=== PATIENT | male | born 1930 | race Caucasian/White ===

== ENCOUNTER 2016-03-30 10:37 | Outpatient (CLI) | payer MEDICARE, BC | END 2016-03-30 10:38 | disposition home or self-care (01) | DX: R30.0 Dysuria (principal) ==

== ENCOUNTER 2016-03-30 13:33 | Outpatient (CLI) | payer MEDICARE, BC | END 2016-03-30 13:34 | disposition home or self-care (01) | DX: R05 Cough (principal); M50.30 Other cervical disc degeneration, unspecified cervical region; M47.812 Spondylosis without myelopathy or radiculopathy, cervical region; R30.0 Dysuria ==

== ENCOUNTER 2016-04-03 | Outpatient (CLI) | payer MEDICARE, BC | END 2016-04-03 13:35 | disposition home or self-care (01) | DX: R07.9 Chest pain, unspecified (principal) ==

== ENCOUNTER 2016-04-07 09:08 | Outpatient (CLI) | payer MEDICARE, BC | END 2016-04-07 09:09 | disposition home or self-care (01) | DX: N39.0 Urinary tract infection, site not specified (principal) ==

== ENCOUNTER 2016-06-17 21:06 | Outpatient (CLI) | payer MEDICARE, BC | END 2016-06-17 21:07 | disposition short-term general hospital (02) | DX: R10.9 Unspecified abdominal pain (principal) | CPT/HCPCS: A0170; A0425; A0429 ==

== ENCOUNTER 2016-06-19 12:35 | Outpatient (CLI) | payer MEDICARE, BC | END 2016-06-19 12:36 | disposition home or self-care (01) | DX: N40.1 Benign prostatic hyperplasia with lower urinary tract symptoms (principal); I25.9 Chronic ischemic heart disease, unspecified; N18.3 Chronic kidney disease, stage 3 (moderate); R05 Cough; K21.9 Gastro-esophageal reflux disease without esophagitis; E78.5 Hyperlipidemia, unspecified; D61.818 Other pancytopenia; L29.9 Pruritus, unspecified; E03.9 Hypothyroidism, unspecified; N39.0 Urinary tract infection, site not specified ==

== ENCOUNTER 2016-06-21 11:31 | Outpatient (CLI) | payer MEDICARE, BC ==
--- NOTE | 2016-06-21 16:44 | XRAY Report ---
THREE VIEW LUMBAR SPINE: 06/21/2016 CLINICAL INDICATION: Lucency of spine on CT. FINDINGS: AP, lateral, and coned down views of the lumbar spine are compared to previous films of . No CT is available for comparison. There has been progression of degenerative disk and facet disease from 2012, with increasing disk spa ce narrowing and osteophyte formations. There is no evidence of compression fracture or subluxation. Vascular calcifications are present. IMPRESSION: PROGRESSION OF DEGENERATIVE CHANGES OF THE LUMBAR SPINE FROM 05/28/2012. JOB #: [id number] EXT JOB #:[id number]
== END 2016-06-21 11:32 | disposition home or self-care (01) ==
LOC: DI.S 11:31
PROVIDERS: ATTEND Internal Medicine
DX: M51.36 Other intervertebral disc degeneration, lumbar region (principal); M47.896 Other spondylosis, lumbar region
CPT/HCPCS: 72100

== ENCOUNTER 2016-06-23 10:24 | Outpatient (CLI) | payer MEDICARE, BC ==
[2016-06-27 23:33] LABS: ALPHA 1 GLOBULIN 0.3 g/dL (0.2-0.3); ALPHA 2 GLOBULIN 0.6 g/dL (0.5-0.9); BETA 1 GLOBULIN 0.4 g/dL (0.4-0.6); BETA 2 GLOBULIN 0.3 g/dL (0.2-0.5)
[2016-06-28 16:32] LABS: TEST RESULT REPORT (())
== END 2016-06-23 10:25 | disposition home or self-care (01) ==
LOC: LAB.F 10:24
PROVIDERS: ATTEND Internal Medicine
DX: D61.818 Other pancytopenia (principal)
CPT/HCPCS: 36415; 81599; 82570; 84155; 84156; 84165; 84166; 86335

== ENCOUNTER 2016-06-30 22:36 | Outpatient (CLI) | payer MEDICARE, BC | END 2016-06-30 22:37 | disposition critical access hospital (66) | DX: R00.2 Palpitations (principal) | CPT/HCPCS: A0425; A0427 ==

== ENCOUNTER 2016-06-30 23:11 | Emergency (ER) | payer MEDICARE, BC ==
--- NOTE | 2016-06-30 23:28 | ED Physician Documentation ---
PD HPI CHEST PAIN - Stated complaint Stated Complaint: HEART PALPITATIONS - Chief complaint Chief Complaint: Cardiac - History obtained from History obtained from: Patient - History of Present Illness Timing - onset: How many minutes ago, How many hours ago (1) Timing - onset during: Rest Timing - details: Abrupt onset, Now resolved Quality: Other (palpitations) Associated symptoms: Palpitations. No: Shortness of air, Diaphoresis, Nausea, Vomiting, Feeling faint / dizzy Similar symptoms before: Work up / diagnostics, Treatment Recently seen: Not recently seen - Additional information Additional information: Patient is a 86 year old male with a history of a fib and multiple stents who is presenting to the emergency department for palpitations. according to patient and ems patient was lying in bed when he felt his heart racing. Patient states that it felt fast a regular. patient lives alone and called ems. when ems arrived the symptoms had already stopped. Patient took his atenolol which he had skipped earlier. Patient denied any chest pain, or shortness of breath with the episode. Upon arrival to the emergency department patient denied any acute complaints. Review of Systems Constitutional: denies: Fever, Chills, Myalgias Eyes: denies: Photophobia, Discharge, Irritation Ears: denies: Ear pain Nose: denies: Rhinorrhea / runny nose, Congestion Throat: denies: Oral lesions / sores, Sore throat Respiratory: denies: Dyspnea, Cough, Wheezing GI: reports: Abdominal Pain, Constipation : denies: Dysuria, Frequency, Hesitancy Skin: denies: Rash, Lesions Musculoskeletal: denies: Neck pain, Back pain Neurologic: denies: Generalized weakness, Focal weakness, Numbness Immunocompromised: denies: Immunocompromised PD PAST MEDICAL HISTORY - Past Medical History Cardiovascular: Other Respiratory: Pneumonia Neuro: None Endocrine/Autoimmune: HyPOthyroidism GI: GERD, Hiatal hernia, Diverticulitis : Frequency HEENT: Glaucoma Psych: Depression Musculoskeletal: Osteoarthritis Derm: None - Past Surgical History Past Surgical History: Yes General: Cholecystectomy, Appendectomy, Colonoscopy Ortho: Arthroscopic surgery Cardiovascular: CABG, Coronary stent HEENT: Cataracts, Tonsil/Adenoidectomy - Present Medications Home Medications: Ambulatory Orders Medication Instructions Recorded Confirmed Aspirin 81 mg PO DAILY 02/07/13 06/30/16 Atenolol 12.5 mg PO BID 02/07/13 06/30/16 Clonazepam 0.5 mg PO DAILY PRN 02/07/13 06/30/16 Levothyroxine Sodium [Synthroid] 25 mcg PO DAILY 02/07/13 06/30/16 Brinzolamide 1% Ophth Drops [Azopt 1 drop RIGHTEYE DAILY 03/27/15 06/30/16 1% Ophth Drops] Rosuvastatin Calcium [Crestor] 5 mg PO DAILY 03/27/15 06/30/16 Omeprazole [PriLOSEC] 0 mg PO DAILY 06/30/16 06/30/16 - Allergies Allergies/Adverse Reactions: Allergies Allergy/AdvReac Type Severity Reaction Status Date / Time lorazepam [From Ativan] Allergy Intermediate Nausea Verified 06/30/16 23:18 ciprofloxacin HCl * AdvReac Intermediate confusion Verified 06/30/16 23:18 [From Cipro] codeine AdvReac Intermediate Cramps Verified 06/30/16 23:18 levofloxacin [From Levaquin] AdvReac Intermediate confusion Verified 06/30/16 23 :18 Sulfa (Sulfonamide AdvReac Intermediate Nausea Verified 06/30/16 23:18 Antibiotics) - Social History Does the pt smoke?: No Smoking Status: Former smoker Does the pt drink ETOH?: No Does the pt have substance abuse?: No - Immunizations Immunizations are current?: Yes - POLST Patient has POLST: Yes PD ED PE NORMAL - Vitals Vital signs reviewed: Yes - General General: Alert and oriented X 3, No acute distress, Well developed/nourished - HEENT HEENT: Atraumatic, PERRL - Neck Neck: Supple, no meningeal sign, No JVD - Cardiac Cardiac: RRR, No murmur, No rub - Respiratory Respiratory: No respiratory distress, Clear bilaterally - Abdomen Abdomen: Soft, Non distended - Derm Derm: Normal color, Warm and dry, No rash - Extremities Extremities: No deformity, No tenderness to palpate, No calf tenderness / cord - Neuro Neuro: Alert and oriented X 3, visual basic developer 2-12 intact, No motor deficit, No sensory deficit, Normal speech - Psych Psych: Normal mood, Normal affect Results - Vitals Vitals: Vital Signs - 24 hr 06/30/16 07/01/16 23:12 00:17 Temperature 36.3 C L Heart Rate 67 61 Respiratory 16 16 Rate Blood Pressure 163/77 H 142/71 H O2 Saturation 100 97 Oxygen O2 Source Room air - EKG (time done) 2313 Rate: Rate (enter#) (66) Rhythm: NSR [place]: Normal Intervals: Normal [place] QRS: Normal Ischemia: Normal ST segments Compare to prior EKG: Old EKG unavailable - Labs Labs: Laboratory Tests 06/30/16 06/30/16 06/30/16 23:27 23:27 23:27 WBC 2.6 L RBC 3.20 L Hgb 10.6 L Hct 30.5 L MCV 95.2 H MCH 33.1 H MCHC 34.7 RDW 14.3 Plt Count 103 L MPV 8.5 Neut # 1.4 L Lymph # 0.9 L [place] # 0.2 Eos # 0.1 Baso # 0.0 Absolute Nucleated RBC 0.00 Nucleated RBCs 0.0 Manual Slide Review Indicated Platelet Estimate DECREASED (<130,000) Platelet Morphology NORMAL APPEARANCE RBC Morph Micro Appear 2+ OVALOCYTES Sodium 137 Potassium 4.0 Chloride 109 Carbon Dioxide 21 Anion Gap 7.0 BUN 14 Creatinine 1.1 Estimated GFR (MDRD) 64 L Glucose 86 Calcium 8.6 Phosphorus 3.0 Magnesium 1.8 Total Bilirubin 0.5 AST 19 ALT 18 Alkaline Phosphatase 61 Troponin I < 0.04 B-Natriuretic Peptide Total Protein 6.5 L Albumin 3.9 Globulin 2.6 Albumin/Globulin Ratio 1.5 Lipase 28 TSH 06/30/16 06/30/16 23:27 23:27 WBC RBC Hgb Hct MCV MCH MCHC RDW Plt Count MPV Neut # Lymph # [place] # Eos # Baso # Absolute Nucleated RBC Nucleated RBCs Manual Slide Review Platelet Estimate Platelet Morphology RBC Morph Micro Appear Sodium Potassium Chloride Carbon Dioxide Anion Gap BUN Creatinine Estimated GFR (MDRD) Glucose Calcium Phosphorus Magnesium Total Bilirubin AST ALT Alkaline Phosphatase Troponin I B-Natriuretic Peptide 135 H Total Protein Albumin Globulin Albumin/Globulin Ratio Lipase TSH 3.98 - Rads (name of study) chest x-ray Radiology: Final report received (mild cardiomegaly) PD MEDICAL DECISION MAKING - ED course Complexity details: reviewed old records, reviewed results, re-evaluated patient , considered differential, d/w patient ED course: Patient was seen and examined at bedside. patient was in no acute distress. vital signs were within normal limits. ekg was performed and revealed nsr at 66. labs and x-ray were within normal limits aside from a leukopenia. Patient states that he has a follow up with a cork painter and grader in 10 days for that. Patient remained in the sinus rhythm, and continued to deny any chest pain or shortness of breath while in the emergency department. Patient required no further work up at this time and was stable for discharge with outpatient follow up. Departure - Departure Disposition: Home, Self Care Clinical Impression: Intermittent palpitations Condition: Good Instructions: ED Palpitations Follow-Up: primary,care provider [Other] - Within 3 Days Comments: Your diagnostics today were within normal limits. the ekg was normal sinus rhythm. Your wbc continues to remain low so you will need to follow up with your cork painter and grader for that. I would recommend following up with your pmd or heart doctor and do a trial of a holter monitor. For your bloating I would recommend metamucil daily as well by a probiotic. You can continue to follow up with your gi doctor and follow their recommendations. You may return to the emergency department at any time for new, worsening or uncontrollable symptoms.
[2016-06-30 23:36] LABS: BASOPHILS % (AUTO) 0.6 %; EOSINOPHILS # (AUTO) 0.1 10^3/uL (0.0-0.7); EOSINOPHILS % (AUTO) 2.2 %; HCT - HEMATOCRIT 30.5 % (42.0-52.0); HGB - HEMOGLOBIN 10.6 g/dL (14.0-18.0); LYMPHOCYTES # (AUTO) 0.9 10^3/uL (1.5-3.5); LYMPHOCYTES % (AUTO) 34.8 %; MEAN CORPUSCULAR HEMOGLOBIN 33.1 pg (27.0-31.0); MEAN CORPUSCULAR HGB CONC 34.7 g/dL (32.0-36.0); MEAN CORPUSCULAR VOLUME 95.2 fL (80.0-94.0); MEAN PLATELET VOLUME 8.5 fL (7.4-11.4); MONOCYTES # (AUTO) 0.2 10^3/uL (0.0-1.0); NEUTROPHILS # (AUTO) 1.4 10^3/uL (1.5-6.6); NEUTROPHILS % (AUTO) 53.4 %; RED CELL DISTRIBUTION WIDTH 14.3 % (12.0-15.0); UNCORRECTED WHITE BLOOD COUNT 2.6 x10^3/uL; WHITE BLOOD COUNT 2.6 x10^3/uL (4.8-10.8)
[2016-06-30 23:51] LABS: ALBUMIN/GLOBULIN RATIO 1.5 (1.0-2.2); BILIRUBIN,TOTAL 0.5 mg/dL (0.2-1.0); CALCIUM 8.6 mg/dL (8.5-10.3); CREATININE 1.1 mg/dL (0.6-1.2); MAGNESIUM 1.8 mg/dL (1.7-2.8); TOTAL PROTEIN 6.5 g/dL (6.7-8.2)
--- NOTE | 2016-07-01 00:14 | XRAY Preliminary Report ---
Exam: XR Chest 1 View IMPRESSION: 1. Mild cardiac enlargement. 2. Hypoventilatory changes. [facility] SITE ID: [id number]
--- NOTE | 2016-07-01 00:16 | XRAY Report ---
EXAM: CHEST RADIOGRAPHY EXAM DATE: 06/30/2016 11:59 PM. CLINICAL HISTORY: Palpitations. COMPARISON: None. TECHNIQUE: 1 view. FINDINGS: Lungs/Pleura: Patchy bilateral right greater than left lower lobe opacities. Decreased lung volumes. No pneumothorax or large effusions. Mediastinum: Sternotomy. Mild cardiac enlargement. Ectatic thoracic aorta. EKG leads overlie the ches t. Other: None. IMPRESSION: 1. Mild cardiac enlargement. 2. Hypoventilatory changes. [facility] Referring Provider Line: [phone] SITE ID: [id number]
[2016-07-01 00:18] VITALS: BP 142/71
[2016-07-01 00:29] LABS: PLATELET ESTIMATE, MANUAL DECREASED (<130,000) (NORMAL); PLATELET MORPHOLOGY NORMAL APPEARANCE (NORMAL)
== END 2016-07-01 00:51 | disposition home or self-care (01) ==
LOC: EDUNIT# → ED 23:11
DX: R00.2 Palpitations (principal); I48.91 Unspecified atrial fibrillation; E03.9 Hypothyroidism, unspecified; K21.9 Gastro-esophageal reflux disease without esophagitis; M19.90 Unspecified osteoarthritis, unspecified site; Z79.82 Long term (current) use of aspirin; Z87.891 Personal history of nicotine dependence
CPT/HCPCS: 36415; 71010; 80053; 83690; 83735; 83880; 84100; 84443; 84484; 85025; 93005; 93010; 99284; 99285

== ENCOUNTER 2016-07-06 10:10 | Outpatient (CLI) | payer MEDICARE, BC ==
[2016-07-06 18:26] LABS: BASOPHILS % (AUTO) 0.5 %; EOSINOPHILS % (AUTO) 1.5 %; HCT - HEMATOCRIT 35.5 % (42.0-52.0); HGB - HEMOGLOBIN 11.6 g/dL (14.0-18.0); LYMPHOCYTES % (AUTO) 25.3 %; MEAN CORPUSCULAR HEMOGLOBIN 32.1 pg (27.0-31.0); MEAN CORPUSCULAR HGB CONC 32.7 g/dL (32.0-36.0); MEAN CORPUSCULAR VOLUME 98.1 fL (80.0-94.0); MEAN PLATELET VOLUME 9.1 fL (7.4-11.4); MONOCYTES % (AUTO) 8.2 %; NEUTROPHILS % (AUTO) 64.5 %; RED BLOOD COUNT 3.62 10^6/uL (4.70-6.10); RED CELL DISTRIBUTION WIDTH 14.4 % (12.0-15.0); UNCORRECTED WHITE BLOOD COUNT 2.5 x10^3/uL; WHITE BLOOD COUNT 2.5 x10^3/uL (4.8-10.8)
[2016-07-06 18:29] LABS: BAND NEUTROPHILS % (MANUAL) 0 %
[2016-07-06 18:30] LABS: BUN - BLOOD UREA NITROGEN 14 mg/dL (6-20); CARBON DIOXIDE - CO2 24 mmol/L (21-32); CHLORIDE 107 mmol/L (101-111); CHOL/HDL RATIO 3.7 (<5.0); CHOLESTEROL 170 mg/dL; CREATININE 1.1 mg/dL (0.6-1.2); GFR - MDRD 64 (>89); GLUCOSE 90 mg/dL (70-100); HDL CHOLESTEROL 46 mg/dL; LDL/HDL RATIO 2.4 (<3.6); POTASSIUM 4.4 mmol/L (3.5-5.0); SODIUM 138 mmol/L (135-145); TRIGLYCERIDES 74 mg/dL; VLDL CHOLESTEROL 15 mg/dL
[2016-07-06 18:46] LABS: EOSINOPHILS % (MANUAL) 1 %; LYMPHOCYTES % (MANUAL) 23 %; NEUTROPHILS % (MANUAL) 74 %; NP AUTO DIFFERENTIAL? YES; NP MAN DIFFERENTIAL? NO; PLATELET ESTIMATE, MANUAL DECREASED (<130,000) (NORMAL); PLATELET MORPHOLOGY NORMAL APPEARANCE (NORMAL); TOTAL CELLS COUNTED 100
[2016-07-06 19:04] LABS: H. PYLORI IGG ANTIBODY POSITIVE (Negative); HPYLORI NEG QC Negative (Negative); HPYLORI POS QC POSITIVE (Positive)
== END 2016-07-06 10:11 | disposition home or self-care (01) ==
LOC: LAB.F 10:10
PROVIDERS: ATTEND Internal Medicine
DX: Z00.00 Encounter for general adult medical examination without abnormal findings (principal); R10.9 Unspecified abdominal pain; E03.9 Hypothyroidism, unspecified; N40.1 Benign prostatic hyperplasia with lower urinary tract symptoms; I25.9 Chronic ischemic heart disease, unspecified; N18.3 Chronic kidney disease, stage 3 (moderate); Z86.010 Personal history of colon polyps; E78.5 Hyperlipidemia, unspecified; N39.0 Urinary tract infection, site not specified; D61.818 Other pancytopenia; L29.9 Pruritus, unspecified; H91.90 Unspecified hearing loss, unspecified ear; K22.5 Diverticulum of esophagus, acquired
CPT/HCPCS: 36415; 80048; 80061; 84443; 85025; 87339

== ENCOUNTER 2016-07-15 10:01 | Outpatient (CLI) | payer MEDICARE, BC ==
--- NOTE | 2016-07-16 18:01 | Ultrasound Report ---
EXAM: MESENTERIC/CELIAC ARTERY DOPPLER ULTRASOUND EXAM DATE: 07/15/2016 11:28 AM. CLINICAL HISTORY: Abdominal pain. Unintentional weight loss. COMPARISON: CT abdomen/pelvis 03/27/2015. TECHNIQUE: Real-time sonographic vascular imaging was performed by the knurling machine tender through the [employer] arterial system with a linear transducer utilizing color-flow, Doppler flow and spectral analysi s. Multiple sales representative gas service static images were saved for review. FINDINGS: Aorta: 73cm/sec. Celiac Maybeury: Origin: 224 cm/sec. Proximal: 187 cm/sec. Mid: Unable to obtain. Distal: Unable to obtain. Hepatic Artery: 150 cm/sec. Splenic Artery: 138 cm/sec. Superior Mesenteric Artery: Unable to obtain. Inferior Mesenteric Artery: Origin: 85 cm/sec. Proximal: Unable to obtain. Mid: Unable to obtain. Distal: Unable to obtain. IMPRESSION: 1. Per knurling machine tender notes, extremely limited exam due to overlying bowel gas and patient discomfort wi th probe pressure. 2. The entire SMA, mid/distal celiac axis, and ROSAMARIA beyond the origin were not visualized. 3. 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 However, no significant stenosis is seen at this site on prior contrast-enhanced CT abdomen/pelvis. Consider further evaluation with CTA abdomen/pelvis. 3. Normal velocity at the ROSAMARIA origin. 4. 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 [facility] Referring Provider Line: [phone] SITE ID: [id number]
== END 2016-07-15 10:02 | disposition home or self-care (01) ==
LOC: DI 10:01
PROVIDERS: ATTEND Internal Medicine Gastroenterology
DX: R10.9 Unspecified abdominal pain (principal); I77.811 Abdominal aortic ectasia; R63.4 Abnormal weight loss
CPT/HCPCS: 93975

== ENCOUNTER 2016-07-19 12:03 | Day surgery (SDC) | payer MEDICARE, BC ==
[2016-07-19] MEDS ORDERED: LACTATED RINGERS 1,000 ML IV ONE (12:29)
[2016-07-19] MEDS ORDERED: MIDAZOLAM 2 MG/2 ML VIAL IVP ONE (13:35)
[2016-07-19] MEDS ORDERED: fentaNYL 100 MCG/2 ML VIAL IVP ONE (13:35)
[2016-07-19 14:47] VITALS: BP 135/61
== END 2016-07-19 12:04 | disposition home or self-care (01) ==
LOC: SDS 12:03
PROVIDERS: ATTEND Internal Medicine
PROC: 0DB78ZX Excision of Stomach, Pylorus, Via Natural or Artificial Opening Endoscopic, Diagnostic (ICD-10-PCS; 2016-07-19)
PROC: 0DB68ZX Excision of Stomach, Via Natural or Artificial Opening Endoscopic, Diagnostic (ICD-10-PCS; principal; 2016-07-19 13:30)
DX: R10.13 Epigastric pain (principal); R14.0 Abdominal distension (gaseous); K22.2 Esophageal obstruction; K44.9 Diaphragmatic hernia without obstruction or gangrene; E78.00 Pure hypercholesterolemia, unspecified; Z79.82 Long term (current) use of aspirin; E03.9 Hypothyroidism, unspecified
CPT/HCPCS: 43239; J7120; 88305

== ENCOUNTER 2016-07-28 07:00 | Outpatient (CLI) | payer MEDICARE, BC | END 2016-07-28 07:01 | disposition home or self-care (01) | LOC: LAB.R 07:00 | PROVIDERS: ATTEND Internal Medicine Gastroenterology | DX: R10.9 Unspecified abdominal pain (principal) | CPT/HCPCS: 87338 ==

== ENCOUNTER 2016-08-11 08:00 | Outpatient (CLI) | payer MEDICARE, BC | END 2016-08-11 08:01 | disposition home or self-care (01) | LOC: LAB.R 08:00 | PROVIDERS: ATTEND Internal Medicine Gastroenterology | DX: R10.9 Unspecified abdominal pain (principal); K57.92 Diverticulitis of intestine, part unspecified, without perforation or abscess without bleeding | CPT/HCPCS: 87338 ==

== ENCOUNTER 2016-08-27 19:08 | Outpatient (CLI) | payer MEDICARE, BC | END 2016-08-27 19:09 | disposition short-term general hospital (02) | LOC: EMS 19:08 | PROVIDERS: ATTEND Surgery | DX: R19.00 Intra-abdominal and pelvic swelling, mass and lump, unspecified site (principal); M79.89 Other specified soft tissue disorders; R53.1 Weakness | CPT/HCPCS: A0170; A0425; A0429 ==

== ENCOUNTER 2016-09-06 08:00 | Outpatient (CLI) | payer MEDICARE, BC | END 2016-09-06 08:01 | disposition home or self-care (01) | LOC: LAB.R 08:00 | PROVIDERS: ATTEND Internal Medicine Gastroenterology | DX: R10.9 Unspecified abdominal pain (principal); K57.92 Diverticulitis of intestine, part unspecified, without perforation or abscess without bleeding | CPT/HCPCS: 87338 ==

== ENCOUNTER 2016-09-08 08:50 | Outpatient (CLI) | payer MEDICARE, BC ==
[2016-09-08 18:07] LABS: BASOPHILS % (AUTO) 0.3 %; EOSINOPHILS % (AUTO) 1.7 %; HCT - HEMATOCRIT 35.1 % (42.0-52.0); HGB - HEMOGLOBIN 11.5 g/dL (14.0-18.0); LYMPHOCYTES # (AUTO) 0.5 10^3/uL (1.5-3.5); LYMPHOCYTES % (AUTO) 21.3 %; MEAN CORPUSCULAR HEMOGLOBIN 32.6 pg (27.0-31.0); MEAN CORPUSCULAR HGB CONC 32.9 g/dL (32.0-36.0); MEAN CORPUSCULAR VOLUME 99.2 fL (80.0-94.0); MONOCYTES # (AUTO) 0.2 10^3/uL (0.0-1.0); MONOCYTES % (AUTO) 7.8 %; NEUTROPHILS # (AUTO) 1.7 10^3/uL (1.5-6.6); NEUTROPHILS % (AUTO) 68.9 %; NUCLEATED RED BLOOD CELLS AUTO 0.1 /100WBC; RED BLOOD COUNT 3.54 10^6/uL (4.70-6.10); RED CELL DISTRIBUTION WIDTH 14.5 % (12.0-15.0); UNCORRECTED WHITE BLOOD COUNT 2.4 x10^3/uL; WHITE BLOOD COUNT 2.4 x10^3/uL (4.8-10.8)
[2016-09-08 18:11] LABS: CALCIUM 8.6 mg/dL (8.5-10.3); CREATININE 1.2 mg/dL (0.6-1.2); POTASSIUM 4.2 mmol/L (3.5-5.0)
[2016-09-08 18:55] LABS: INR 1.1 (0.8-1.2)
[2016-09-08 19:02] LABS: PARTIAL THROMBOPLASTIN TIME 26.7 secs (24.9-33.3)
[2016-09-08 21:55] LABS: PLATELET ESTIMATE, MANUAL DECREASED (<130,000) (NORMAL); PLATELET MORPHOLOGY 1+ GIANT PLATELETS (NORMAL)
== END 2016-09-08 08:51 | disposition home or self-care (01) ==
LOC: LAB.F 08:50
PROVIDERS: ATTEND Internal Medicine Cardiovascular Disease
DX: Z01.812 Encounter for preprocedural laboratory examination (principal); I25.118 Atherosclerotic heart disease of native coronary artery with other forms of angina pectoris; R94.39 Abnormal result of other cardiovascular function study; Z79.899 Other long term (current) drug therapy
CPT/HCPCS: 36415; 80048; 85025; 85610; 85730

== ENCOUNTER 2016-11-09 10:35 | Outpatient (CLI) | payer MEDICARE, BC ==
[2016-11-09 17:56] LABS: BILIRUBIN,URINE NEGATIVE (NEGATIVE)
[2016-11-09 17:57] LABS: ALBUMIN/GLOBULIN RATIO 1.6 (1.0-2.2); BILIRUBIN,TOTAL 0.9 mg/dL (0.2-1.0); CALCIUM 8.5 mg/dL (8.5-10.3); CREATININE 1.3 mg/dL (0.6-1.2); POTASSIUM 4.4 mmol/L (3.5-5.0); TOTAL PROTEIN 6.7 g/dL (6.7-8.2)
[2016-11-09 18:07] LABS: BASOPHILS % (AUTO) 0.3 %; EOSINOPHILS % (AUTO) 1.2 %; HCT - HEMATOCRIT 32.6 % (42.0-52.0); LYMPHOCYTES # (AUTO) 0.7 10^3/uL (1.5-3.5); LYMPHOCYTES % (AUTO) 22.9 %; MEAN CORPUSCULAR HEMOGLOBIN 32.9 pg (27.0-31.0); MEAN CORPUSCULAR HGB CONC 33.7 g/dL (32.0-36.0); MEAN CORPUSCULAR VOLUME 97.4 fL (80.0-94.0); MEAN PLATELET VOLUME 8.8 fL (7.4-11.4); MONOCYTES # (AUTO) 0.2 10^3/uL (0.0-1.0); MONOCYTES % (AUTO) 7.6 %; NEUTROPHILS # (AUTO) 2.2 10^3/uL (1.5-6.6); NUCLEATED RED BLOOD CELLS AUTO 0.3 /100WBC; RED BLOOD COUNT 3.34 10^6/uL (4.70-6.10); RED CELL DISTRIBUTION WIDTH 14.1 % (12.0-15.0); UNCORRECTED WHITE BLOOD COUNT 3.2 x10^3/uL; WHITE BLOOD COUNT 3.2 x10^3/uL (4.8-10.8)
[2016-11-09 18:14] LABS: UA CHARGE (STRIP ONLY) YES; UR CULTURE IF IND NOT INDICATED
== END 2016-11-09 10:36 | disposition home or self-care (01) ==
LOC: LAB.F 10:35
PROVIDERS: ATTEND Internal Medicine
DX: I25.9 Chronic ischemic heart disease, unspecified (principal); R35.0 Frequency of micturition; N18.3 Chronic kidney disease, stage 3 (moderate); R05 Cough; K21.9 Gastro-esophageal reflux disease without esophagitis; E78.5 Hyperlipidemia, unspecified; F41.8 Other specified anxiety disorders; D61.818 Other pancytopenia; L29.9 Pruritus, unspecified; E03.9 Hypothyroidism, unspecified
CPT/HCPCS: 36415; 80053; 81001; 81003; 85025; 87086

== ENCOUNTER 2017-01-01 11:56 | Outpatient (CLI) | payer MEDICARE, BC | END 2017-01-01 11:57 | disposition home or self-care (01) | LOC: LAB.S 11:56 | PROVIDERS: ATTEND Internal Medicine | DX: E03.9 Hypothyroidism, unspecified (principal); I25.9 Chronic ischemic heart disease, unspecified; N18.3 Chronic kidney disease, stage 3 (moderate); K21.9 Gastro-esophageal reflux disease without esophagitis; E78.5 Hyperlipidemia, unspecified; D61.818 Other pancytopenia | CPT/HCPCS: 36415; 84443 ==

== ENCOUNTER 2017-02-26 15:20 | Emergency (ER) | payer MEDICARE, BC ==
[2017-02-26] MEDS ORDERED: METOPROLOL TARTRATE 50 MG TABLET PO STA (16:25)
--- NOTE | 2017-02-26 16:35 | ED Physician Documentation ---
PD HPI DYSPNEA - Stated complaint Stated Complaint: LIGHT HEADED/WEAKNESS - Chief complaint Chief Complaint: Cardiac - History obtained from History obtained from: Patient, Family (daughter) - History of Present Illness Timing - onset: Other (87-year-old gentleman with history of coronary disease status post remote bypass and stenting, also has myelodysplastic syndrome undergoing chemotherapy. He was switched from atenolol to metoprolol yesterday, going from 12.5 mill grams twice daily of atenolol to 25 mg twice daily of metoprolol. Last night he started to feel rapid heart rate and mild shortness of breath which occurred this morning, no ongoing chest pain or shortness of breath at this juncture.) Review of Systems Constitutional: denies: Fever, Chills Ears: denies: Loss of hearing, Ear pain Nose: denies: Rhinorrhea / runny nose, Congestion Throat: denies: Sore throat Cardiac: reports: Palpitations. denies: Chest pain / pressure Respiratory: reports: Dyspnea. denies: Cough GI: reports: Diarrhea (A few days ago, gone). denies: Abdominal Pain, Nausea, Vomiting PD PAST MEDICAL HISTORY - Past Medical History Cardiovascular: Angina, Atrial fibrillation, Arrhythmia Respiratory: Pneumonia Neuro: None Endocrine/Autoimmune: HyPOthyroidism GI: GERD, Ulcers, Hemorrhoids, Diverticulitis : Benign prostate hypertrophy, Frequency HEENT: Glaucoma, Chronic hearing loss Psych: Panic attacks Musculoskeletal: Osteoarthritis Derm: Rosacea Other Past Medical History: Myelodysplastic syndrome - Past Surgical History Past Surgical History: Yes General: Cholecystectomy, Appendectomy, Colonoscopy Ortho: Arthroscopic surgery Cardiovascular: CABG, Coronary stent HEENT: Cataracts, Tonsil/Adenoidectomy - Present Medications Home Medications: Ambulatory Orders Medication Instructions Recorded Confirmed Aspirin 81 mg PO DAILY 02/07/13 02/20/17 Atenolol 12.5 mg PO BID 02/07/13 02/20/17 Rosuvastatin Calcium [Crestor] 5 mg PO DAILY 03/27/15 02/20/17 Brinzolamide 1% Ophth Drops [Azopt 1 drops OPTH BID 07/25/16 02/20/17 1% Ophth Drops] Levothyroxine Sodium [Synthroid] 25 mcg PO DAILY 07/25/16 02/20/17 Nitroglycerin [Nitrostat] 0.3 mg SL ONCE PRN 07/25/16 02/20/17 clonazePAM [KlonoPIN] 0.5 mg PO DAILY 01/25/17 02/20/17 Ondansetron HCl [Zofran] 1 tab PO DAILY PRN #30 tablet 01/29/17 02/20/17 Omeprazole 1 cap PO DAILY 02/06/17 02/20/17 Metoprolol Succinate [Toprol Xl] 1.5 tab PO BID #45 tablet 02/26/17 - Allergies Allergies/Adverse Reactions: Allergies Allergy/AdvReac Type Severity Reaction Status Date / Time lorazepam [From Ativan] Allergy Intermediate Nausea Verified 07/14/16 14:01 amylase [From Creon] Allergy Edema Verified 07/14/16 14:00 lipase [From Creon] Allergy Edema Verified 07/14/16 14:00 protease [From Creon] Allergy Edema Verified 07/14/16 14:00 ciprofloxacin HCl * AdvReac Intermediate confusion Verified 07/14/16 14:01 [From Cipro] codeine AdvReac Intermediate Cramps Verified 07/14/16 14:01 levofloxacin [From Levaquin] AdvReac Intermediate confusion Verified 07/14/16 14 :01 Sulfa (Sulfonamide AdvReac Intermediate Nausea Verified 07/14/16 14:01 Antibiotics) - Social History Does the pt smoke?: No Smoking Status: Never smoker Does the pt drink ETOH?: No Does the pt have substance abuse?: No - Immunizations Immunizations are current?: Yes - POLST Patient has POLST: Yes PD ED PE NORMAL - Vitals Vital signs reviewed: Yes - General General: Alert and oriented X 3, No acute distress - HEENT HEENT: PERRL, EOMI - Neck Neck: Supple, no meningeal sign, No bony TTP - Cardiac Cardiac: RRR, Other (He is a 3 out of 6 decrescendo systolic murmur heard best at the right upper sternal border) - Respiratory Respiratory: No respiratory distress, Clear bilaterally - Abdomen Abdomen: Normal bowel sounds, Soft, Non tender - Extremities Extremities: No edema, No calf tenderness / cord - Neuro Neuro: Alert and oriented X 3, Normal speech - Psych Psych: Normal mood, Normal affect Results - Vitals Vitals: Vital Signs - 24 hr 02/26/17 02/26/17 02/26/17 15:38 17:00 19:11 Temperature 36.5 C 37.3 C Heart Rate 78 80 81 Respiratory 12 16 20 Rate Blood Pressure 127/76 131/75 H 154/64 H O2 Saturation 99 99 100 Oxygen O2 Source Room air - EKG (time done) 1532 Rate: Rate (enter#) (79) Rhythm: NSR [place]: Normal Intervals: Normal [place] QRS: Normal Ischemia: Non specific changes Computer interpretation: Agree with computer, Disagree with computer - Labs Labs: Laboratory Tests 02/26/17 02/26/17 02/26/17 16:47 16:47 16:47 WBC 1.1 L* RBC 2.82 L Hgb 8.7 L Hct 25.0 L MCV 88.7 MCH 30.7 MCHC 34.6 RDW 15.1 H Plt Count 94 L MPV 7.2 L Neut # Not Reportable Lymph # Not Reportable [place] # Not Reportable Eos # Not Reportable Baso # Not Reportable Absolute Nucleated RBC Not Reportable Total Counted 100 Band Neuts % (Manual) 0 Abnorm Lymph % (Manual) 0 Metamyelocytes % 1 H Nucleated RBC % Not Reportable Neutrophils # (Manual) 0.2 L* Lymphocytes # (Manual) 0.8 L Monocytes # (Manual) 0.1 Eosinophils # (Manual) 0.0 Basophils # (Manual) 0.0 Manual Slide Review Indicated WBC Morphology 2+ REACTIVE LYMPHS Platelet Estimate DECREASED (<130,000) Platelet Morphology NORMAL APPEARANCE RBC Morph Micro Appear 2+ OVALOCYTES D-Dimer 630.5 H Sodium 133 L Potassium 3.9 Chloride 103 Carbon Dioxide 22 Anion Gap 8.0 BUN 17 Creatinine 1.3 H Estimated GFR (MDRD) 52 L Glucose 99 Calcium 8.4 L Total Bilirubin 1.0 AST 16 ALT 20 Alkaline Phosphatase 73 Troponin I B-Natriuretic Peptide Total Protein 6.9 Albumin 3.7 Globulin 3.2 Albumin/Globulin Ratio 1.2 Lipase 21 L 02/26/17 02/26/17 16:47 16:47 WBC RBC Hgb Hct MCV MCH MCHC RDW Plt Count MPV Neut # Lymph # [place] # Eos # Baso # Absolute Nucleated RBC Total Counted Band Neuts % (Manual) Abnorm Lymph % (Manual) Metamyelocytes % Nucleated RBC % Neutrophils # (Manual) Lymphocytes # (Manual) Monocytes # (Manual) Eosinophils # (Manual) Basophils # (Manual) Manual Slide Review WBC Morphology Platelet Estimate Platelet Morphology RBC Morph Micro Appear D-Dimer Sodium Potassium Chloride Carbon Dioxide Anion Gap BUN Creatinine Estimated GFR (MDRD) Glucose Calcium Total Bilirubin AST ALT Alkaline Phosphatase Troponin I < 0.04 B-Natriuretic Peptide 112 H Total Protein Albumin Globulin Albumin/Globulin Ratio Lipase - Rads (name of study) CTA chest Radiology: EMP read contemporaneously (no PE) PD MEDICAL DECISION MAKING - ED course ED course: 87-year-old gentleman with history of coronary disease and myelodysplastic syndrome presents with fast heart rates overnight with a little bit of dyspnea in the setting of having changed his beta-janina yesterday from atenolol to metoprolol. I suspect this is most likely due to a change in the potency of the beta-janina and he is having mild beta-janina withdrawal, however given his comorbidities differential diagnosis would also include pulmonary embolism and anemia. His blood counts are too bad. He is neutropenic though, but there is no evidence of infection or fever. D-dimer was used to risk stratify him for PE and it was positive, this was followed by CT angiogram of the chest which was negative. We will increase his beta-jnaina from 25 mg twice daily to 37.5 mg twice daily and he is to see his oncologist tomorrow. Departure - Departure Disposition: 01 Home, Self Care Clinical Impression: Pancytopenia, Myelodysplastic syndrome, Palpitations Chest pain Qualifiers: Chest pain type: unspecified Qualified Code(s): R07.9 - Chest pain, unspecified Condition: Good Record reviewed to determine appropriate education?: Yes Instructions: ED Chest Pain Atypical Unkn Cause Prescriptions: Metoprolol Succinate [Toprol Xl] 1.5 tab PO BID #45 tablet Comments: As discussed, you have a heart murmur that was not previously documented, discuss this with your interactive media marketing director. Also as discussed we are increasing your beta-janina, metoprolol, from 25 mg twice a day to 37.5 mg (1-1/2 tablets) twice a day. Follow-up with your oncologist tomorrow as scheduled. She may want to delay your chemotherapy based on your neutropenia and may want to repeat blood work sooner than is planned otherwise.
[2017-02-26 16:55] LABS: BASOPHILS % (AUTO) 0.8 %; EOSINOPHILS % (AUTO) 0.3 %; HGB - HEMOGLOBIN 8.7 g/dL (14.0-18.0); LYMPHOCYTES % (AUTO) 64.7 %; MEAN CORPUSCULAR HEMOGLOBIN 30.7 pg (27.0-31.0); MEAN CORPUSCULAR HGB CONC 34.6 g/dL (32.0-36.0); MEAN CORPUSCULAR VOLUME 88.7 fL (80.0-94.0); MEAN PLATELET VOLUME 7.2 fL (7.4-11.4); NEUTROPHILS % (AUTO) 16.2 %; PLT - PLATELET COUNT 94 10^3/uL (130-450); RED BLOOD COUNT 2.82 10^6/uL (4.70-6.10); RED CELL DISTRIBUTION WIDTH 15.1 % (12.0-15.0)
[2017-02-26 17:06] LABS: ALBUMIN 3.7 g/dL (3.2-5.5); ALBUMIN/GLOBULIN RATIO 1.2 (1.0-2.2); CALCIUM 8.4 mg/dL (8.5-10.3); CREATININE 1.3 mg/dL (0.6-1.2); TOTAL PROTEIN 6.9 g/dL (6.7-8.2)
[2017-02-26 17:07] LABS: WHITE BLOOD COUNT 1.1 x10^3/uL (4.8-10.8)
[2017-02-26 17:09] LABS: ABNORMAL LYMPHS % (MANUAL) 0 %; BAND NEUTROPHILS % (MANUAL) 0 %
--- NOTE | 2017-02-26 17:29 | XRAY Preliminary Report ---
Exam: XR CHEST 2 VIEW X-RAY IMPRESSION: No acute cardiopulmonary abnormality. [facility] SITE ID: [id number]
--- NOTE | 2017-02-26 17:29 | XRAY Report ---
EXAM: CHEST RADIOGRAPHY EXAM DATE: 02/26/2017 05:05 PM. CLINICAL HISTORY: Dyspnea. COMPARISON: 06/30/2016. TECHNIQUE: 2 views. FINDINGS: Lungs/Pleura: No focal opacities evident. No pleural effusion. No pneumothorax. Normal volumes. Mediastinum: Previous median sternotomy noted. There is mild aortic tortuosity. Heart size is normal. Other: There are surgical clips in the right upper quadrant of the abdomen. IMPRESSION: No acute cardiopulmonary abnormality. [facility] Referring Provider Line: [phone] SITE ID: [id number]
[2017-02-26] MEDS ORDERED: IOPAMIDOL-300 100 ML VIAL ONE (17:43)
[2017-02-26 18:05] LABS: NEUTROPHILS % (MANUAL) 20 %
[2017-02-26 18:06] LABS: LYMPHOCYTES # (MANUAL) 0.8 10^3/uL (1.5-3.5); LYMPHOCYTES % (MANUAL) 70 %; METAMYELOCYTES % (MANUAL) 1 %; MONOCYTES # (MANUAL) 0.1 10^3/uL (0.0-1.0); NEUTROPHILS # (MANUAL) 0.2 10^3/uL (1.5-6.6)
[2017-02-26 18:08] LABS: PLATELET ESTIMATE, MANUAL DECREASED (<130,000) (NORMAL); PLATELET MORPHOLOGY NORMAL APPEARANCE (NORMAL)
[2017-02-26] MEDS ORDERED: IOPAMIDOL-300 100 ML VIAL IVP ONE (18:59)
--- NOTE | 2017-02-26 19:41 | CT Preliminary Report ---
Exam: CT CHEST ANGIO (PE) IMPRESSION: 1. No pulmonary emboli. 2. Pacer. [facility] SITE ID: [id number]
--- NOTE | 2017-02-26 19:55 | CT Report ---
EXAM: CT ANGIOGRAM CHEST EXAM DATE: 02/26/2017 07:03 PM. CLINICAL HISTORY: Dyspnea. COMPARISON: 07/14/2013. TECHNIQUE: Routine helical imaging was performed through the chest in the pulmonary arterial phase. I V Contrast: 80 mL Isovue 300. Reconstructions: Coronal 3-D MIP reconstructions.Sagittal and coronal. In accordance with CT protocol optimization, one or more of the following dose reduction techniques w ere utilized for this exam: automated exposure control, adjustment of mA and/or KV based on patient s ize, or use of iterative reconstructive technique. FINDINGS: Pulmonary Arteries: Diagnostic quality: Adequate through the segmental arteries. No evidence for acute or chronic pulmona ry emboli. RV/LV is within normal limits. There is no interventricular septal bowing. There is no reflux of cont rast material in the IVC. Lungs/Pleura: No consolidation, nodules, or edema. No effusions or pneumothorax. Mediastinum: Remote sternotomy. Pacer. No cardiac enlargement or adenopathy. Thoracic Aorta: Unremarkable. Upper Abdomen: Cholecystectomy. Other: None. IMPRESSION: 1. No pulmonary emboli. 2. Pacer. [facility] Referring Provider Line: [phone] SITE ID: [id number]
[2017-02-26 20:15] VITALS: BP 132/74
== END 2017-02-26 20:20 | disposition home or self-care (01) ==
LOC: ED 15:20
DX: D61.818 Other pancytopenia (principal); D46.9 Myelodysplastic syndrome, unspecified; R00.2 Palpitations; R07.9 Chest pain, unspecified; E03.9 Hypothyroidism, unspecified; I25.10 Atherosclerotic heart disease of native coronary artery without angina pectoris; Z95.1 Presence of aortocoronary bypass graft; Z95.5 Presence of coronary angioplasty implant and graft; Z92.21 Personal history of antineoplastic chemotherapy; Z79.82 Long term (current) use of aspirin
CPT/HCPCS: 36415; 71046; 71275; 80053; 83690; 83880; 84484; 85025; 85379; 93005; 99283; 99284; A9270; Q9967

== ENCOUNTER 2017-03-04 20:38 | Outpatient (CLI) | payer MEDICARE, BC | END 2017-03-04 20:39 | disposition short-term general hospital (02) | LOC: EMS 20:38 | PROVIDERS: ATTEND Surgery | DX: R10.32 Left lower quadrant pain (principal) | CPT/HCPCS: A0170; A0425; A0429 ==

== ENCOUNTER 2017-03-22 13:36 | Outpatient (CLI) | payer MEDICARE, BC ==
--- NOTE | 2017-03-22 17:46 | CONSULTATION NOTE ---
Palliative Care Consultation - Referral Referring Provider: Dr. 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 Unfortunately he was hospitalized 03/04-03/08 with diverticuli. He has recovered though he continues, To experience severe fatigue , symptoms of increasing depression, decreased activity tolerance. He does not present with any signs or symptoms of infection, he does have a chronic intermittent cough which he attributes to his GERD. He also has a history of CABG 4 in 2009, with stent implants in 2010. He has recently had his medications changed and increased regarding arrhythmias to metoprolol 50 mg twice daily. Patient presents to palliative care today, requesting a goals of care conversation and information on advanced care planning. His son Daniel is present as well, we also discussed the role of palliative care for symptom management and psychosocial support as well. Medical/Surgical History - Past Medical History Cardiovascular: reports: Coronary artery disease, Angina, Atrial fibrillation, Arrhythmia Respiratory: reports: Pneumonia Neuro: reports: None Endocrine/Autoimmune: reports: HyPOthyroidism GI: reports: GERD, Ulcers, Hemorrhoids, Diverticulitis : reports: Benign prostate hypertrophy, Frequency HEENT: reports: Glaucoma, Chronic hearing loss Psych: reports: Depression Derm: reports: Rosacea MRSA Hx?: No - Past Surgical History General: reports: Cholecystectomy, Appendectomy, Colonoscopy Ortho: reports: Arthroscopic surgery Cardiovascular: reports: CABG, Coronary stent HEENT: reports: Cataracts, Tonsil/Adenoidectomy - Substance History Use: Uses substance without health or social issues: Tobacco (8 pack history; nonsmoder now) Social History - Living Situation Living arrangement: At home Living Situation: Alone (Patient has lived in [facility] for about 20 years , he is a director and play right. He lost his about 3 years ago to a massive stroke. He has a son Daniel, who is presently with this, he has much admiration for him as he has had paraplegia since he has been in his 20s. He also has a daughter in [place] who is coming to stay with him until "the duration". He has many friends and identifies support in the community.) Family History - Family History Family History: Mother: (father at 45), CVA/TIA, Father: , [place], Sister: , CVA/TIA, Other family: Alive and Well (duaghter with breast cancer) Medications/Allergies - Medications Home Medications: Ambulatory Orders Medication Instructions Recorded Confirmed Aspirin 81 mg PO DAILY 02/07/13 03/13/17 Rosuvastatin Calcium [Crestor] 5 mg PO ACHS 03/27/15 03/23/17 Brinzolamide 1% Ophth Drops [Azopt 1 drops OPTH BID 07/25/16 03/23/17 1% Ophth Drops] Levothyroxine Sodium [Synthroid] 25 mcg PO DAILY 07/25/16 03/23/17 Nitroglycerin [Nitrostat] 0.3 mg SL ONCE PRN 07/25/16 03/23/17 clonazePAM [KlonoPIN] 0.5 mg PO DAILY PRN 01/25/17 03/23/17 Metoprolol Succinate [Toprol Xl] 50 tab PO BID 02/27/17 03/23/17 Prochlorperazine Maleate 10 mg PO Q4HR PRN 03/01/17 03/23/17 [Compazine] Ondansetron HCl [Zofran] 4 mg PO Q6HR PRN 03/23/17 03/23/17 Polyethylene Glycol 3350 [Miralax] 17 mg PO DAILY PRN 03/23/17 03/23/17 Senna [Senokot] 8.6 mg PO DAILY PRN 03/23/17 03/23/17 raNITIdine [Zantac] 75 mg PO BID PRN 03/23/17 03/23/17 traZODone [Desyrel] 25 mg PO DAILY 03/23/17 03/23/17 - Allergies Allergies/Adverse Reactions: Allergies Allergy/AdvReac Type Severity Reaction Status Date / Time lorazepam [From Ativan] Allergy Intermediate Nausea Verified 07/14/16 14:01 amylase [From Creon] Allergy Edema Verified 07/14/16 14:00 lipase [From Creon] Allergy Edema Verified 07/14/16 14:00 protease [From Creon] Allergy Edema Verified 07/14/16 14:00 ciprofloxacin HCl * AdvReac Intermediate confusion Verified 07/14/16 14:01 [From Cipro] codeine AdvReac Intermediate Cramps Verified 07/14/16 14:01 levofloxacin [From Levaquin] AdvReac Intermediate confusion Verified 07/14/16 14 :01 Sulfa (Sulfonamide AdvReac Intermediate Nausea Verified 07/14/16 14:01 Antibiotics) Review of Systems - Constitutional Constitutional: reports: Fatigue, Poor appetite, Weight loss. denies: Fever, Chills - Eyes Eyes: reports: Vision loss, Corrective lenses - Ears, Nose & Throat Ears, Nose & Throat: reports: Hearing loss, Dry mouth - Cardiovascular Cardiovascular: reports: Palpitations, Edema (resolved), Exertional dyspnea, Decr. exercise tolerance - Respiratory Respiratory: reports: Cough (Intermittent does respond to ranitidine to his GERD ), SOB with exertion. denies: SOB at rest - Gastrointestinal Gastrointestinal: reports: Nausea (mild with chemotherapy), Reflux/heartburn, Poor appetite, Early satiety - Genitourinary Genitourinary: reports: Frequency - Musculoskeletal Musculoskeletal: reports: Muscle weakness, Assistive devices (uses cane for balance) - Integumentary Integumentary: reports: Dryness - Neurological Neurological: reports: General weakness - Psychiatric Psychiatric: reports: Depression (Reports has never had depression before, attributes it to recent hospitalization, and feeling poorly overall as well as poor sleep) - Endocrine Endocrine: reports: Hypothyroidism - Hematologic/Lymphatic Hematologic/Lymphatic: reports: Anemia, Bruising, Petechiae (history), Recurrent infections (hospitalized for diverticulis 03/04-03/08 interupting chemotherapy) - All Other Systems All Other Systems: reports: Reviewed and negative Physical Exam - Vital Signs Temperature: 37.1 C Pulse Rate: 82 Respiratory Rate: 18 Blood Pressure: 124/72 - Physical Exam General Appearance: positive: No acute distress, Alert Eyes Bilateral: positive: Normal inspection ENT: positive: No signs of dehydration Neck: positive: No JVD, Trachea midline Cardiovascular: positive: Regular rate & rhythm Respiratory: positive: Diminished in bases. negative: Wheezes, Rales, Rhonchi Abdomen: positive: Soft, Nml bowel sounds Skin: positive: Pallor Extremities: positive: No pedal edema Neurologic/Psychiatric: positive: Oriented x3, Weakness, Depressed mood/affect. negative: Flat affect Palliative Care - POLST Patient has POLST: Yes POLST Status: DNR (completed at visit), Selective Treatment Pain: No pain Tiredness/Fatigue: Severe (7-10) Drowsiness/Sedation: Mild (1-3) Nausea: Mild (1-3) Depression: Moderate (4-6) Anxiety: Mild (1-3) Dyspnea: Moderate (4-6) Anorexia: Moderate (4-6), Weight loss Sleep: Sleeps poorly (Reports up frequently to void, as well as some anxiety, also in interrupted with intermittent palpitations at times.) Constipation: Yes, Managed Feelings of wellbeing/Perceived Quality of Life: Fair, Worsening (Patient concerned regarding quality of life, has had recent hospitalization, as well as counts are quite low. Worried about if going to improve, as well as future prognosis.) Performance Status: Patient easily fatigues, has decreased activity tolerance, he is able to attend his own ADLs, but remains mostly homebound at this time - Palliative Care Discussion: Patient's identified DPOA is Dr. Silverio Jiménez [phone]; his son Daniel Palomo Jr. [phone] is visiting currently from [place]; his daughter Pearl Palomo [phone] is coming to be a support/caregiver in next couple of weeks. Patient wanted to talk about end-of-life goals and support. Has End-of- life Hawkins packet, has multiple questions regarding how this works, and process. He is interested in having this as a option, and would like to start the process. Was counseled the patient does need to have a defined 6 month or less prognosis, to be able to start the process. In the context of his interest in wanting to pursue this, I will follow-up with Dr. Garcia regarding this her preceptions base on current status. We also walked through the process , as well as identifying a provider is willing to write the prescriptions. Counseling provided though across the continuum of care, including the difficulties sometimes with MDS regarding the sequela of high risk for infection , multiple hospitalizations, as well as the issue of transfusions. Goals of care conversation also focused on patient's perceptions regarding his definition of quality of life, and threshold for what is acceptable. Currently is just initiating therapy, unclear known response at this point in time but has already been hospitalized several times this last few months. Counseling also provided regarding end-of-life care including hospice whether he pursues DWD are not, and the goal for hospice as far as focusing on relief of suffering and providing comfort. He does wish to have a at home at end of life. Counseling and completion of the MANOJ ST form, with do not attempt resuscitation and selected treatments, antibiotics to prolong life at this point in time, as well as no medical assisted nutrition. This was completed and signed and will provide copy to his PCP and to the medical record. Results - Lab Results Lab results reviewed: Yes Lab and Imaging Results: 2 5 labs include WBC of 0.8, RBC 2.6, hemoglobin 7.7, hematocrit 23.1, and neutrophil count of 0.1. Impression and Recommendations - Palliative Care Impression: This is an 87-year-old gentleman with MDS and severe pancytopenia, he is currently pursuing treatment, his second cycle of Vidaza did get interrupted, he is to resume this if his counts recover next week. He does present with fairly high symptom burden, including fatigue, anorexia, weight loss, depression and mild functional decline. Palliative care to provide support regarding goals of care, visit today also focus on establishing rapport, and instruction on symptom management. Recommendations/Counseling Done: 1. Constipation, intermittent in nature. Given patient's recent hospitalization for diverticular to colitis, with the thought to have been exacerbated by constipation, reviewed simplified bowel program. Instructed if needs to soften stool or increased frequency to initiate MiraLAX 17 g 1 capful daily, this is the mush, if patient has not gone for 24 hours to implement the senna 8.6 mg as the "push". Instructed to continue with adequate fluids. 2. Insomnia. Patient has been on clonazepam for long-term sleep. He is finding frequent awakenings, some of this with anxiety, some with physical symptoms, as well as symptoms of BPH. Had been prescribed trazodone recently by Dr. Aguilar, patient is hesitant to initiate new medications. Discussed using even a half of a half, to evaluate response, did discuss the benefits of trazodone including can escalate up to treat for his symptoms of depression as well. Will we evaluate, secondary patient's anorexia may actually also benefit from mirtazapine. 3. Fatigue, this is multifactorial in origin. Did discuss and counseled regarding energy conservation and pacing. Also instructed if increased symptoms of dizziness, shortness of breath, R alterations in consciousness to report to the ED as he does have a very low crit currently. 4. Pancytopenia. Patient is aware of neutropenic precautions, does wear a mask at all time, as well as falls infection prevention. He has had no fever chills, his cough is attributed to his GERD, he is aware to access urgent care if needed. 5. Advanced care planning. Patient does have a DPO a established, we did complete a MANOJ ST today, has well as counseling provided per his request around with dignity medications. Counseled also on the continuum of care particularly towards end of life the role of hospice support. Would like some assistance in pursuing DWD, message left for Dr. Garcia regarding gathering further information on prognostic variables. Time Spent: 75 minutes with greater than 50% of this done in counseling and coordination of care regarding advanced care planning, completing the MANOJ ST, establishing rapport for palliative care and providing anticipatory guidance
== END 2017-03-22 13:37 | disposition home or self-care (01) ==
LOC: PC 13:36
PROVIDERS: ATTEND Nurse Practitioner Adult Health
DX: Z51.5 Encounter for palliative care (principal); K59.00 Constipation, unspecified; G47.00 Insomnia, unspecified; R53.83 Other fatigue; D61.818 Other pancytopenia; D46.9 Myelodysplastic syndrome, unspecified; Z79.82 Long term (current) use of aspirin; K21.9 Gastro-esophageal reflux disease without esophagitis; M62.81 Muscle weakness (generalized); F32.9 Major depressive disorder, single episode, unspecified; Z66 Do not resuscitate; R11.0 Nausea; Z79.899 Other long term (current) drug therapy
CPT/HCPCS: 99205

== ENCOUNTER 2017-04-02 12:06 | Outpatient (CLI) | payer MEDICARE, BC ==
--- NOTE | 2017-04-02 18:22 | CONSULTATION NOTE ---
Palliative Care Follow Up - Referral Referring Provider: Dr. Doreen Garcia Time of Visit: 3607-2472 Referral setting: [facility] – [place] Referral Reason: MDS with Pancytopenia - Information Sources Records reviewed: Previous records reviewed History/Review of Systems obtained from: Patient Exam limitations: No limitations - History of Present Illness Update Brief HPI Update: This is a patrica 87-year-old gentleman who has lived many years with pancytopenia, most recently was found on bone marrow examination in December secondary to low her counts, to have MDS. 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 This was extended because of the of his son, he is here to restart today. His hemoglobin on 02 05 was 7.7, 03/26 7.5, patient though by the end of the week was quite symptomatic and had a redraw on Sunday with the lowest that had been at 6.7. He did receive a transfusion on Sunday on the floor, after the first transfusion he started to feel poorly with increased shortness of breath, nausea, and dizziness. He did complete both units, did not have fever chills, but continued to fill breathless, nausea, and this overwhelming feeling of exhaustion. He had called oncologist on-call, who told him if it did not improve in 2-3 hours to return to the emergency room, but had attributed this to a transfusion reaction. The nausea has slowly subsided, is no longer shortness of breath, but still has a feeling of overwhelming exhaustion. This has improved though today, but when I spoke to him earlier he was concerned. Patient does have a cardiac history with CABG 4 and stent implants. Recently also had an increase in his metoprolol secondary to arrhythmias, I suspect the side effects may have been cardiac in nature. Today he presents with his vital signs stable, his lungs are clear, and no other sequela. His symptom management continues to be fairly moderate. With fatigue, anorexia , depression and anxiety. Patient acknowledges it is difficult to separate his current symptoms between that of a grief reaction. His son is to be cremated today, they are planning for the , he is hoping he will be able to attend as they would return back to his home community in [place]. His daughter is here, she will be staying with him indefinitely at this point. He also does continue to struggle with insomnia. Social History - Living Situation Living arrangement: At home Living Situation: Alone, With family (Daughter has recently joined him, will be living with him long-term he has many friends in the community that are available for support) Medications/Allergies - Medications Home Medications: Ambulatory Orders Medication Instructions Recorded Confirmed Aspirin 81 mg PO DAILY 02/07/13 04/02/17 Rosuvastatin Calcium [Crestor] 5 mg PO ACHS 03/27/15 04/02/17 Brinzolamide 1% Ophth Drops [Azopt 1 drops OPTH BID 07/25/16 04/02/17 1% Ophth Drops] Levothyroxine Sodium [Synthroid] 25 mcg PO DAILY 07/25/16 04/02/17 Nitroglycerin [Nitrostat] 0.3 mg SL ONCE PRN 07/25/16 04/02/17 clonazePAM [KlonoPIN] 0.5 mg PO ACHS PRN 01/25/17 04/02/17 Metoprolol Succinate [Toprol Xl] 50 tab PO BID 02/27/17 04/02/17 Prochlorperazine Maleate 10 mg PO Q4HR PRN 03/01/17 04/02/17 [Compazine] Ondansetron HCl [Zofran] 4 mg PO Q6HR PRN 03/23/17 04/02/17 Polyethylene Glycol 3350 [Miralax] 17 mg PO DAILY PRN 03/23/17 04/02/17 Senna [Senokot] 8.6 mg PO DAILY PRN 03/23/17 04/02/17 raNITIdine [Zantac] 75 mg PO BID PRN 03/23/17 04/02/17 - Allergies Allergies/Adverse Reactions: Allergies Allergy/AdvReac Type Severity Reaction Status Date / Time lorazepam [From Ativan] Allergy Intermediate Nausea Verified 07/14/16 14:01 amylase [From Creon] Allergy Edema Verified 07/14/16 14:00 lipase [From Creon] Allergy Edema Verified 07/14/16 14:00 protease [From Creon] Allergy Edema Verified 07/14/16 14:00 ciprofloxacin HCl * AdvReac Intermediate confusion Verified 07/14/16 14:01 [From Cipro] codeine AdvReac Intermediate Cramps Verified 07/14/16 14:01 levofloxacin [From Levaquin] AdvReac Intermediate confusion Verified 07/14/16 14 :01 Sulfa (Sulfonamide AdvReac Intermediate Nausea Verified 07/14/16 14:01 Antibiotics) Review of Systems - Constitutional Constitutional: reports: Fatigue, Weakness, Poor appetite, Weight loss - Eyes Eyes: reports: Vision loss - Ears, Nose & Throat Ears, Nose & Throat: reports: Hearing loss, Hearing aids, Mouth lesions - Cardiovascular Cardiovascular: reports: Irregular heart rate, Other (SOB with transfusion and afterwards) - Respiratory Respiratory: reports: SOB with exertion - Gastrointestinal Gastrointestinal: reports: Nausea (with transfusion and afterwards; none now), Reflux/heartburn (controlled with ranitidine), Early satiety. denies: Constipation - Genitourinary Genitourinary: denies: Incontinence - Musculoskeletal Musculoskeletal: reports: Muscle weakness, Assistive devices (cane) - Integumentary Integumentary: reports: Dryness - Neurological Neurological: reports: General weakness, Headache, Dizziness - Psychiatric Psychiatric: reports: Depression, Anxiety - Endocrine Endocrine: reports: Hypothyroidism - Hematologic/Lymphatic Hematologic/Lymphatic: reports: Anemia (had increased symptoms; f/u labs and transfusion of 2 units;), Recurrent infections (diverticulitis with recent hospitalization) - All Other Systems All Other Systems: reports: Reviewed and negative Physical Exam - Vital Signs Temperature: 36.6 C Pulse Rate: 64 Respiratory Rate: 18 Blood Pressure: 141/81 - Physical Exam General Appearance: positive: No acute distress, Anxious Eyes Bilateral: positive: Normal inspection, Conjunctivae nml, No scleral icterus ENT: positive: No signs of dehydration, Other (posterior last back molar distal to it has in gumline exposed "tooth"; rubbing on tongue; thought was a lesion; about 0.25 cm) Neck: positive: No JVD, Trachea midline. negative: Lymphadenopathy (R), Lymphadenopathy (L) Cardiovascular: positive: Irregular, Systolic murmur Respiratory: positive: Diminished in bases. negative: Wheezes, Rales, Rhonchi Abdomen: positive: Non-tender, Soft, Nml bowel sounds. negative: Distended Skin: positive: Pallor, Dryness Extremities: positive: No pedal edema Neurologic/Psychiatric: positive: Oriented x3, Weakness, Depressed mood/affect Palliative Care - POLST Patient has POLST: Yes POLST Status: DNR, Selective Treatment Pain: No pain Tiredness/Fatigue: Moderate (4-6) Drowsiness/Sedation: Moderate (4-6) Nausea: Moderate (4-6) Depression: Moderate (4-6) Anxiety: Moderate (4-6) Dyspnea: None Anorexia: Moderate (4-6) Sleep: Variable sleep pattern Constipation: No, Comment (patient "prepared" for constipation related to treatment) Feelings of wellbeing/Perceived Quality of Life: Comment (patient perceives current wellbeing 8/10 with 1 being best well being and 10 worst wellbeing) Performance Status: Patient does report significant fatigue, is able to ambulate short distances with cane, is able to attend her own ADLs but needs to pace self. - Palliative Care Discussion: Discussion included follow-up on her previous conversation, Dr. Garcia Did share with him she thought it was a little early to be speaking about a prognosis of 6 months or less, but was willing to support him with a letter as needed. Did discuss with need to establish our speak with a provider who is willing to write prescriptions, at this point in time he is satisfied with where he is at with this. He has completed his MANOJ ST, does have a DPO a, and is willing to wait as the journey unfolds. We did spend time discussing his grief and loss, in the context of his current journey. He is concerned about his daughter, as he lost his other daughter to cancer at age 26, now his son, his , and she is spacing his pending loss. Results - Lab Results Lab results reviewed: Yes Lab and Imaging Results: HGB up to 9.8; no concerns with CMP Impression and Recommendations - Palliative Care Impression: This is an 87-year-old gentleman with MDS and severe pancytopenia, his journey is currently complicated by recent infection with interruption of his second cycle of Vidaza, as well as the loss of his son. He did receive a transfusion over the weekend, with a reaction, also concerned may have been cardiac in nature. He does present with moderate to high symptom burden, including fatigue , anorexia, depression, and some functional decline. Palliative care to continue to provide support both for symptom management and goals of care. Recommendations/Counseling Done: 1.MDS with pancytopenia. Patient at this point in time is continuing with Vidaza, remains concerned about tolerating the side effects, does have his daughter now with him to provide ongoing support. He has had some improvement with his fatigue with recent transfusion, secondary to his extensive cardiac history, may want to weigh benefits and burdens of transfusing earlier. 2. Insomnia. Patient did not tolerate trazodone, side effects included even add a small dose of hangover, patient has had good results with clonidine in the past. Feels he gets more restful sleep with this, counseling regarding other options, patient will continue on his clonidine prescription provided. 3. Depression, this is multifactorial in origin. Including grief and recent loss of his son as well as addressing his own health issues. Counseling related to normalizing current feelings, accessing his current support system, discussed resources but feels has adequate support. 4. Anorexia.Discussed with patient less than ideal interventions for pharmacologic treatment of anorexia. Counseling regarding strategies, does feel like he is doing fairly well given his current circumstances. He also discussed with his transfer hyponatremia, to focus on fluids with calories, versus just water. 5. Mouth lesion. Actually on exam mouth lesion is appears to be bone or tooth eroding through the gumline. It is not red or irritated in nature, the discomfort comes from the tongue rubbing on the hard surface. Patient will continue with normal saline/baking soda rinses and will continue to monitor. 6. Fatigue, this is multifactorial in origin. Patient aware to pace self, with energy conservation, instructed to notify us if worsening of symptoms. 7. Advanced care planning. Continue discussion of goals of care, MANOJ ST and DPO a and place. Will continue to follow patient for support. Time Spent: 60 minutes with greater than 50% of this done in counseling regarding depression , insomnia, follow-up on incident with transfusion reaction, and anticipatory guidance.
== END 2017-04-02 12:07 | disposition home or self-care (01) ==
LOC: PC 12:06
PROVIDERS: ATTEND Nurse Practitioner Adult Health
DX: Z51.5 Encounter for palliative care (principal); D46.9 Myelodysplastic syndrome, unspecified; D61.818 Other pancytopenia; G47.00 Insomnia, unspecified; F32.9 Major depressive disorder, single episode, unspecified; R63.0 Anorexia; R53.83 Other fatigue; Z95.5 Presence of coronary angioplasty implant and graft; F41.9 Anxiety disorder, unspecified; Z79.82 Long term (current) use of aspirin; R06.09 Other forms of dyspnea; M62.81 Muscle weakness (generalized); D64.9 Anemia, unspecified; Z66 Do not resuscitate
CPT/HCPCS: 99215

== ENCOUNTER 2017-04-10 12:25 | Outpatient (CLI) | payer MEDICARE, BC ==
--- NOTE | 2017-04-10 14:43 | CONSULTATION NOTE ---
Palliative Care Follow Up - Referral Referring Provider: Dr. 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 He is currently on his second course of by days, he is tolerating this much better. He has been able to manage the nausea with small frequent meals and use of ondansetron previous to injections. He continues to struggle with fatigue related with grief at the loss of his recent of his son. His daughter is with him presently today, he is having some GERD symptoms, mild constipation, anorexia, and fatigue. He does feel his current quality of life continues to be impacted by both his recent loss and his treatment of his MDS Social History - Living Situation Living arrangement: At home Living Situation: Alone (His daughter Lexi is up staying with him, this is a plan for long-termHe does have many friends who are also quite supportive) Medications/Allergies - Medications Home Medications: Ambulatory Orders Medication Instructions Recorded Confirmed Aspirin 81 mg PO DAILY 02/07/13 04/10/17 Rosuvastatin Calcium [Crestor] 5 mg PO ACHS 03/27/15 04/10/17 Brinzolamide 1% Ophth Drops [Azopt 1 drops OPTH BID 07/25/16 04/10/17 1% Ophth Drops] Levothyroxine Sodium [Synthroid] 25 mcg PO DAILY 07/25/16 04/10/17 Nitroglycerin [Nitrostat] 0.3 mg SL ONCE PRN 07/25/16 04/10/17 clonazePAM [KlonoPIN] 0.5 mg PO ACHS PRN 01/25/17 04/10/17 Metoprolol Succinate [Toprol Xl] 50 tab PO BID 02/27/17 04/10/17 Prochlorperazine Maleate 10 mg PO Q4HR PRN 03/01/17 04/10/17 [Compazine] Ondansetron HCl [Zofran] 4 mg PO Q6HR PRN 03/23/17 04/10/17 Polyethylene Glycol 3350 [Miralax] 17 mg PO DAILY PRN 03/23/17 04/10/17 Senna [Senokot] 17.2 mg PO DAILY PRN 03/23/17 04/10/17 raNITIdine [Zantac] 75 mg PO BID PRN 03/23/17 04/10/17 Cholecalciferol (Vitamin D3) 1,200 units PO DAILY 04/10/17 04/10/17 [Vitamin D3] - Allergies Allergies/Adverse Reactions: Allergies Allergy/AdvReac Type Severity Reaction Status Date / Time lorazepam [From Ativan] Allergy Intermediate Nausea Verified 07/14/16 14:01 amylase [From Creon] Allergy Edema Verified 07/14/16 14:00 lipase [From Creon] Allergy Edema Verified 07/14/16 14:00 protease [From Creon] Allergy Edema Verified 07/14/16 14:00 ciprofloxacin HCl * AdvReac Intermediate confusion Verified 07/14/16 14:01 [From Cipro] codeine AdvReac Intermediate Cramps Verified 07/14/16 14:01 levofloxacin [From Levaquin] AdvReac Intermediate confusion Verified 07/14/16 14 :01 Sulfa (Sulfonamide AdvReac Intermediate Nausea Verified 07/14/16 14:01 Antibiotics) Review of Systems - Constitutional Constitutional: reports: Fatigue, Poor appetite, Weight loss (2 pounds over the week) - Ears, Nose & Throat Ears, Nose & Throat: reports: Hearing loss, Other (reports increase salivation) - Cardiovascular Cardiovascular: reports: Decr. exercise tolerance. denies: Chest pain - Respiratory Respiratory: reports: SOB with exertion. denies: Cough, SOB at rest - Gastrointestinal Gastrointestinal: reports: Constipation (reports difficulty for several days), Nausea (controlled with ondansetron), Reflux/heartburn (worsening), Early satiety - Genitourinary Genitourinary: denies: Incontinence - Musculoskeletal Musculoskeletal: reports: Muscle weakness, Assistive devices (uses cane) - Integumentary Integumentary: reports: Dryness - Neurological Neurological: denies: Dizziness - Psychiatric Psychiatric: reports: Depression, Anxiety - Endocrine Endocrine: reports: Hypothyroidism - Hematologic/Lymphatic Hematologic/Lymphatic: reports: Anemia - All Other Systems All Other Systems: reports: Reviewed and negative Physical Exam - Vital Signs Temperature: 36.5 C Pulse Rate: 64 Respiratory Rate: 18 Blood Pressure: 126/73 - Physical Exam General Appearance: positive: No acute distress Eyes Bilateral: positive: Normal inspection ENT: positive: No signs of dehydration, Oral lesions (right back of gum line small white bone/lesion less than 0.25 cm; gums with more swelling at gumline; no noted bleeding) Neck: positive: Trachea midline Cardiovascular: positive: Irregularly irregular, Systolic murmur Respiratory: positive: Breath sounds nml, Diminished in bases Abdomen: positive: Soft Skin: positive: Pallor, Dryness Extremities: positive: No pedal edema Neurologic/Psychiatric: positive: Oriented x3, Weakness, Depressed mood/affect Palliative Care - POLST Patient has POLST: Yes POLST Status: DNR, Selective Treatment Pain: No pain Tiredness/Fatigue: Moderate (4-6) Drowsiness/Sedation: Moderate (4-6) Nausea: Mild (1-3) Depression: Moderate (4-6) Anxiety: Mild (1-3) Dyspnea: None Anorexia: Moderate (4-6) Sleep: Variable sleep pattern Constipation: Yes, Intermittent constipation Feelings of wellbeing/Perceived Quality of Life: Fair Performance Status: Patient with fatigue and poor activity tolerance, is able to attend her own ADLs. His daughter is driving him to appointments though - Palliative Care Discussion: Patient continues to struggle with the grief and loss of his son, finding it overwhelming at times. He does have support of his daughter and friends and with ports he does reach out as needed. Discontinuing want to explore DWD, there is a prognostic scaling for MDS, will review with oncologist to assist patient in future planning. Continue to provide psychosocial support and available as needed Results - Lab Results Lab results reviewed: Yes Lab and Imaging Results: improved Impression and Recommendations - Palliative Care Impression: This is a patrica 87-year-old gentleman with MDS and severe pancytopenia, his counts have improved and he is at the end of his Vidaza cycle. He continues to present with moderate symptom burden, though the nausea is improved with planning around injections, he continues with fatigue, anorexia, depression, and some functional decline. Palliative care to continue to provide support both for symptom management and goals of care Recommendations/Counseling Done: 1. Constipation. Patient using MiraLAX and only 1 senna daily, did encourage to increase the senna concentrate to 2 tabs up to twice daily. Most likely induced by use of ondansetron. Counseling regarding "mush" of MiraLAX and "push " as use of senna. 2. Insomnia. Patient does have clonazepam using intermittently every 2-3 days. Discussed using 10,000 Lux light therapy, 30 minutes in a.m. counseling regarding proper use and impact for sleep, depression, and fatigue related to circadian rhythms. 3. Depression, this is multifactorial in origin. Including grief and recent loss of son as well as addressing his own health issues. Reviewed current resources. 4. Anorexia. Patient does present with some weight loss, is doing well with fluid intake, again encouraged to focus on high-calorie fluids. 5. Mouth lesion. Gumline does appear actually somewhat inflamed, reviewed proper oral care and rinsing with saline/baking soda for prevention of infection. Lesion at left back gumline does not appear to have changed at this time, no improvement or worsening per patient's perception. 6. Advanced care planning. Will continue to help facilitate patient's desire to follow-up regarding with dignity, will plug into prognostic risk layers for MDS and follow-up with oncologist. Patient is anxious regarding timing of process. May go ahead and initiate contact to start process if appropriate Time Spent: 30 minutes with gated 50% of this done in counseling regarding symptom management and anticipatory guidance
== END 2017-04-10 12:26 | disposition home or self-care (01) ==
LOC: PC 12:25
PROVIDERS: ATTEND Nurse Practitioner Adult Health
DX: Z51.5 Encounter for palliative care (principal); K59.00 Constipation, unspecified; G47.00 Insomnia, unspecified; F32.9 Major depressive disorder, single episode, unspecified; R63.0 Anorexia; K13.70 Unspecified lesions of oral mucosa; D46.9 Myelodysplastic syndrome, unspecified; D61.818 Other pancytopenia; R11.0 Nausea; Z79.82 Long term (current) use of aspirin; R06.09 Other forms of dyspnea; F41.9 Anxiety disorder, unspecified; Z79.899 Other long term (current) drug therapy; Z66 Do not resuscitate
CPT/HCPCS: 99214

== ENCOUNTER 2017-05-25 08:00 | Outpatient (CLI) | payer MEDICARE, BC | END 2017-05-25 08:01 | disposition home or self-care (01) | LOC: LAB.R 08:00 | PROVIDERS: ATTEND Internal Medicine | DX: R19.7 Diarrhea, unspecified (principal) | CPT/HCPCS: 87493 ==

== ENCOUNTER 2017-06-16 20:09 | Outpatient (CLI) | payer MEDICARE, BC | END 2017-06-16 20:10 | disposition short-term general hospital (02) | LOC: EMS 20:09 | PROVIDERS: ATTEND Surgery | DX: R11.0 Nausea (principal); R14.0 Abdominal distension (gaseous); R19.7 Diarrhea, unspecified; R53.1 Weakness | CPT/HCPCS: A0425; A0429 ==

== ENCOUNTER 2017-06-19 08:00 | Outpatient (CLI) | payer MEDICARE, BC | END 2017-06-19 08:01 | disposition home or self-care (01) | LOC: LAB.R 08:00 | PROVIDERS: ATTEND Internal Medicine | DX: R19.7 Diarrhea, unspecified (principal) | CPT/HCPCS: 83630; 87045; 87046; 87177; 87209; 87493 ==

== ENCOUNTER 2017-06-21 16:10 | Outpatient (CLI) | payer MEDICARE, BC ==
[2017-06-21 18:19] LABS: BILIRUBIN,URINE NEGATIVE (NEGATIVE); GLUCOSE, URINE (UA) NEGATIVE (NEGATIVE); KETONES,URINE (UA) NEGATIVE (NEGATIVE); LEUKOCYTE ESTERASE, URINE NEGATIVE (NEGATIVE); NITRITE,URINE NEGATIVE (NEGATIVE); OCCULT BLOOD,URINE NEGATIVE (NEGATIVE); PH,URINE 6.5 PH (5.0-7.5); PROTEIN,URINE NEGATIVE (NEGATIVE); UROBILINOGEN,URINE 0.2 (NORMAL) E.U./dL (NORMAL)
[2017-06-21 18:20] LABS: CLARITY,URINE CLEAR (CLEAR)
== END 2017-06-21 16:11 | disposition home or self-care (01) ==
LOC: LAB.F 16:10
PROVIDERS: ATTEND Internal Medicine
DX: R35.0 Frequency of micturition (principal)
CPT/HCPCS: 81001; 81003; 87086

== ENCOUNTER 2017-07-16 09:29 | Outpatient (CLI) | payer MEDICARE, BC ==
[2017-07-16 18:51] LABS: BUN - BLOOD UREA NITROGEN 20 mg/dL (6-20); CALCIUM 8.6 mg/dL (8.5-10.3); CARBON DIOXIDE - CO2 25 mmol/L (21-32); CHLORIDE 105 mmol/L (101-111); CHOL/HDL RATIO 2.9 (<5.0); CHOLESTEROL 152 mg/dL; CREATININE 1.2 mg/dL (0.6-1.2); GFR - MDRD 57 (>89); GLUCOSE 91 mg/dL (70-100); HDL CHOLESTEROL 52 mg/dL; LDL CHOLESTEROL,CALCULATED 87 mg/dL; LDL/HDL RATIO 1.7 (<3.6); SODIUM 134 mmol/L (135-145); VLDL CHOLESTEROL 13 mg/dL
== END 2017-07-16 09:30 | disposition home or self-care (01) ==
LOC: LAB.F 09:29
PROVIDERS: ATTEND Internal Medicine
DX: I25.9 Chronic ischemic heart disease, unspecified (principal); K57.92 Diverticulitis of intestine, part unspecified, without perforation or abscess without bleeding; D46.9 Myelodysplastic syndrome, unspecified; D61.818 Other pancytopenia
CPT/HCPCS: 36415; 80048; 80061; 83721; 84443

== ENCOUNTER 2017-09-05 11:35 | Emergency (ER) | payer MEDICARE, BC ==
--- NOTE | 2017-09-05 12:07 | ED Physician Documentation ---
PD HPI ALTERED MENTAL STATUS - Stated complaint Stated Complaint: WEAKNESS/DIZZY - Chief complaint Chief Complaint: Cardiac - History obtained from History obtained from: Patient - History of Present Illness Timing - onset: How many days ago (3-4) Timing - duration: Days (3-4) Timing - details: Gradual onset, Still present Quality / character: Other (feeling of general weakness, somewhat more noted on left arm.) Associated symptoms: General weakness, Other (upper abd pain and some soft/ loose stools for 3 days.). No: Fever, Headache, Dyspnea, Cough, NVD, Focal weakness Contributing factors: No: New medication, Recent med change, Recent illness Basline status: Alert and oriented X 3, Ambulatory Treatment [employer]: Other ([place] [facility] [place] Similar symptoms before: Has not had sx before Recently seen: Clinic ([place] [facility] [place] Review of Systems Constitutional: denies: Fever, Chills Nose: denies: Rhinorrhea / runny nose, Congestion Throat: denies: Sore throat Cardiac: denies: Chest pain / pressure, Palpitations Respiratory: reports: Cough (mild chronic). denies: Dyspnea, Wheezing GI: reports: Abdominal Pain (for past 3-4 days). denies: Nausea, Vomiting, Diarrhea : denies: Dysuria Skin: denies: Rash, Lesions Neurologic: reports: Generalized weakness, Other (vertigo positional for several days). denies: Focal weakness, Numbness, Confused, Altered mental status, Headache Psychiatric: denies: Anxiety, Insomnia Immunocompromised: reports: Immunocompromised PD PAST MEDICAL HISTORY - Past Medical History Cardiovascular: Coronary artery disease, Angina, Atrial fibrillation, Arrhythmia Respiratory: Pneumonia Endocrine/Autoimmune: HyPOthyroidism GI: GERD, Ulcers, Hemorrhoids, Diverticulitis : Benign prostate hypertrophy, Frequency HEENT: Glaucoma, Chronic hearing loss Psych: Depression Musculoskeletal: Osteoarthritis Derm: Rosacea - Past Surgical History Past Surgical History: Yes General: Cholecystectomy, Appendectomy, Colonoscopy Ortho: Arthroscopic surgery Cardiovascular: CABG, Coronary stent HEENT: Cataracts, Tonsil/Adenoidectomy - Present Medications Home Medications: Ambulatory Orders Medication Instructions Recorded Confirmed Aspirin 81 mg PO DAILY 02/07/13 08/14/17 Brinzolamide 1% Ophth Drops [Azopt 1 drops OPTH BID 07/25/16 08/14/17 1% Ophth Drops] Levothyroxine Sodium [Synthroid] 25 mcg PO DAILY 07/25/16 08/14/17 Nitroglycerin [Nitrostat] 0.3 mg SL ONCE PRN 07/25/16 08/14/17 clonazePAM [KlonoPIN] 0.5 mg PO ACHS PRN 01/25/17 08/14/17 Metoprolol Succinate [Toprol Xl] 50 tab PO BID 02/27/17 08/14/17 Prochlorperazine Maleate 10 mg PO Q4HR PRN 03/01/17 08/14/17 [Compazine] Ondansetron HCl [Zofran] 4 mg PO Q4H PRN 03/23/17 08/14/17 Polyethylene Glycol 3350 [Miralax] 17 mg PO DAILY PRN 03/23/17 08/14/17 Senna [Senokot] 17.2 mg PO DAILY PRN 03/23/17 08/14/17 raNITIdine [Zantac] 75 mg PO BID PRN 03/23/17 08/14/17 Cholecalciferol (Vitamin D3) 1,200 units PO DAILY 04/10/17 08/14/17 [Vitamin D3] Lidocaine Viscous 2% [Xylocaine 5 ml PO Q4H PRN #1 bottle 09/05/17 Viscous 2%] Meclizine [Antivert] 25 mg PO Q6H PRN #30 tablet 09/05/17 Pantoprazole [Protonix] 40 mg PO DAILY #30 tablet 09/05/17 - Allergies Allergies/Adverse Reactions: Allergies Allergy/AdvReac Type Severity Reaction Status Date / Time lorazepam [From Ativan] Allergy Intermediate Nausea Verified 09/05/17 11:48 amylase [From Creon] Allergy Edema Verified 09/05/17 11:48 lipase [From Creon] Allergy Edema Verified 09/05/17 11:48 protease [From Creon] Allergy Edema Verified 09/05/17 11:48 ciprofloxacin HCl * AdvReac Intermediate confusion Verified 09/05/17 11:48 [From Cipro] codeine AdvReac Intermediate Cramps Verified 09/05/17 11:48 levofloxacin [From Levaquin] AdvReac Intermediate confusion Verified 09/05/17 11 :48 Sulfa (Sulfonamide AdvReac Intermediate Nausea Verified 09/05/17 11:48 Antibiotics) - Social History Does the pt smoke?: No Smoking Status: Never smoker Does the pt drink ETOH?: No Does the pt have substance abuse?: No - Family History Family history: reports: Non contributory - Immunizations Immunizations are current?: Yes - POLST Patient has POLST: Yes PD ED PE NORMAL - Vitals Vital signs reviewed: Yes - General General: Alert and oriented X 3, Well developed/nourished - HEENT HEENT: Moist mucous membranes, Pharynx benign - Neck Neck: Supple, no meningeal sign, No adenopathy - Cardiac Cardiac: RRR, No murmur - Respiratory Respiratory: Clear bilaterally - Abdomen Abdomen: Soft, Non distended, Other (tender upper mid to left abd. ) - Back Back: No CVA TTP - Derm Derm: Normal color, Warm and dry - Extremities Extremities: No deformity, No tenderness to palpate, Normal ROM s pain, No edema , No calf tenderness / cord - Neuro Neuro: Alert and oriented X 3, No motor deficit, Normal speech Eye Opening: Spontaneous Motor: Obeys Commands Verbal: Oriented GCS Score: 15 Results - Vitals Vitals: Vital Signs - 24 hr 09/05/17 09/05/17 14:33 15:25 Heart Rate 69 68 Respiratory 14 17 Rate Blood Pressure 117/74 119/74 O2 Saturation 98 97 Oxygen O2 Source Room air - Labs Labs: Laboratory Tests 09/05/17 09/05/17 09/05/17 10:55 10:55 10:55 Troponin I < 0.04 B-Natriuretic Peptide 176 H Lipase 30 - Rads (name of study) abd/pelvic CT Radiology: Prelim report reviewed (no acute process.) head CT Radiology: Prelim report reviewed (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 No acute findings.) PD MEDICAL DECISION MAKING - ED course Complexity details: considered differential (veertigo sounds peripheral and only old CVA seen on CT. Abd pain sounds gastric but with some loose stools. CT did not show diverticulitis (though diverticula). ), d/w patient - Sepsis Event Vital Signs: Vital Signs - 24 hr 09/05/17 09/05/17 14:33 15:25 Heart Rate 69 68 Respiratory 14 17 Rate Blood Pressure 117/74 119/74 O2 Saturation 98 97 Oxygen O2 Source Room air Departure - Departure Disposition: 01 Home, Self Care Clinical Impression: Vertigo, Upper abdominal pain, Generalized weakness Condition: Stable Record reviewed to determine appropriate education?: Yes Instructions: ED Gastritis, ED Vertigo Unspecified Follow-Up: Evens Aguilar MD [Primary Care Provider] - Prescriptions: Lidocaine Viscous 2% [Xylocaine Viscous 2%] 5 ml PO Q4H PRN #1 bottle PRN Reason: Pain Meclizine [Antivert] 25 mg PO Q6H PRN #30 tablet PRN Reason: Vertigo Pantoprazole [Protonix] 40 mg PO DAILY #30 tablet Comments: Use pantoprazole daily to reduce stomach acids. He can add antacid shows as Mylanta or Maalox to that if needed for discomfort and add lidocaine if needed for discomfort as well. That hopefully will help your upper stomach pain. Your other blood tests appear pretty normal without any signs of pancreas irritation and basic blood count was good as well. The dizziness would come from in her ear and can be treated with meclizine every 6 hours if needed for the symptoms. Follow-up with your primary care in the next few days, call for an appointment. Your CT scan of the head did not show any acute problem. There is evidence of an old small stroke. These can often go undetected clinically. No signs of new stroke, bleeding, swelling, tumors. Discharge Date/Time: 09/05/17 15:27
[2017-09-05] MEDS ORDERED: SODIUM CHLORIDE 0.9% 1,000 ML IV ONE (12:31)
[2017-09-05] MEDS ORDERED: MAG HYDROX/AL HYDROX/SIMETH 30 ML UDC PO STA (12:46)
[2017-09-05] MEDS ORDERED: IOPAMIDOL-300 100 ML VIAL ONE (13:10)
[2017-09-05] MEDS ORDERED: IOPAMIDOL-300 100 ML VIAL IVP ONE (13:42)
--- NOTE | 2017-09-05 13:57 | CT Report ---
Procedure Date: 09/05/2017 Accession Number: [id number] / [id number] Procedure: CT - Head W/O CPT Code: FULL RESULT: EXAM: CT HEAD WITHOUT IV CONTRAST EXAM DATE: 09/05/2017. CLINICAL HISTORY: Vertigo. Left arm weakness. COMPARISON: None. TECHNIQUE: Multiaxial CT images were obtained from the foramen magnum to the vertex. Reformats: Sagittal and coronal. IV contrast: None. In accordance with CT protocol optimization, one or more of the following dose reduction techniques were utilized for this exam: automated exposure control, adjustment of mA and/or KV based on patient size, or use of iterative reconstructive technique. FINDINGS: Parenchyma: The ventricles and sulci are enlarged, within the broad range of normal for the age group. Mild patchy decreased attenuation of cerebral white matter consistent with small vessel ischemic changes, common in the age group. 16 x 14 x 28 mm region of encephalomalacia in the anterior left centrum semiovale, extending into the superior anterior limb of the left internal capsule consistent with an old infarct. No intraparenchymal hemorrhage. No evidence of mass, midline shift, or CT findings of infarction. Sr-white differentiation is distinct. Extraaxial Spaces: No hemorrhage or mass demonstrated. Sinuses and Orbits: Included sinuses are clear. The mastoids are normally aerated. Bones: No evidence of fracture or calvarial defect. Soft tissues: Prior cataract surgery. IMPRESSION: No acute abnormality. 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 Cerebral atrophy and small vessel ischemic changes, within the broad range of normal for the age group. RADIA
--- NOTE | 2017-09-05 14:06 | CT Report ---
Procedure Date: 09/05/2017 Accession Number: [id number] / [id number] Procedure: CT - Abdomen/Pelvis W/ CPT Code: FULL RESULT: EXAM: CT ABDOMEN AND PELVIS WITH IV CONTRAST EXAM DATE: 09/05/2017. CLINICAL HISTORY: Upper abdominal pain and loose stools. COMPARISONS: 03/27/2015. TECHNIQUE: Routine helical CT imaging was performed through the abdomen and pelvis. IV contrast: 100 cc of Isovue-300. Enteric contrast: None. Reconstructions: Coronal and sagittal. In accordance with CT protocol optimization, one or more of the following dose reduction techniques were utilized for this exam: automated exposure control, adjustment of mA and/or KV based on patient size, or use of iterative reconstructive technique. FINDINGS: Lung Bases: The lungs are clear. No pleural or pericardial effusion. Prior sternotomy. Atherosclerosis of the aorta and coronary arteries. Liver: Normal. No masses. Gallbladder/Bile Ducts: Cholecystectomy. No bile duct dilatation. Spleen: Normal. Pancreas: Normal. Adrenal Glands: Normal. Kidneys: Normal. No masses or hydronephrosis. Peritoneal Cavity/Bowel: Mild distention of proximal jejunum with gas, no focal transition zone. Multiple diverticula of the descending and sigmoid colon. No diverticulitis or other acute inflammatory process. No adenopathy. No fluid collections or free air. Pelvic Organs: The urinary bladder appears normal. No adenopathy. No fluid collections. Vasculature: Extensive atherosclerosis. Ectasia of the distal abdominal aorta just above the bifurcation is unchanged. Bones: Mild degenerative changes of the spine. Multiple sternal wire sutures. IMPRESSION: Mild ileus of the proximal jejunum. Status post cholecystectomy. Diverticulosis of the descending and sigmoid colon, no sign of diverticulitis or other acute intra-abdominal inflammatory process. Extensive atherosclerosis, including coronary arteries. Postsurgical findings consistent with coronary artery bypass surgery. There appear to be several stents in coronary arteries. Distal abdominal aortic ectasia is unchanged. RADIA
[2017-09-05] MEDS ORDERED: PANTOPRAZOLE 40 MG TABLET PO STA (14:57)
[2017-09-05] MEDS ORDERED: MECLIZINE 12.5 MG TABLET PO STA (14:57)
[2017-09-05 15:27] VITALS: BP 119/74
--- NOTE | 2017-09-06 09:28 | ED Physician Documentation ---
ED Addendum - Addendum Addendum: 09/06/17 09:28 chart accessed to assist pharm question - pharm wants to know if lido is swish and spit or swallow PO - reviewed chart and seems lido was for upper abd pain in addition to PPI and antacid - so presume to be swallowed
== END 2017-09-05 15:27 | disposition home or self-care (01) ==
LOC: ED 11:35
DX: R42 Dizziness and giddiness (principal); R10.10 Upper abdominal pain, unspecified; R10.812 Left upper quadrant abdominal tenderness; R53.1 Weakness; R19.5 Other fecal abnormalities; K57.30 Diverticulosis of large intestine without perforation or abscess without bleeding; D46.9 Myelodysplastic syndrome, unspecified; I25.119 Atherosclerotic heart disease of native coronary artery with unspecified angina pectoris; I48.91 Unspecified atrial fibrillation; K21.9 Gastro-esophageal reflux disease without esophagitis; Z87.11 Personal history of peptic ulcer disease; Z95.1 Presence of aortocoronary bypass graft; Z95.5 Presence of coronary angioplasty implant and graft; Z90.49 Acquired absence of other specified parts of digestive tract; Z86.73 Personal history of transient ischemic attack (TIA), and cerebral infarction without residual deficits
CPT/HCPCS: 70450; 74177; 83690; 83880; 84484; 93005; 99284

== ENCOUNTER 2017-10-04 11:05 | Outpatient (CLI) | payer MEDICARE, BC ==
[2017-10-04 17:26] LABS: EOSINOPHILS # (AUTO) 0.1 10^3/uL (0.0-0.7); EOSINOPHILS % (AUTO) 2.2 %; HGB - HEMOGLOBIN 12.6 g/dL (14.0-18.0); LYMPHOCYTES # (AUTO) 0.7 10^3/uL (1.5-3.5); LYMPHOCYTES % (AUTO) 18.7 %; MEAN CORPUSCULAR HEMOGLOBIN 31.5 pg (27.0-31.0); MEAN CORPUSCULAR HGB CONC 33.9 g/dL (32.0-36.0); MEAN CORPUSCULAR VOLUME 92.9 fL (80.0-94.0); MEAN PLATELET VOLUME 8.1 fL (7.4-11.4); MONOCYTES # (AUTO) 0.2 10^3/uL (0.0-1.0); NEUTROPHILS # (AUTO) 2.8 10^3/uL (1.5-6.6); NEUTROPHILS % (AUTO) 72.1 %; PLT - PLATELET COUNT 142 10^3/uL (130-450); RED BLOOD COUNT 3.99 10^6/uL (4.70-6.10); RED CELL DISTRIBUTION WIDTH 15.9 % (12.0-15.0); WHITE BLOOD COUNT 3.8 x10^3/uL (4.8-10.8)
[2017-10-04 18:01] LABS: ALBUMIN 3.9 g/dL (3.2-5.5); ALBUMIN/GLOBULIN RATIO 1.4 (1.0-2.2); BILIRUBIN,TOTAL 0.9 mg/dL (0.2-1.0); CALCIUM 8.6 mg/dL (8.5-10.3); CREATININE 1.1 mg/dL (0.6-1.2); TOTAL PROTEIN 6.7 g/dL (6.7-8.2)
== END 2017-10-04 11:06 | disposition home or self-care (01) ==
LOC: LAB.F 11:05
PROVIDERS: ATTEND Internal Medicine
DX: R10.9 Unspecified abdominal pain (principal); R19.7 Diarrhea, unspecified
CPT/HCPCS: 36415; 80053; 85025

== ENCOUNTER 2017-10-05 08:00 | Outpatient (CLI) | payer MEDICARE, BC ==
[2017-10-05 10:34] LABS: H. PYLORIS ANTIGEN STL NEGATIVE (Negative)
== END 2017-10-05 08:01 | disposition home or self-care (01) ==
LOC: LAB.R 08:00
PROVIDERS: ATTEND Internal Medicine
DX: R10.9 Unspecified abdominal pain (principal); R19.7 Diarrhea, unspecified
CPT/HCPCS: 87045; 87046; 87338

== ENCOUNTER 2017-11-30 18:40 | Emergency (ER) | payer MEDICARE, BC ==
[2017-11-30 19:45] LABS: BASOPHILS % (AUTO) 0.9 %; EOSINOPHILS # (AUTO) 0.2 10^3/uL (0.0-0.7); EOSINOPHILS % (AUTO) 4.8 %; HGB - HEMOGLOBIN 12.5 g/dL (14.0-18.0); LYMPHOCYTES # (AUTO) 0.9 10^3/uL (1.5-3.5); LYMPHOCYTES % (AUTO) 21.8 %; MEAN CORPUSCULAR HGB CONC 33.6 g/dL (32.0-36.0); MEAN CORPUSCULAR VOLUME 92.3 fL (80.0-94.0); MEAN PLATELET VOLUME 7.8 fL (7.4-11.4); MONOCYTES # (AUTO) 0.2 10^3/uL (0.0-1.0); MONOCYTES % (AUTO) 4.5 %; NEUTROPHILS # (AUTO) 2.7 10^3/uL (1.5-6.6); PLT - PLATELET COUNT 125 10^3/uL (130-450); RED BLOOD COUNT 4.04 10^6/uL (4.70-6.10); RED CELL DISTRIBUTION WIDTH 15.6 % (12.0-15.0); WHITE BLOOD COUNT 3.9 x10^3/uL (4.8-10.8)
[2017-11-30] MEDS ORDERED: SODIUM CHLORIDE 0.9% 1,000 ML IV ONE (19:47)
[2017-11-30] MEDS ORDERED: HYDROmorphone 1 MG/ML CARPUJECT IVP STA (19:47)
[2017-11-30 19:58] LABS: ALBUMIN 3.8 g/dL (3.2-5.5); ALBUMIN/GLOBULIN RATIO 1.3 (1.0-2.2); BILIRUBIN,TOTAL 0.5 mg/dL (0.2-1.0); CALCIUM 8.6 mg/dL (8.5-10.3); CREATININE 1.1 mg/dL (0.6-1.2); TOTAL PROTEIN 6.7 g/dL (6.7-8.2)
[2017-11-30] MEDS ORDERED: ONDANSETRON 4 MG/2 ML VIAL IVP STA (20:00)
[2017-11-30] MEDS ORDERED: IOPAMIDOL-300 100 ML VIAL ONE (20:17)
[2017-11-30] MEDS ORDERED: IOPAMIDOL-300 100 ML VIAL IVP ONE (20:30)
[2017-11-30 21:06] LABS: BILIRUBIN,URINE NEGATIVE (NEGATIVE); GLUCOSE, URINE (UA) NEGATIVE (NEGATIVE); KETONES,URINE (UA) NEGATIVE (NEGATIVE); LEUKOCYTE ESTERASE, URINE NEGATIVE (NEGATIVE); NITRITE,URINE NEGATIVE (NEGATIVE); OCCULT BLOOD,URINE NEGATIVE (NEGATIVE); PH,URINE 5.5 PH (5.0-7.5); PROTEIN,URINE NEGATIVE (NEGATIVE); UROBILINOGEN,URINE 0.2 (NORMAL) E.U./dL (NORMAL)
--- NOTE | 2017-11-30 21:06 | CT Report ---
Reason: R abd pain Procedure Date: 11/30/2017 Accession Number: [id number] / [id number] Procedure: CT - Abdomen/Pelvis W/ CPT Code: FULL RESULT: EXAM: CT ABDOMEN AND PELVIS EXAM DATE: 11/30/2017 08:42 PM. CLINICAL HISTORY: R abd pain. COMPARISONS: 09/05/2017. TECHNIQUE: Routine helical CT imaging was performed through the abdomen and pelvis. IV contrast: ISOVUE 300 100mL. Enteric contrast: No. Reconstructions: Coronal and sagittal. In accordance with CT protocol optimization, one or more of the following dose reduction techniques were utilized for this exam: automated exposure control, adjustment of mA and/or KV based on patient size, or use of iterative reconstructive technique. FINDINGS: Lung Bases: Mild dependent reticulation in the lung bases. Liver: Surgical changes from left hepatectomy. No focal lesion. Gallbladder/Bile Ducts: Gallbladder is surgically absent. No bile duct dilation. Spleen: Normal. Pancreas: Normal. Adrenal Glands: Normal. Kidneys: No hydronephrosis. Peritoneal Cavity/Bowel: Mild distention of multiple small bowel loops without evidence of obstruction.. There is extensive colonic diverticulosis without acute inflammatory changes. The appendix is not identified, as before. No inflammation adjacent to the cecum. No free fluid, free air or adenopathy. Pelvic Organs: Mildly distended urinary bladder without wall thickening. Mildly enlarged prostate gland. Vasculature: Atherosclerosis. 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 Bones: No significant abnormality. Other: None. IMPRESSION: 1. No acute abnormality. 2. Extensive diverticulosis without evidence of acute diverticulitis. 3. Surgical changes from right hepatectomy. RADIA
--- NOTE | 2017-11-30 21:14 | ED Physician Documentation ---
PD HPI ABD PAIN - Stated complaint Stated Complaint: ABD PX - Chief complaint Chief Complaint: Abd Pain - History obtained from History obtained from: Patient, Family - History of Present Illness Timing - onset: How many days ago (10) Timing - duration: Days (10) Timing - details: Gradual onset Pain level max: 8 Pain level now: 8 Quality: Aching, Pain Location: RUQ Radiation: Other (non-radiating) Improved by: Other (nothing) Worsened by: Other (nothing) Associated symptoms: No: Fever, Nausea, Vomiting, Hematemesis, Diarrhea, Constipation, Melena, Hematochezia, Dysuria, Hematuria, Chest pain, Dizzy Similar symptoms before: Has not had sx before Recently seen: Not recently seen Review of Systems Ten Systems: 10 systems reviewed and negative Constitutional: denies: Fever, Chills Ears: denies: Ear pain Nose: denies: Rhinorrhea / runny nose, Congestion Throat: denies: Sore throat Cardiac: denies: Chest pain / pressure Respiratory: denies: Cough GI: denies: Nausea, Vomiting, Hematemesis, Bloody / black stool Skin: denies: Rash Musculoskeletal: denies: Neck pain, Back pain Neurologic: denies: Focal weakness, Numbness, Headache PD PAST MEDICAL HISTORY - Past Medical History Past Medical History: Yes Cardiovascular: Coronary artery disease, Angina, Atrial fibrillation, Arrhythmia Respiratory: Pneumonia Endocrine/Autoimmune: HyPOthyroidism GI: GERD, Ulcers, Hemorrhoids, Diverticulitis : Benign prostate hypertrophy, Frequency HEENT: Glaucoma, Chronic hearing loss Psych: Depression Musculoskeletal: Osteoarthritis Derm: Rosacea Other Past Medical History: MDS (blood cancer) - Past Surgical History Past Surgical History: Yes General: Cholecystectomy, Appendectomy, Colonoscopy Ortho: Arthroscopic surgery Cardiovascular: CABG, Coronary stent HEENT: Cataracts, Tonsil/Adenoidectomy - Present Medications Home Medications: Ambulatory Orders Medication Instructions Recorded Confirmed Aspirin 81 mg PO DAILY 02/07/13 11/13/17 Brinzolamide 1% Ophth Drops [Azopt 1 drops OPTH BID 07/25/16 11/13/17 1% Ophth Drops] Levothyroxine Sodium [Synthroid] 25 mcg PO DAILY 07/25/16 11/13/17 Nitroglycerin [Nitrostat] 0.3 mg SL ONCE PRN 07/25/16 11/13/17 clonazePAM [KlonoPIN] 0.5 mg PO ACHS PRN 01/25/17 11/13/17 Metoprolol Succinate [Toprol Xl] 50 tab PO BID 02/27/17 11/13/17 Ondansetron HCl [Zofran] 4 mg PO Q4H PRN 03/23/17 11/13/17 Hydrocodone/Acetaminophen 1 - 2 each PO Q6H PRN #14 tablet 11/30/17 [Hydrocodon-Acetaminophen 5-325] Multivitamin [Multiple Vitamins] 1 each PO 11/30/17 Rosuvastatin Calcium [Crestor] 5 mg PO 11/30/17 Sucralfate [Carafate] 1 gm PO ACHS #60 tablet 11/30/17 - Allergies Allergies/Adverse Reactions: Allergies Allergy/AdvReac Type Severity Reaction Status Date / Time lorazepam [From Ativan] Allergy Intermediate Nausea Verified 11/30/17 19:36 amylase [From Creon] Allergy Edema Verified 11/30/17 19:36 lipase [From Creon] Allergy Edema Verified 11/30/17 19:36 protease [From Creon] Allergy Edema Verified 11/30/17 19:36 ciprofloxacin HCl * AdvReac Intermediate confusion Verified 11/30/17 19:36 [From Cipro] codeine AdvReac Intermediate Cramps Verified 11/30/17 19:36 levofloxacin [From Levaquin] AdvReac Intermediate confusion Verified 11/30/17 19:36 Sulfa (Sulfonamide AdvReac Intermediate Nausea Verified 11/30/17 19:36 Antibiotics) - Social History Does the pt smoke?: No Smoking Status: Former smoker Does the pt drink ETOH?: No Does the pt have substance abuse?: No - Immunizations Immunizations are current?: Yes - POLST Patient has POLST: Yes PD ED PE NORMAL - Vitals Vital signs reviewed: Yes - General General: Alert and oriented X 3, No acute distress - HEENT HEENT: Moist mucous membranes - Neck Neck: Supple, no meningeal sign - Cardiac Cardiac: RRR - Respiratory Respiratory: No respiratory distress, Clear bilaterally - Abdomen Abdomen: Soft, Non distended, Other (Tender palpation right upper quadrant. No peritoneal signs) - Back Back: No spinal TTP - Derm Derm: Warm and dry - Extremities Extremities: No edema - Neuro Neuro: Alert and oriented X 3 Results - Vitals Vitals: Vital Signs - 24 hr 11/30/17 11/30/17 11/30/17 18:45 20:09 21:51 Temperature 36 C L Heart Rate 72 71 71 Respiratory 18 15 12 Rate Blood Pressure 168/84 H 160/79 H 137/70 H O2 Saturation 100 99 98 Oxygen O2 Source Room air - Labs Labs: Laboratory Tests 11/30/17 11/30/17 11/30/17 19:30 19:30 20:45 WBC 3.9 L RBC 4.04 L Hgb 12.5 L Hct 37.3 L MCV 92.3 MCH 31.0 MCHC 33.6 RDW 15.6 H Plt Count 125 L MPV 7.8 Neut # (Auto) 2.7 Lymph # (Auto) 0.9 L [place] # (Auto) 0.2 Eos # (Auto) 0.2 Baso # (Auto) 0.0 Absolute Nucleated RBC 0.01 Nucleated RBC % 0.2 Sodium 134 L Potassium 4.2 Chloride 104 Carbon Dioxide 23 Anion Gap 7.0 BUN 24 H Creatinine 1.1 Estimated GFR (MDRD) 63 L Glucose 97 Calcium 8.6 Total Bilirubin 0.5 AST 18 ALT 18 Alkaline Phosphatase 91 Total Protein 6.7 Albumin 3.8 Globulin 2.9 Albumin/Globulin Ratio 1.3 Lipase 35 Urine Color YELLOW Urine Clarity CLEAR Urine pH 5.5 Ur Specific [place] <=1.005 Urine Protein NEGATIVE Urine Glucose (UA) NEGATIVE Urine Ketones NEGATIVE Urine Occult Blood NEGATIVE Urine Nitrite NEGATIVE Urine Bilirubin NEGATIVE Urine Urobilinogen 0.2 (NORMAL) Ur Leukocyte Esterase NEGATIVE Ur Microscopic Review NOT INDICATED Urine Culture Comments NOT INDICATED - Rads (name of study) CT abdomen and pelvis Radiology: Prelim report reviewed, EMP read contemporaneously, See rad report (No acute abnormality. Extensive diverticulosis without acute diverticulitis. Surgical changes from right hepatectomy) PD MEDICAL DECISION MAKING - ED course Complexity details: reviewed results, re-evaluated patient, considered differential, d/w patient ED course: Patient is an 87-year-old male with right upper quadrant abdominal pain. Does have a history of ulcers and upon further history states that he saw his PCP 2 days ago and they were going to increase his omeprazole to twice a day as they were concerned he was developing another ulcer causing his abdominal pain. There are no acute laboratory abnormalities or findings on CT. He states he cannot tolerate a GI cocktail because it makes him gag. We will add Carafate and have him increase his omeprazole to twice a day and follow-up with his doctor. Abdomen is soft, nontender nondistended. No evidence of perforation. Patient counseled regarding signs and symptoms for which I believe and urgent re-evaluation would be necessary. Patient with good understanding of and agreement to plan and is comfortable going home at this time This document was made in part using voice recognition software. While efforts are made to proofread this document, sound alike and grammatical errors may occur. Departure - Departure Disposition: 01 Home, Self Care Clinical Impression: Abdominal pain Qualifiers: Abdominal location: right upper quadrant Qualified Code(s): R10.11 - Right upper quadrant pain Condition: Good Instructions: ED Abdominal Pain Unkn Cause, ED PUD Vs Gastritis Follow-Up: Evens Aguilar MD [Primary Care Provider] - Within 1 week Prescriptions: Hydrocodone/Acetaminophen [Hydrocodon-Acetaminophen 5-325] 1 - 2 each PO Q6H PRN #14 tablet PRN Reason: pain Sucralfate [Carafate] 1 gm PO ACHS #60 tablet Comments: Continue your increased dose of omeprazole at home. Add the Carafate. Return if you worsen. Do not drink alcohol or drive while on narcotic pain medicine. Note that many narcotic pain relievers also contain tylenol/acetaminophen. Please ensure that your total dose of acetaminophen from all sources does not exceed 3 grams (3000mg) per day. You may constipated on this medication, take a stool softener such as "Colace" twice a day while you are on it. Also recommend a [id number]-lyr-[id number] laxative such as senna or MiraLAX any day that you do not have a bowel movement. If you received narcotic pain medication in the emergency department, do not drive or operate machinery for the next 24 hours. Discharge Date/Time: 11/30/17 21:52
[2017-11-30 21:19] LABS: CLARITY,URINE CLEAR (CLEAR)
[2017-11-30] MEDS ORDERED: HYDROcod/ACETAM 5/325 MG TABLET PO STA (21:38)
[2017-11-30 21:52] VITALS: BP 137/70
== END 2017-11-30 21:52 | disposition home or self-care (01) ==
LOC: ED 18:40
DX: R10.11 Right upper quadrant pain (principal); K57.30 Diverticulosis of large intestine without perforation or abscess without bleeding; I48.91 Unspecified atrial fibrillation; Z79.82 Long term (current) use of aspirin; Z87.891 Personal history of nicotine dependence
CPT/HCPCS: 36415; 74177; 80053; 81003; 83690; 85025; 96361; 96374; 96375; 99283; 99284; A9270; J1170; Q9967; 81001; 87086

== ENCOUNTER 2017-12-01 14:29 | Outpatient (CLI) | payer MEDICARE, BC | END 2017-12-01 14:30 | disposition critical access hospital (66) | LOC: EMS 14:29 | PROVIDERS: ATTEND Surgery | DX: R09.89 Other specified symptoms and signs involving the circulatory and respiratory systems (principal); R42 Dizziness and giddiness; R11.0 Nausea | CPT/HCPCS: A0425; A0429 ==

== ENCOUNTER 2017-12-01 15:11 | Inpatient (IN) | payer MEDICARE, BC ==
[2017-12-01] MEDS ORDERED: ASPIRIN CHEW 81 MG TABLET PO STA (15:19)
--- NOTE | 2017-12-01 15:22 | ED Physician Documentation ---
PD HPI CHEST PAIN - Stated complaint Stated Complaint: CP - History obtained from History obtained from: Patient, EMS - History of Present Illness Timing - onset: Today (87-year-old gentleman with extensive history of coronary disease status post remote bypass and stenting. He was seen last night for right upper quadrant/right low chest pain. Workup was negative. This morning developed anterior chest pressure which briefly related to the back, the back part is now gone but still has very mild anterior chest pressure and feels anxious about it. Per paramedics he was having a lot of PVCs in route and he says he recently had a Holter monitor about 3 weeks ago which also showed a lot of PVCs, but he feels a much more frequently today than ever before.) Review of Systems Ten Systems: 10 systems reviewed and negative Constitutional: reports: Fatigue. denies: Fever, Chills Cardiac: reports: Chest pain / pressure. denies: Palpitations Respiratory: reports: Dyspnea. denies: Cough GI: denies: Abdominal Pain, Nausea, Vomiting PD PAST MEDICAL HISTORY - Past Medical History Cardiovascular: Coronary artery disease, Angina, Atrial fibrillation, Arrhythmia Respiratory: Pneumonia Endocrine/Autoimmune: HyPOthyroidism GI: GERD, Ulcers, Hemorrhoids, Diverticulitis : Benign prostate hypertrophy, Frequency HEENT: Glaucoma, Chronic hearing loss Psych: Depression Musculoskeletal: Osteoarthritis Derm: Rosacea - Past Surgical History Past Surgical History: Yes General: Cholecystectomy, Appendectomy, Colonoscopy Ortho: Arthroscopic surgery Cardiovascular: CABG, Coronary stent HEENT: Cataracts, Tonsil/Adenoidectomy - Present Medications Home Medications: Ambulatory Orders Medication Instructions Recorded Confirmed Aspirin 81 mg PO DAILY 02/07/13 11/13/17 Brinzolamide 1% Ophth Drops [Azopt 1 drops OPTH BID 07/25/16 11/13/17 1% Ophth Drops] Levothyroxine Sodium [Synthroid] 25 mcg PO DAILY 07/25/16 11/13/17 Nitroglycerin [Nitrostat] 0.3 mg SL ONCE PRN 07/25/16 11/13/17 clonazePAM [KlonoPIN] 0.5 mg PO ACHS PRN 01/25/17 11/13/17 Metoprolol Succinate [Toprol Xl] 50 tab PO BID 02/27/17 11/13/17 Ondansetron HCl [Zofran] 4 mg PO Q4H PRN 03/23/17 11/13/17 Hydrocodone/Acetaminophen 1 - 2 each PO Q6H PRN #14 tablet 11/30/17 [Hydrocodon-Acetaminophen 5-325] Multivitamin [Multiple Vitamins] 1 each PO 11/30/17 Rosuvastatin Calcium [Crestor] 5 mg PO 11/30/17 Sucralfate [Carafate] 1 gm PO ACHS #60 tablet 11/30/17 - Allergies Allergies/Adverse Reactions: Allergies Allergy/AdvReac Type Severity Reaction Status Date / Time lorazepam [From Ativan] Allergy Intermediate Nausea Verified 12/01/17 15:22 amylase [From Creon] Allergy Edema Verified 12/01/17 15:22 lipase [From Creon] Allergy Edema Verified 12/01/17 15:22 protease [From Creon] Allergy Edema Verified 12/01/17 15:22 ciprofloxacin HCl * AdvReac Intermediate confusion Verified 12/01/17 15:22 [From Cipro] codeine AdvReac Intermediate Cramps Verified 12/01/17 15:22 levofloxacin [From Levaquin] AdvReac Intermediate confusion Verified 12/01/17 15:22 Sulfa (Sulfonamide AdvReac Intermediate Nausea Verified 12/01/17 15:22 Antibiotics) - Social History Does the pt smoke?: No Smoking Status: Former smoker Does the pt drink ETOH?: No Does the pt have substance abuse?: No - Immunizations Immunizations are current?: Yes - POLST Patient has POLST: Yes PD ED PE NORMAL - Vitals Vital signs reviewed: Yes - General General: Alert and oriented X 3, No acute distress - HEENT HEENT: PERRL, EOMI - Neck Neck: Supple, no meningeal sign, No bony TTP - Cardiac Cardiac: Other (Ventricular bigeminy on the monitor corresponding to pulsatile bradycardia) - Respiratory Respiratory: No respiratory distress, Clear bilaterally - Abdomen Abdomen: Normal bowel sounds, Non tender - Back Back: No CVA TTP, No spinal TTP - Derm Derm: Normal color, Warm and dry - Extremities Extremities: No edema, No calf tenderness / cord - Neuro Neuro: Alert and oriented X 3, Normal speech - Psych Psych: Normal mood, Normal affect Results - Vitals Vitals: Vital Signs - 24 hr 12/01/17 15:18 Temperature 37.1 C Heart Rate 66 Respiratory 16 Rate Blood Pressure 142/66 H O2 Saturation 100 Oxygen O2 Source Room air - EKG (time done) 1516 Rate: Rate (enter#) (79) Rhythm: NSR (With ventricular bigeminy) [place]: Normal Intervals: Normal [place] QRS: Normal Ischemia: Normal ST segments Computer interpretation: Agree with computer 1559 Rate: Rate (enter#) (81) Rhythm: NSR (with PVCs in bigminy) [place]: Normal Intervals: Normal [place] QRS: Normal Compare to prior EKG: Unchanged from prior EKG Computer interpretation: Agree with computer - Labs Labs: Laboratory Tests 12/01/17 12/01/17 12/01/17 15:30 15:30 15:30 WBC 4.5 L RBC 3.83 L Hgb 12.2 L Hct 35.5 L MCV 92.6 MCH 31.8 H MCHC 34.4 RDW 15.9 H Plt Count 131 MPV 8.4 Neut # (Auto) 3.3 Lymph # (Auto) 0.9 L [place] # (Auto) 0.2 Eos # (Auto) 0.2 Baso # (Auto) 0.0 Absolute Nucleated RBC 0.00 Nucleated RBC % 0.0 Sodium 134 L Potassium 4.4 Chloride 105 Carbon Dioxide 21 Anion Gap 8.0 BUN 18 Creatinine 1.3 H Estimated GFR (MDRD) 52 L Glucose 92 Calcium 8.4 L Total Bilirubin 0.8 AST 21 ALT 18 Alkaline Phosphatase 78 Total Creatine Kinase 153 CK-MB (CK-2) 5.7 Troponin I < 0.04 Total Protein 6.5 L Albumin 3.9 Globulin 2.6 Albumin/Globulin Ratio 1.5 Lipase 32 PD MEDICAL DECISION MAKING - ED course ED course: 87-year-old gentleman with known coronary disease presents with somewhat atypical anterior chest pain in the setting of a nonischemic EKG although in ventricular bigeminy and negative cardiac markers. He did require a touch of morphine here for chest pain. The pain briefly radiated to the back but nothing else in the history and physical suggest dissection. Case was discussed with his saw straightener litigation secretary, Dr. Goodman for Dr. Poole who recommended beta-blockade and a formal rule out and a stress test later. Spoke with Dr. Trujillo for observation at 4:20 PM Departure - Departure Disposition: ED Place in Observation Clinical Impression: Chest pain, Coronary arteries, normal Condition: Stable
[2017-12-01 15:40] LABS: BASOPHILS % (AUTO) 0.6 %; EOSINOPHILS # (AUTO) 0.2 10^3/uL (0.0-0.7); EOSINOPHILS % (AUTO) 3.6 %; HGB - HEMOGLOBIN 12.2 g/dL (14.0-18.0); LYMPHOCYTES # (AUTO) 0.9 10^3/uL (1.5-3.5); LYMPHOCYTES % (AUTO) 19.5 %; MEAN CORPUSCULAR HEMOGLOBIN 31.8 pg (27.0-31.0); MEAN CORPUSCULAR HGB CONC 34.4 g/dL (32.0-36.0); MEAN CORPUSCULAR VOLUME 92.6 fL (80.0-94.0); MEAN PLATELET VOLUME 8.4 fL (7.4-11.4); MONOCYTES # (AUTO) 0.2 10^3/uL (0.0-1.0); MONOCYTES % (AUTO) 3.9 %; NEUTROPHILS # (AUTO) 3.3 10^3/uL (1.5-6.6); NEUTROPHILS % (AUTO) 72.4 %; PLT - PLATELET COUNT 131 10^3/uL (130-450); RED BLOOD COUNT 3.83 10^6/uL (4.70-6.10); RED CELL DISTRIBUTION WIDTH 15.9 % (12.0-15.0); WHITE BLOOD COUNT 4.5 x10^3/uL (4.8-10.8)
[2017-12-01 15:50] LABS: ALBUMIN 3.9 g/dL (3.2-5.5); ALBUMIN/GLOBULIN RATIO 1.5 (1.0-2.2); BILIRUBIN,TOTAL 0.8 mg/dL (0.2-1.0); CALCIUM 8.4 mg/dL (8.5-10.3); CREATININE 1.3 mg/dL (0.6-1.2); TOTAL PROTEIN 6.5 g/dL (6.7-8.2)
[2017-12-01 15:54] LABS: TROPONIN I < 0.04 ng/mL (<0.49)
[2017-12-01 15:56] LABS: CREATINE KINASE MB 5.7 ng/mL (0.6-6.3)
--- NOTE | 2017-12-01 15:59 | XRAY Report ---
Reason: chest pain Procedure Date: 12/01/2017 Accession Number: [id number] / [id number] Procedure: XR - Chest 1 View X-Ray CPT Code: 08914 FULL RESULT: EXAM: CHEST RADIOGRAPHY EXAM DATE: 12/01/2017 03:30 PM. CLINICAL HISTORY: Chest pain. COMPARISON: 02/26/2017. TECHNIQUE: 1 view. FINDINGS: Lungs/Pleura: No focal opacities evident. No pleural effusion. No pneumothorax. Decreased lung volumes Mediastinum: Poststernotomy. Heart size normal. Ectatic aorta Other: Right upper quadrant clips IMPRESSION: No active cardiopulmonary disease RADIA
[2017-12-01] MEDS ORDERED: MORPHINE 2 MG/ML CARPUJECT IVP STA (16:08)
[2017-12-01] MEDS ORDERED: ONDANSETRON 4 MG/2 ML VIAL IVP STA (16:11)
[2017-12-01] MEDS ORDERED: METOPROLOL TARTRATE 50 MG TABLET PO STA (16:17)
[2017-12-01] MEDS ORDERED: ACETAMINOPHEN 325 MG TABLET PO PRN (17:25)
[2017-12-01] MEDS ORDERED: MORPHINE 2 MG/ML CARPUJECT IVP PRN (17:25)
[2017-12-01 17:44] LABS: INR 1.1 (0.8-1.2); PT - PROTHROMBIN TIME 11.9 secs (9.9-12.6)
[2017-12-01] MEDS ORDERED: HYDROcod/ACET 5/325 Prepack 4 PO PRN (17:53)
[2017-12-01] MEDS ORDERED: clonazePAM 0.5 MG TABLET PO PRN ×2 (17:53→19:09)
[2017-12-01] MEDS ORDERED: NITROGLYCERIN 0.3 MG SL PRN (17:54)
[2017-12-01] MEDS ORDERED: PROCHLORPERAZINE INJ 10 MG in SODIUM CHLORIDE 0.9% 50 ML IV PRN (18:57)
[2017-12-01] MEDS ORDERED: D5NS W/20 MEQ KCL 1,000 ML IV SCH (19:00)
[2017-12-01] MEDS: PANTOPRAZOLE 40 MG VIAL IVP SCH (19:08)
[2017-12-01] MEDS: SODIUM CHLORIDE FLUSH 0.9% 10 ML SYRINGE IVP PRN (19:08)
[2017-12-01] MEDS ORDERED: NITROGLYCERIN SL 0.4 MG TABLET SL PRN (19:09)
[2017-12-01] MEDS ORDERED: HYDROcod/ACETAM 5/325 MG TABLET PO PRN (19:46)
[2017-12-01] MEDS ORDERED: PROCHLORPERAZINE 10 MG/2 ML VIAL IVP PRN (19:53)
[2017-12-01] MEDS ORDERED: METOPROLOL SUCCINATE 25 MG TABLET PO SCH ×2 (21:00)
[2017-12-01] MEDS ORDERED: BRINZOLAMIDE 1% OPHTH DROPS EACHEYE SCH (21:00)
[2017-12-01] MEDS ORDERED: SUCRALFATE 1 GM/10 ML UDC PO SCH (21:00)
--- NOTE | 2017-12-01 21:03 | XRAY Report ---
Reason: abd pain, eval for obstruction Procedure Date: 12/01/2017 Accession Number: [id number] / [id number] Procedure: XR - Abdomen 1 View X-Ray CPT Code: 55566 FULL RESULT: EXAM: ABDOMEN RADIOGRAPHY EXAM DATE: 12/01/2017 08:26 PM. CLINICAL HISTORY: Abdominal pain. Evaluate for obstruction. COMPARISON: ABDOMEN/PELVIS W/ 11/30/2017 8:31 PM. TECHNIQUE: 1 view. FINDINGS: Bowel Gas Pattern: Multiple gas-filled nondilated loops of small and large bowel. No abnormal stool volume. Bones: Mild left convex curvature centered at L3-L4. Other: Multiple surgical clips in the right upper quadrant. Left intrapelvic phleboliths. IMPRESSION: Multiple nondilated gas-filled loops of small and large bowel, nonspecific. RADIA
[2017-12-01] MEDS: D5NS W/20 MEQ KCL 1,000 ML IV SCH (21:28)
[2017-12-01] MEDS: ATORVASTATIN 10 MG TABLET PO SCH (22:33)
[2017-12-01] MEDS: clonazePAM 0.5 MG TABLET PO PRN (22:35)
--- NOTE | 2017-12-02 01:11 | HISTORY & PHYSICAL EXAMINATION ---
DATE OF SERVICE: 12/01/2017 Physician: Laura Trujillo MD HISTORY OF PRESENT ILLNESS: This is an 87-year-old white male with a history of coronary artery disease, prior bypass surgery and stents, history of myelodysplastic syndrome, hypothyroidism and CKD. The patient has had 10 days of awakening with midd-abdiominal pain and needs to have 4 BMs for relief, with semi-formed stool. He was in the emergency room yesterday with complaints of severe right abdominal pain with tenderness on exam, but it was felt to be from GERD or gastritis. He was sent home with a higher dose of medications plus new Carafate. Today, the patient developed chest pressure like his angina when he needed stenting, associated with shortness of breath. He rated the chest pain a 6/10, and the n new recurrence of his angina made him nervous, thus he came to the ER. He also has been experiencing more palpitations for several weeks, and in the ER telemetry showed frequent PVCs. Apparently, as an outpatient there was a recent Holter that did show PVCs; it was done for evaluating dizziness. The patient had slow resolution of his chest pressure in the ER, needed morphine. He was to be placed in Observation for further evaluation and management of his chest pain, but due to persistent abdominal symptoms and abnormal CT abdomen from yesterday showing partial bowel obstruction, he will be admitted as an inpatient. PAST MEDICAL HISTORY 1. Coronary artery disease with bypasses and stents. 2. Myelodysplastic syndrome. 3. CKD. 4. Hypothyroidism. ALLERGIES 1. LORAZEPAM. 2. AMYLASE. 3. LIPASE. 4. PROTEASE. 5. CIPRO. 6. CODEINE. 7. LEVAQUIN. 8. SULFA. MEDICATIONS 1. Klonopin 0.5 mg at bedtime p.r.n. insomnia 2. Carafate 1 g p.o. a.c. and at bedtime. 3. Crestor 5 mg daily. 4. Zofran p.r.n. 5. Nitroglycerin sublingual p.r.n. 6. Multivitamin daily. 7. Toprol-XL 50 mg in am, 100 mg in pm. 8. Synthroid 25 mcg daily. 9. Tylenol with codeine p.r.n. 10. Azopt eye drops. 11. Baby aspirin daily. FAMILY HISTORY: No inherited diseases. SOCIAL HISTORY: The patient is a nonsmoker who never smoked, drinks rare alcohol and uses no illicit drugs. He is a since 2015. He is a writer technical publications. REVIEW OF SYSTEMS: There has been no recent leg swelling, PND or orthopnea, cyanosis. There has been dizziness unrelated to posture, for the past 6 months, ever since starting treatment for myelodysplastic syndrome. There has been no syncope. He is compliant with his medications. Comprehensive review of systems was performed, and the pertinent positives are in the HPI; the rest are negative. PHYSICAL EXAMINATION GENERAL: Elderly, thin white male. He is in no distress. VITAL SIGNS: Blood pressure 140/60 but after morphine dropped to 101/51, heart rate is 65, in sinus rhythm, afebrile, room air saturation 100%. HEENT: Unremarkable except for male pattern baldness. NECK: Without JVD. No carotid bruits. CHEST: Clear. HEART: Heart sounds are normal. No murmur. ABDOMEN: Soft. No organomegaly. No rebound or guarding, but tender in the right mid abdomen. Hyperactive bowel sounds. EXTREMITIES: No clubbing, cyanosis, or edema. NEUROLOGIC: Intact. LABORATORY STUDIES: Normal electrolytes. BUN is 18, creatinine 1.3 (his baseline creatinine fluctuates between 1.0 and 1.5). Magnesium 2.0. Normal liver tests, normal bilirubin. Troponin not detectable. Lipase normal. INR normal. White blood count 4.5, hemoglobin 12.2, platelet count 131. IMAGING: Chest x-ray: No active disease. Yesterdays abdomen CT showed: dilated loops of small bowel. ELECTROCARDIOGRAM: Normal sinus rhythm with ventricular bigeminy. Early RS transition. There are no ST or T-wave abnormalities. The PVCs are new. The early RS transition is old from an EKG from several years ago. IMPRESSION/DIAGNOSES 1. Angina. 2. Premature ventricular contractions, which are symptomatic. 3. Coronary artery disease history. 4. Myelodysplastic syndrome with low white count and hemoglobin. 5. Small bowel obstruction. 6. Chronic kidney disease. 7. Hypothyroidism. PLAN: Admit the patient, on telemetry. Cycle his troponins x3. Obtain a morning EKG as follow up to check for new ischemic changes. Continue with his aspirin and cardiac medications. Check lipid panel, as his medications could be adjusted. Obtain an Echo because of the abnormal EKG suggesting cor pulmonale. Obtaiin a KUB XRay. Begin bowel rest, with a liquid diet only. Start iv hydration, follow his I's and O's and BUN/creat. If there has been no resolution of the daily am abdominal pain, obtain a gastrograffin CT abdomen. Follow his WBC. CODE STATUS: DNR. DEEP VENOUS THROMBOSIS PROPHYLAXIS: SCDs. ATTESTATION: The patient is expected to be discharged or transferred to another facility within 96 hours: Yes. cc: Evens Aguilar MD TD: 12/01/2017 18:59 MTDD
[2017-12-02] MEDS: SODIUM CHLORIDE FLUSH 0.9% 10 ML SYRINGE IVP SCH ×4 (05:59→23:55)
[2017-12-02] MEDS: LEVOTHYROXINE 25 MCG TABLET PO SCH (06:35)
[2017-12-02] MEDS: PANTOPRAZOLE 40 MG VIAL IVP SCH ×2 (06:35→16:21)
[2017-12-02] MEDS: SODIUM CHLORIDE FLUSH 0.9% 10 ML SYRINGE IVP PRN ×2 (06:35→16:21)
[2017-12-02 07:23] LABS: BUN - BLOOD UREA NITROGEN 17 mg/dL (6-20); CALCIUM 8.1 mg/dL (8.5-10.3); CARBON DIOXIDE - CO2 22 mmol/L (21-32); CHLORIDE 109 mmol/L (101-111); CHOL/HDL RATIO 2.9 (<5.0); CHOLESTEROL 117 mg/dL; CREATININE 1.1 mg/dL (0.6-1.2); GFR - MDRD 63 (>89); GLUCOSE 96 mg/dL (70-100); HDL CHOLESTEROL 41 mg/dL; LDL CHOLESTEROL,CALCULATED 67 mg/dL; LDL/HDL RATIO 1.6 (<3.6); MAGNESIUM 2.1 mg/dL (1.7-2.8); SODIUM 136 mmol/L (135-145); VLDL CHOLESTEROL 9 mg/dL
[2017-12-02] MEDS: BRINZOLAMIDE 1% OPHTH DROPS EACHEYE SCH ×4 (08:07→20:35)
[2017-12-02] MEDS ORDERED: IOPAMIDOL-300 50 ML VIAL ONE (08:22)
[2017-12-02] MEDS: MULTIVITAMIN TABLET PO SCH (08:37)
[2017-12-02] MEDS: ASPIRIN CHEW 81 MG TABLET PO SCH (08:37)
[2017-12-02] MEDS: D5NS W/20 MEQ KCL 1,000 ML IV SCH (08:39)
[2017-12-02 08:42] LABS: EOSINOPHILS # (AUTO) 0.2 10^3/uL (0.0-0.7); LYMPHOCYTES # (AUTO) 0.6 10^3/uL (1.5-3.5); LYMPHOCYTES % (AUTO) 25.8 %; MEAN CORPUSCULAR HEMOGLOBIN 31.7 pg (27.0-31.0); MEAN CORPUSCULAR HGB CONC 34.2 g/dL (32.0-36.0); MEAN CORPUSCULAR VOLUME 92.6 fL (80.0-94.0); MEAN PLATELET VOLUME 8.2 fL (7.4-11.4); MONOCYTES # (AUTO) 0.1 10^3/uL (0.0-1.0); MONOCYTES % (AUTO) 3.3 %; NEUTROPHILS # (AUTO) 1.4 10^3/uL (1.5-6.6); NEUTROPHILS % (AUTO) 62.9 %; PLT - PLATELET COUNT 105 10^3/uL (130-450); RED BLOOD COUNT 3.47 10^6/uL (4.70-6.10); RED CELL DISTRIBUTION WIDTH 15.6 % (12.0-15.0); WHITE BLOOD COUNT 2.3 x10^3/uL (4.8-10.8)
[2017-12-02] MEDS ORDERED: METOPROLOL TARTRATE 50 MG TABLET PO SCH ×2 (09:00→21:00)
[2017-12-02] MEDS ORDERED: POLYETHYLENE GLYCOL 3350 17 GM PACKET PO SCH (09:00)
[2017-12-02 09:06] LABS: RBC MORPHOLOGY (MULTIPLE) 2+ ANISOCYTOSIS (NORMAL)
--- NOTE | 2017-12-02 12:48 | CT Report ---
Reason: SBO Procedure Date: 12/02/2017 Accession Number: [id number] / [id number] Procedure: CT - Abdomen/Pelvis W/O CPT Code: FULL RESULT: EXAM: CT ABDOMEN AND PELVIS EXAM DATE: 12/02/2017 10:53 AM. CLINICAL HISTORY: SBO. COMPARISONS: CT of the abdomen and pelvis from 11/30/2017. TECHNIQUE: Routine helical CT imaging was performed through the abdomen and pelvis. IV contrast: None. Enteric contrast: Yes. Reconstructions: Coronal and sagittal. In accordance with CT protocol optimization, one or more of the following dose reduction techniques were utilized for this exam: automated exposure control, adjustment of mA and/or KV based on patient size, or use of iterative reconstructive technique. FINDINGS: Lung Bases: There is mild atelectasis in the lung bases. No airspace opacity or consolidation. Liver: Unremarkable by noncontrast CT. Gallbladder/Bile Ducts: Gallbladder is surgically absent. Caliber of the bile ducts is within normal limits for postcholecystectomy state. Spleen: Unremarkable. Pancreas: Unremarkable. Adrenal Glands: No nodules. Kidneys: Unremarkable. No hydronephrosis. Peritoneal Cavity/Bowel: No evidence of bowel obstruction or inflammation. The appendix is not visualized and may be surgically absent. There is colonic diverticulosis, severe in the sigmoid colon. No evidence for acute diverticulitis. Pelvic Organs: Urinary bladder is unremarkable. No iliac chain adenopathy or free fluid. 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 Aortic caliber measures approximately 3.1 cm in this location (series 6, image 35), which is not significantly changed. Bones: No suspicious osseous lesion. Other: No retroperitoneal adenopathy. IMPRESSION: 1. No evidence of bowel obstruction, as queried. 2. No finding suspicious for acute infectious or inflammatory process in the abdomen or pelvis. 3. 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 RADIA
[2017-12-02] MEDS ORDERED: IOPAMIDOL-300 50 ML VIAL PO ONE (17:39)
--- NOTE | 2017-12-02 18:58 | PROVIDER PROGRESS NOTE ---
Assessment/Plan - Problem List (1) SBO (small bowel obstruction) Assessment/Plan: Oral contrast CT today. If improved, will advance diet and top iv hydration. (2) Angina pectoris Assessment/Plan: No further episodes of his angina. EKG had no cheanges (except improvement in PVC burden) and Echo shows no wall motion abnormalities. Will have pt do activity to assess if there is any exertional angina. (3) CKD (chronic kidney disease) Qualifiers: Chronic kidney disease stage: stage 2 (mild) Qualified Code(s): N18.2 - Chronic kidney disease, stage 2 (mild) Assessment/Plan: Improved with gentle hydration, while getting bowel rest. Monitor BMP daily. (4) Myelodysplastic syndrome Assessment/Plan: Stable CBC. - Current Meds Current Meds: Current Medications Generic Name Dose Route Start Last Admin Trade Name Freq PRN Reason Stop Dose Admin Aspirin 81 mg 12/02/17 09:00 12/02/17 08:37 St Leif Aspirin PO 81 mg DAILY ESCOBAR Administration Atorvastatin Calcium 5 mg 12/01/17 22:30 12/01/17 22:33 Lipitor PO 5 mg QPM ESCOBAR Administration Brinzolamide 1 drops 12/01/17 09:00 12/02/17 09:38 Azopt 1% Ophth Drops EACHEYE 1 drops BID ESCOBAR Administration Clonazepam 0.5 mg 12/01/17 19:52 12/01/17 22:35 Klonopin PO 0.5 mg QPM PRN Administration Insomnia Potassium Chloride/Dextrose/Sod Cl 1,000 mls @ 80 mls/hr 12/01/17 19:54 12/02/17 08:39 IV 80 mls/hr .[id number] ESCOBAR Administration Levothyroxine Sodium 25 mcg 12/02/17 07:00 12/02/17 06:35 Synthroid PO 25 mcg 0700 ESCOBAR Administration Multivitamins 1 tab 12/02/17 09:00 12/02/17 08:37 Theragran PO 1 tab DAILY ESCOBAR Administration Pantoprazole Sodium 40 mg 12/01/17 18:00 12/02/17 16:21 Protonix IVP 40 mg BIDAC ESCOBAR Administration Sodium Chloride 10 ml 12/01/17 17:25 12/02/17 16:21 Normal Saline Flush 0.9% IVP 10 ml PRN PRN Administration NEEDED PER PROVIDER ORDERS Sodium Chloride 10 ml 10/21/18 01:00 12/02/17 16:21 Normal Saline Flush 0.9% IVP 10 ml 0100,0900,1700 ESCOBAR Administration - Lab Result Fish Bone Diagrams: 12/03/17 05:39 12/03/17 05:39 - Additional Planning My Orders: My Active Orders 12/01/17 18:00 Pantoprazole [Protonix] 40 mg IVP BIDAC 12/01/17 19:09 Nitroglycerin [Nitrostat] 0.4 mg SL Q5MIN PRN 12/01/17 19:52 clonazePAM [KlonoPIN] 0.5 mg PO QPM PRN 12/01/17 19:53 Prochlorperazine Inj [Compazine Inj] 10 mg IVP Q6HR PRN 12/01/17 19:54 D5ns W/20 Meq KCl 1,000 ml IV 80 mls/hr 12/02/17 01:00 Sodium Chloride Flush 0.9% [Normal Saline Flush 0.9%] 10 ml IVP 0100,0900,1700 12/02/17 07:00 Levothyroxine [Synthroid] 25 mcg PO 0700 12/02/17 08:00 Echo Transthoracic Complete [ECHO] Routine 12/02/17 09:00 Aspirin Chewable [[facility] Leif Aspirin] 81 mg PO DAILY Multivitamin [Theragran] 1 tab PO DAILY 12/02/17 21:00 Metoprolol Succinate [Toprol Xl] 12.5 mg PO BID Metoprolol Succinate [Toprol Xl] 50 mg PO BID 12/03/17 05:00 BMP - BASIC METABOLIC PANEL [CHEM] DAILYLAB CBC - COMP BLD CT W/AUTO DIFF [HEME] DAILYLAB 12/03/17 Breakfast DIET [Soft (Low Fiber) Diet] [DIET] 12/04/17 05:00 CBC - COMP BLD CT W/AUTO DIFF [HEME] DAILYLAB 12/05/17 05:00 CBC - COMP BLD CT W/AUTO DIFF [HEME] DAILYLAB Subjective - Subjective Patient Reports: Other (Feeling more tired on higher B-janina dise, but PVCs are fewer. Abd pain resolved overnight, no BM today.) Objective Vital Signs: Vital Signs - 24 hr 10/20/18 10/20/18 10/21/18 20:49 23:00 05:00 Temperature 36.6 C 36.5 C 36.9 C Heart Rate Heart Rate [ 65 62 63 Brachial] Respiratory 18 18 16 Rate Blood Pressure Blood Pressure 110/52 L 109/56 L 115/57 L [Left Brachial artery] O2 Saturation 97 96 97 12/02/17 12/02/17 12/02/17 07:33 08:37 10:17 Temperature 36.6 C 36.6 C Heart Rate 52 L Heart Rate [ 52 L Brachial] Respiratory 12 16 Rate Blood Pressure 121/61 Blood Pressure 121/61 [Left Brachial artery] O2 Saturation 97 97 12/02/17 12/02/17 12:49 15:35 Temperature 36.4 C L 36.8 C Heart Rate Heart Rate [ 57 L 55 L Brachial] Respiratory 14 18 Rate Blood Pressure Blood Pressure 143/61 H 130/78 [Left Brachial artery] O2 Saturation 99 99 Oxygen O2 Source Room air I&O (Last 24 Hrs): Intake and Output Totals x24h 11/30/17 12/01/17 12/02/17 23:59 23:59 23:59 Intake Total 150 2794.667 Output Total 550 Balance 150 2244.667 General: Alert, Oriented x3 HEENT: Mucous membr. moist/pink Neck: Supple, No JVD Neuro: Non Focal Cardiovascular: Regular rate, No murmurs Respiratory: No respiratory distress, Breath sounds nml Abdomen: Soft, No tenderness Extremities: No edema - Results Results: Laboratory Results WBC 2.3 x10^3/uL (4.8-10.8) L 12/02/17 06:37 RBC 3.47 10^6/uL (4.70-6.10) L 12/02/17 06:37 Hgb 11.0 g/dL (14.0-18.0) L 12/02/17 06:37 Hct 32.1 % (42.0-52.0) L 12/02/17 06:37 MCV 92.6 fL (80.0-94.0) 12/02/17 06:37 MCH 31.7 pg (27.0-31.0) H 12/02/17 06:37 MCHC 34.2 g/dL (32.0-36.0) 12/02/17 06:37 RDW 15.6 % (12.0-15.0) H 12/02/17 06:37 Plt Count 105 10^3/uL (130-450) L 12/02/17 06:37 MPV 8.2 fL (7.4-11.4) 12/02/17 06:37 Neut # (Auto) 1.4 10^3/uL (1.5-6.6) L 12/02/17 06:37 Lymph # (Auto) 0.6 10^3/uL (1.5-3.5) L 12/02/17 06:37 [place] # (Auto) 0.1 10^3/uL (0.0-1.0) 12/02/17 06:37 Eos # (Auto) 0.2 10^3/uL (0.0-0.7) 12/02/17 06:37 Baso # (Auto) 0.0 10^3/uL (0.0-0.1) 12/02/17 06:37 Absolute Nucleated RBC 0.01 x10^3/uL 12/02/17 06:37 Nucleated RBC % 0.2 /100WBC 12/02/17 06:37 Manual Slide Review Indicated 12/02/17 06:37 RBC Morph Micro Appear 2+ ANISOCYTOSIS (NORMAL) 12/02/17 06:37 PT 11.9 secs (9.9-12.6) 12/01/17 15:30 INR 1.1 (0.8-1.2) 12/01/17 15:30 Sodium 136 mmol/L (135-145) 12/02/17 06:37 Potassium 4.4 mmol/L (3.5-5.0) 12/02/17 06:37 Chloride 109 mmol/L (101-111) 12/02/17 06:37 Carbon Dioxide 22 mmol/L (21-32) 12/02/17 06:37 Anion Gap 5.0 (6-13) L 12/02/17 06:37 BUN 17 mg/dL (6-20) 12/02/17 06:37 Creatinine 1.1 mg/dL (0.6-1.2) 12/02/17 06:37 Estimated GFR (MDRD) 63 (>89) L 12/02/17 06:37 Glucose 96 mg/dL (70-100) 12/02/17 06:37 Calcium 8.1 mg/dL (8.5-10.3) L 12/02/17 06:37 Magnesium 2.1 mg/dL (1.7-2.8) 12/02/17 06:37 Total Bilirubin 0.8 mg/dL (0.2-1.0) 12/01/17 15:30 AST 21 IU/L (10-42) 12/01/17 15:30 ALT 18 IU/L (10-60) 12/01/17 15:30 Alkaline Phosphatase 78 IU/L (42-121) 12/01/17 15:30 Total Creatine Kinase 153 IU/L (22-269) 12/01/17 15:30 CK-MB (CK-2) 5.7 ng/mL (0.6-6.3) 12/01/17 15:30 Troponin I < 0.04 ng/mL (<0.49) 12/02/17 06:37 Total Protein 6.5 g/dL (6.7-8.2) L 12/01/17 15:30 Albumin 3.9 g/dL (3.2-5.5) 12/01/17 15:30 Globulin 2.6 g/dL (2.1-4.2) 12/01/17 15:30 Albumin/Globulin Ratio 1.5 (1.0-2.2) 12/01/17 15:30 Triglycerides 44 mg/dL (-149) 12/02/17 06:37 Cholesterol 117 mg/dL (-199) 12/02/17 06:37 LDL Cholesterol, Calc 67 mg/dL (-129) 12/02/17 06:37 VLDL Cholesterol 9 mg/dL 12/02/17 06:37 HDL Cholesterol 41 mg/dL (60-) L 12/02/17 06:37 LDL/HDL Ratio 1.6 (<3.6) 12/02/17 06:37 Cholesterol/HDL Ratio 2.9 (<5.0) 12/02/17 06:37 Lipase 32 U/L (22-51) 12/01/17 15:30 TSH 3.14 uIU/mL (0.34-5.60) 12/02/17 06:37 - Procedures Procedures: Procedures ENDOSC POLYPECTOMY OF LG INTEST (10/06/13) EXCISION OF STOMACH, ENDO, DIAGN (07/19/16) EXCISION OF STOMACH, PYLORUS, ENDO, DIAGN (07/19/16) OTHER ENDOSCOPY OF SM INTEST (02/17/13)
[2017-12-02] MEDS: METOPROLOL SUCCINATE 25 MG TABLET PO SCH (20:33)
[2017-12-02] MEDS: ATORVASTATIN 10 MG TABLET PO SCH (20:33)
[2017-12-02] MEDS: METOPROLOL SUCCINATE 50 MG TABLET PO SCH (20:34)
[2017-12-02] MEDS: clonazePAM 0.5 MG TABLET PO PRN (23:03)
[2017-12-03 06:02] LABS: BASOPHILS % (AUTO) 1.6 %; EOSINOPHILS # (AUTO) 0.2 10^3/uL (0.0-0.7); EOSINOPHILS % (AUTO) 8.1 %; HGB - HEMOGLOBIN 10.8 g/dL (14.0-18.0); LYMPHOCYTES # (AUTO) 0.8 10^3/uL (1.5-3.5); LYMPHOCYTES % (AUTO) 36.3 %; MEAN CORPUSCULAR HEMOGLOBIN 31.6 pg (27.0-31.0); MEAN CORPUSCULAR HGB CONC 33.6 g/dL (32.0-36.0); MEAN PLATELET VOLUME 7.5 fL (7.4-11.4); MONOCYTES # (AUTO) 0.1 10^3/uL (0.0-1.0); MONOCYTES % (AUTO) 3.2 %; NEUTROPHILS # (AUTO) 1.1 10^3/uL (1.5-6.6); NEUTROPHILS % (AUTO) 50.8 %; PLT - PLATELET COUNT 100 10^3/uL (130-450); RED BLOOD COUNT 3.43 10^6/uL (4.70-6.10); RED CELL DISTRIBUTION WIDTH 15.8 % (12.0-15.0); WHITE BLOOD COUNT 2.2 x10^3/uL (4.8-10.8)
[2017-12-03 06:10] LABS: CALCIUM 8.2 mg/dL (8.5-10.3); CREATININE 1.3 mg/dL (0.6-1.2)
[2017-12-03 06:31] LABS: PLATELET ESTIMATE, MANUAL DECREASED (<130,000) (NORMAL); PLATELET MORPHOLOGY NORMAL APPEARANCE (NORMAL); RBC MORPHOLOGY (MULTIPLE) NORMAL APPEARANCE (NORMAL)
[2017-12-03] MEDS: PANTOPRAZOLE 40 MG VIAL IVP SCH (07:23)
[2017-12-03] MEDS: LEVOTHYROXINE 25 MCG TABLET PO SCH (07:23)
[2017-12-03] MEDS: SODIUM CHLORIDE FLUSH 0.9% 10 ML SYRINGE IVP PRN (07:24)
[2017-12-03 08:36] VITALS: BP 124/65
[2017-12-03] MEDS: METOPROLOL SUCCINATE 25 MG TABLET PO SCH (09:43)
[2017-12-03] MEDS: MULTIVITAMIN TABLET PO SCH (09:43)
[2017-12-03] MEDS: ASPIRIN CHEW 81 MG TABLET PO SCH (09:43)
[2017-12-03] MEDS: METOPROLOL SUCCINATE 50 MG TABLET PO SCH (09:43)
[2017-12-03] MEDS: BRINZOLAMIDE 1% OPHTH DROPS EACHEYE SCH (09:44)
[2017-12-03] MEDS: SODIUM CHLORIDE FLUSH 0.9% 10 ML SYRINGE IVP SCH (09:44)
--- NOTE | 2017-12-03 13:00 | Discharge Plan ---
Discharge Plan Disposition: 01 Home, Self Care Condition: Stable Diet: Soft Activity Restrictions: Activity as Tolerated Shower Restrictions: No Driving Restrictions: No Instruction Topics: Obstruction Sm Bowel, ED Abdominal Pain Adhesions, Angina Unstable Additional Instructions or Follow Up instructions: You were admitted after an episode of angina, probably brought on by the stress of your bowel symptoms. You were found to have a small bowel obstruction. Please advance your diet as tolerated; soft foods that are easy to digest are recommended. Also stay well hydrated. You should see your Audio Production Engineer for further evaluation and management of that recent bowel obstruction. Please see him in 1-2 weeks or sooner if your symptoms recur. You should also see your Straddle Truck Operator in follow-up, since you had a return of angina. You may need a stress test to evaluate for new coronary blockages. Do NOT begin strenuous exercise until cleared to do so by your Straddle Truck Operator. Resume all your pre-hospital medications. If you have new or worsening symptoms, come to the ER. No Smoking: If you smoke, Please STOP! Call for help. Follow-up with: Breanne Fontana MD [Provider Admit Priv/Credential] - Guille Poole MD [Physician No Access] -
--- NOTE | 2017-12-06 11:46 | DISCHARGE SUMMARY ---
Physician: Laura Trujillo MD DATE OF ADMISSION: 12/01/2017 DATE OF DISCHARGE: 12/03/2017 HISTORY OF PRESENT ILLNESS: This is an 87-year-old, white male with a history of coronary artery disease, prior bypass surgery and cardiac stents, hypothyroidism, CKD, and recently diagnosed myelodysplastic syndrome, for which he is on treatment. The patient presented with a description of 10 days of awakening with mid abdominal pain, needing to have 4 bowel movements for relief, the stool was semi-formed stool. He came to the emergency room the day before this admission with complaints of worsening severity of the abdominal pain and tenderness and had imaging studies, and was released with presumptive diagnosis of GERD or gastritis. On the following day, he had chest pressure, like his angina when he needed stenting, and this was associated with shortness of breath. For this he came to the ER now. He also describes feeling palpitations for several weeks. He describes having dizziness, for which he saw his Medical Assistant Ob Gyn, had undergone a Holter monitor, which did show PVCs and brief tachycardia, and he was told to increase his evening dose of metoprolol from 50 b.i.d. to 50 in the morning and 100 at night. He has done this for only 2 days. The patient was initially being evaluated for chest pain and plan for placement in Observation; however, his more significant symptoms were that of the abdominal pain, and upon review of the CT of the abdomen of the previous day, dilated loops of bowel were noted with concern for small-bowel obstruction. He was admitted for management of his small-bowel obstruction and evaluation of chest pain like his previous angina. HOSPITAL COURSE AND DISCHARGE DIAGNOSES 1. Small-bowel obstruction. The patient was on a liquid diet. He required no pain medications for the abdominal pain. He underwent an oral contrast CT scan for followup, and this showed resolution of the dilated loops of bowel. On the day of discharge, he also had resolution of his abdominal symptoms. His diet was advanced to a soft diet, and he was advised to see his Instrumental Music Teacher in followup. The concern is that he probably has adhesions since he has had 3 intra-abdominal surgeries and may have bowel obstruction again. 2. Angina. The patient had no further episodes of angina while here. Troponin values were normal x3. EKG showed normal sinus rhythm with ventricular bigeminy, but no ST or T wavchanges. The followup EKG showed improvement in the premature ventricular contraction (PVC) frequency on the higher dose of beta janina. He was asked to increase activity and walk in the hallways to determine if angina would recur, and he had no complaints. He was discharged on his same medications; however, there is consideration for further adjustment of his beta janina dose (see #5 below). 2. Chronic kidney disease (CKD). The patient's admission lab work showed BUN of 18, creatinine of 1.3. The creatinine was 1.1 the following day, but right jonah to 1.3 on the day of discharge. He was advised to stay well hydrated, especially in light of frequent bowel movements. 3. Myelodysplastic syndrome (MDS) . The patient's admission blood work showed a white count of 4.5, hemoglobin of 12.2, and platelet count of 131. At discharge, the white count was 2.2, hemoglobin 10.8 (after IV hydration, however), and platelet count of 100. He is being followed for MDS by his Oncologist. He is concerned that his medication for MDS is giving him his lightheadedness and dizziness. 4. Hypothyroidism. The patient had a TSH level of 3.14. He was continued on his same dose of Synthroid while here. 5. Fatigue, due to treatment. Patient reported significant fatigue on the higher dose of beta blockers. For this reason, the total dose of 150 mg daily was decreased to 125 mg daily in equally divided doses of Toprol-XL 62.5 mg b.i.d. This should be considered to continue as an outpatient. 6. History of coronary artery disease (CAD). No ischemic EKG changes were seen. Since angina has recurred, he may need stress testing as an outpatient. 7. Pulmonary hypertension. The patient underwent an Echo exam, and this showed normal left ventricular wall thickness with ejection fraction (EF) of 65-70%, grade 2 diastolic dysfunction, normal right ventricle (RV) size and function, dilated left and right atria, mild aortic regurgitation, tricuspid regurgitation, and pulmonary artery (PA) pressure of 40 mmHg, consistent with mild pulmonary hypertension. ALLERGIES 1. ATIVAN. 2. CREON. 3. CIPRO. 4. CODEINE. 5. LEVAQUIN. 6. SULFA. MEDICATIONS AT THE TIME OF DISCHARGE 1. Baby aspirin daily. 2. Azopt eyedrops in the right eye b.i.d. 3. Klonopin 0.5 mg q. p.m. p.r.n. insomnia. 4. Synthroid 12.5 mcg daily. 5. Toprol-XL 50 mg in the morning and 100 mg in the evening or as described above in the discharge summary. 6. Multivitamin daily. 7. Sublingual nitroglycerin p.r.n. 8. Zofran 4 mg p.r.n. 9. Crestor 5 mg q. p.m. 10. Sucralfate p.r.n. LABORATORIES AND IMAGING: Reviewed and summarized above. CONDITION AT DISCHARGE: Stable. PHYSICAL EXAMINATION: VITAL SIGNS: Blood pressure 124/65. Pulse 61. Afebrile. Room air saturation 97%. HEENT: Unremarkable, except male-pattern baldness. NECK: Without JVD or carotid bruits. CHEST: Clear. HEART: Sounds are normal. ABDOMEN: Soft. Nontender. Normal bowel sounds. No guarding or rebound. No organomegaly. EXTREMITIES: No edema. NEUROLOGIC: Intact. FOLLOWUP: The patient is advised to see his PCP and/or his Instrumental Music Teacher, Dr. Fontana, and his Medical Assistant Ob Gyn, Dr. Poole, in the next 1-2 weeks. CODE STATUS: DNR. Time required to complete this entire discharge, chart review, patient education, dictation: 60 minutes. cc: MD Evens Tesfaye MD TD: 12/06/2017 11:04 MTDD
== END 2017-12-03 15:00 | disposition home or self-care (01) | DRG 390 ==
LOC: EDSEX → EDUNIT# → EDBD → ED 15:11 → MS2 17:25 → OBS 18:26 → OBSVTOIN 19:49 → MS2 20:35 → OBS 20:35 → MS3 20:35 → UNDODISIN 12-03 15:00
PROVIDERS: ADMIT Internal Medicine; ATTEND Internal Medicine
DX: R07.89 Other chest pain (principal); K56.50 Intestinal adhesions [bands], unspecified as to partial versus complete obstruction; I25.119 Atherosclerotic heart disease of native coronary artery with unspecified angina pectoris; R00.8 Other abnormalities of heart beat; K21.9 Gastro-esophageal reflux disease without esophagitis; I49.3 Ventricular premature depolarization; N18.9 Chronic kidney disease, unspecified; N18.2 Chronic kidney disease, stage 2 (mild); D46.9 Myelodysplastic syndrome, unspecified; E03.9 Hypothyroidism, unspecified; Z87.11 Personal history of peptic ulcer disease; R53.83 Other fatigue; T44.7X5A Adverse effect of beta-adrenoreceptor antagonists, initial encounter; Y92.230 Patient room in hospital as the place of occurrence of the external cause; Z86.79 Personal history of other diseases of the circulatory system; I27.20 Pulmonary hypertension, unspecified; Z66 Do not resuscitate; Z95.5 Presence of coronary angioplasty implant and graft; Z95.1 Presence of aortocoronary bypass graft; Z79.899 Other long term (current) drug therapy; Z79.82 Long term (current) use of aspirin
CPT/HCPCS: 36415; 71045; 74018; 74176; 80048; 80053; 80061; 82550; 82553; 83690; 83721; 83735; 84443; 84484; 85025; 85610; 93005; 93306; 96374; 96375; 99284; 99285

== ENCOUNTER 2018-03-04 14:35 | Outpatient (CLI) | payer MEDICARE, BC ==
--- NOTE | 2018-03-04 16:04 | XRAY Report ---
Reason: LUNG CONGESTION Procedure Date: 03/04/2018 Accession Number: [id number] / [id number] Procedure: XR - Chest 2 View X-Ray CPT Code: 41466 FULL RESULT: EXAM: CHEST RADIOGRAPHY EXAM DATE: 03/04/2018 02:43 PM. CLINICAL HISTORY: Lung congestion. COMPARISON: CHEST 1 VIEW 12/01/2017 3:18 PM. TECHNIQUE: 2 views. FINDINGS: Lungs/Pleura: No focal opacities evident. No pleural effusion. No pneumothorax. Normal volumes. Mediastinum: Heart and mediastinal contours are stable. Other: Stable appearance of sternotomy wires, CABG changes and surgical clips in the right upper quadrant. IMPRESSION: No pneumonia. RADIA
== END 2018-03-04 14:36 | disposition home or self-care (01) ==
LOC: DI 14:35
PROVIDERS: ATTEND Nurse Practitioner Adult Health
DX: D46.9 Myelodysplastic syndrome, unspecified (principal); R09.89 Other specified symptoms and signs involving the circulatory and respiratory systems; R05 Cough; R50.9 Fever, unspecified
CPT/HCPCS: 71046

== ENCOUNTER 2018-04-12 13:32 | Emergency (ER) | payer MEDICARE, BC ==
[2018-04-12 13:55] LABS: BILIRUBIN,URINE NEGATIVE (NEGATIVE); GLUCOSE, URINE (UA) NEGATIVE (NEGATIVE); KETONES,URINE (UA) NEGATIVE (NEGATIVE); LEUKOCYTE ESTERASE, URINE NEGATIVE (NEGATIVE); NITRITE,URINE NEGATIVE (NEGATIVE); OCCULT BLOOD,URINE TRACE-INTA (NEGATIVE); PH,URINE 6.5 PH (5.0-7.5); PROTEIN,URINE NEGATIVE (NEGATIVE); UROBILINOGEN,URINE 0.2 (NORMAL) E.U./dL (NORMAL)
[2018-04-12 13:57] LABS: CLARITY,URINE CLEAR (CLEAR)
--- NOTE | 2018-04-12 14:19 | XRAY Report ---
Reason: Chest Pain Procedure Date: 04/12/2018 Accession Number: [id number] / [id number] Procedure: XR - Chest 1 View X-Ray CPT Code: 01411 FULL RESULT: EXAM: CHEST RADIOGRAPHY EXAM DATE: 04/12/2018 02:14 PM. CLINICAL HISTORY: Chest Pain. COMPARISON: CHEST 2 VIEW 03/04/2018 2:39 PM. TECHNIQUE: 1 view. FINDINGS: Lungs/Pleura: No definite localized infiltrate, consolidation, effusion, or pneumothorax. Mediastinum: Within exam limitations, the cardiomediastinal contour is normal. Upper lobe vessels not distended. Other: Status post median sternotomy. IMPRESSION: No acute disease. RADIA
[2018-04-12 15:00] LABS: BASOPHILS % (AUTO) 1.9 %; EOSINOPHILS % (AUTO) 1.9 %; HGB - HEMOGLOBIN 11.9 g/dL (14.0-18.0); LYMPHOCYTES % (AUTO) 22.3 %; MEAN CORPUSCULAR HEMOGLOBIN 31.5 pg (27.0-31.0); MEAN CORPUSCULAR VOLUME 92.7 fL (80.0-94.0); MEAN PLATELET VOLUME 7.6 fL (7.4-11.4); MONOCYTES % (AUTO) 15.1 %; NEUTROPHILS % (AUTO) 58.8 %; PLT - PLATELET COUNT 159 10^3/uL (130-450); RED BLOOD COUNT 3.79 10^6/uL (4.70-6.10); RED CELL DISTRIBUTION WIDTH 15.3 % (12.0-15.0); WHITE BLOOD COUNT 2.9 x10^3/uL (4.8-10.8)
[2018-04-12 15:03] LABS: ABNORMAL LYMPHS % (MANUAL) 0 %
[2018-04-12 15:10] LABS: ALBUMIN 3.9 g/dL (3.2-5.5); ALBUMIN/GLOBULIN RATIO 1.3 (1.0-2.2); BILIRUBIN,TOTAL 0.8 mg/dL (0.2-1.0); CALCIUM 8.6 mg/dL (8.5-10.3); CREATININE 1.3 mg/dL (0.6-1.2)
[2018-04-12 15:56] LABS: BAND NEUTROPHILS % (MANUAL) 3 %; BASOPHILS % (MANUAL) 1 %; EOSINOPHILS # (MANUAL) 0.1 10^3/uL (0-0.7); LYMPHOCYTES # (MANUAL) 0.6 10^3/uL (1.5-3.5); LYMPHOCYTES % (MANUAL) 18 %; MONOCYTES # (MANUAL) 0.6 10^3/uL (0.0-1.0); NEUTROPHILS # (MANUAL) 1.7 10^3/uL (1.5-6.6); NEUTROPHILS % (MANUAL) 55 %
[2018-04-12 15:57] LABS: DIFFERENTIAL COMMENT MANUAL DIFFERENTIAL; PLATELET ESTIMATE, MANUAL NORMAL (130-450,000) (NORMAL); PLATELET MORPHOLOGY NORMAL APPEARANCE (NORMAL); RBC MORPHOLOGY (MULTIPLE) NORMAL APPEARANCE (NORMAL)
[2018-04-12] MEDS ORDERED: SODIUM CHLORIDE 0.9% 500 ML IV ONE (16:12)
--- NOTE | 2018-04-12 16:17 | ED Physician Documentation ---
History of Present Illness - Stated complaint Stated Complaint: DIZZY, HIGH BLOOD PRESSURE - Chief complaint Chief Complaint: General - History obtained from History obtained from: Patient - History of Present Illness Timing: Today Pain level max: 0 Pain level now: 0 Improved by: rest Worsened by: movement - Additonal information Additional information: 88 year old male with myelodysplastic syndrome. States he has had vertigo in the past. States today he felt like the room was spinning worse than usual. He was in the [facility] and was sent here for evaluation. No focal neurological deficits. No difficulty with speech. His blood pressure was noted to be higher than usual as well. No chest pain, no dyspnea. No abdominal pain. No nausea or vomiting. Currently feels better Review of Systems Ten Systems: 10 systems reviewed and negative Constitutional: denies: Fever, Chills Eyes: denies: Decreased vision, Photophobia Ears: denies: Ear pain Nose: denies: Rhinorrhea / runny nose, Congestion Throat: denies: Sore throat Cardiac: denies: Chest pain / pressure Respiratory: denies: Cough GI: denies: Abdominal Pain, Nausea, Vomiting, Diarrhea Skin: denies: Rash Musculoskeletal: denies: Neck pain, Back pain Neurologic: denies: Focal weakness, Numbness, Confused, Altered mental status, Headache PD PAST MEDICAL HISTORY - Past Medical History Past Medical History: Yes Cardiovascular: Coronary artery disease, Angina, Atrial fibrillation, Murmur, Arrhythmia Respiratory: Pneumonia, Sleep apnea Neuro: None Endocrine/Autoimmune: HyPOthyroidism GI: GERD, Ulcers, Hiatal hernia, Colon polyps, Hemorrhoids, Pancreatitis, Diverticulitis, Cholelithiasis : Benign prostate hypertrophy, Frequency HEENT: Glaucoma, Chronic hearing loss Psych: Depression, Anxiety, Panic attacks Musculoskeletal: Osteoarthritis Derm: None, Rosacea - Past Surgical History Past Surgical History: Yes General: Cholecystectomy, Appendectomy, Colonoscopy, EGD Ortho: Arthroscopic surgery Cardiovascular: CABG, Coronary stent HEENT: Cataracts, Tonsil/Adenoidectomy - Present Medications Home Medications: Ambulatory Orders Medication Instructions Recorded Confirmed Aspirin 81 mg PO DAILY 02/07/13 04/12/18 Brinzolamide 1% Ophth Drops [Azopt 1 drops RIGHTEYE BID 07/25/16 04/12/18 1% Ophth Drops] Levothyroxine Sodium [Synthroid] 12.5 mcg PO DAILY 07/25/16 04/12/18 Nitroglycerin [Nitrostat] 0.3 mg SL ONCE PRN 07/25/16 04/12/18 Metoprolol Succinate [Toprol Xl] 60 mg PO DAILY 02/27/17 04/12/18 Ondansetron HCl [Zofran] 4 mg PO Q4H PRN 03/23/17 04/12/18 Multivitamin [Multiple Vitamins] 1 each PO DAILY 11/30/17 04/12/18 Rosuvastatin Calcium [Crestor] 5 mg PO QPM 11/30/17 04/12/18 Metoprolol Succinate [Toprol Xl] 50 mg PO QPM 12/02/17 04/12/18 raNITIdine HCl [Ranitidine HCl] 150 mg PO BID 01/22/18 04/12/18 clonazePAM [KlonoPIN] 0.5 mg PO QPM PRN #30 tablet 03/11/18 04/12/18 Pantoprazole [Protonix] 40 mg PO DAILY #90 tablet 04/10/18 04/12/18 - Allergies Allergies/Adverse Reactions: Allergies Allergy/AdvReac Type Severity Reaction Status Date / Time lorazepam [From Ativan] Allergy Intermediate Nausea Verified 04/12/18 14:43 amylase [From Creon] Allergy Edema Verified 04/12/18 14:43 lipase [From Creon] Allergy Edema Verified 04/12/18 14:43 protease [From Creon] Allergy Edema Verified 04/12/18 14:43 ciprofloxacin HCl * AdvReac Intermediate confusion Verified 04/12/18 14:43 [From Cipro] codeine AdvReac Intermediate Cramps Verified 04/12/18 14:43 levofloxacin [From Levaquin] AdvReac Intermediate confusion Verified 04/12/18 14:43 Sulfa (Sulfonamide AdvReac Intermediate Nausea Verified 04/12/18 14:43 Antibiotics) - Social History Does the pt smoke?: No Smoking Status: Former smoker Does the pt drink ETOH?: No Does the pt have substance abuse?: No - Immunizations Immunizations are current?: Yes - POLST Patient has POLST: Yes PD ED PE NORMAL - Vitals Vital signs reviewed: Yes - General General: Alert and oriented X 3, No acute distress, Well developed/nourished - HEENT HEENT: PERRL, Moist mucous membranes - Neck Neck: Supple, no meningeal sign - Cardiac Cardiac: RRR, Strong equal pulses - Respiratory Respiratory: No respiratory distress, Clear bilaterally - Abdomen Abdomen: Soft, Non tender, Non distended - Derm Derm: Warm and dry, No rash - Extremities Extremities: No edema - Neuro Neuro: Alert and oriented X 3, 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, No motor deficit, No sensory deficit, Normal speech, Other (NIHSS 0 at 1620) Eye Opening: Spontaneous Motor: Obeys Commands Verbal: Oriented GCS Score: 15 - Psych Psych: Normal mood, Normal affect Results - Vitals Vitals: Vital Signs - 24 hr 04/12/18 04/12/18 04/12/18 13:36 14:45 16:20 Temperature 36.6 C Heart Rate 58 L 59 L 61 Respiratory 16 18 11 L Rate Blood Pressure 178/68 H 160/79 H 143/75 H O2 Saturation 100 100 98 04/12/18 17:26 Temperature Heart Rate 67 Respiratory 14 Rate Blood Pressure 180/79 H O2 Saturation 100 Oxygen O2 Source Room air - EKG (time done) 1433 Rate: Rate (enter#) (56) Rhythm: NSR [place]: Normal Intervals: Normal [place] QRS: Normal Ischemia: Normal ST segments, Q waves (III, aVF) - Labs Labs: Laboratory Tests 04/12/18 04/12/18 04/12/18 13:50 14:27 14:27 WBC 2.9 L RBC 3.79 L Hgb 11.9 L Hct 35.1 L MCV 92.7 MCH 31.5 H MCHC 34.0 RDW 15.3 H Plt Count 159 MPV 7.6 Neut # (Auto) Not Reportable Lymph # (Auto) Not Reportable [place] # (Auto) Not Reportable Eos # (Auto) Not Reportable Baso # (Auto) Not Reportable Absolute Nucleated RBC Not Reportable Total Counted 100 Band Neuts % (Manual) 3 Reactive Lymphs % (Man) 1 Abnorm Lymph % (Manual) 0 Nucleated RBC % Not Reportable Neutrophils # (Manual) 1.7 Lymphocytes # (Manual) 0.6 L Monocytes # (Manual) 0.6 Eosinophils # (Manual) 0.1 Basophils # (Manual) 0.0 Differential Comment MANUAL DIFFERENTIAL Platelet Estimate NORMAL (130-450,000) Platelet Morphology NORMAL APPEARANCE RBC Morph Micro Appear NORMAL APPEARANCE Sodium 130 L Potassium 4.0 Chloride 99 L Carbon Dioxide 23 Anion Gap 8.0 BUN 22 H Creatinine 1.3 H Estimated GFR (MDRD) 52 L Glucose 96 Calcium 8.6 Total Bilirubin 0.8 AST 15 ALT 15 Alkaline Phosphatase 73 Troponin I Total Protein 7.0 Albumin 3.9 Globulin 3.1 Albumin/Globulin Ratio 1.3 Lipase 32 Urine Color YELLOW Urine Clarity CLEAR Urine pH 6.5 Ur Specific [place] <=1.005 Urine Protein NEGATIVE Urine Glucose (UA) NEGATIVE Urine Ketones NEGATIVE Urine Occult Blood TRACE-INTA Urine Nitrite NEGATIVE Urine Bilirubin NEGATIVE Urine Urobilinogen 0.2 (NORMAL) Ur Leukocyte Esterase NEGATIVE Ur Microscopic Review NOT INDICATED Urine Culture Comments NOT INDICATED 04/12/18 14:27 WBC RBC Hgb Hct MCV MCH MCHC RDW Plt Count MPV Neut # (Auto) Lymph # (Auto) [place] # (Auto) Eos # (Auto) Baso # (Auto) Absolute Nucleated RBC Total Counted Band Neuts % (Manual) Reactive Lymphs % (Man) Abnorm Lymph % (Manual) Nucleated RBC % Neutrophils # (Manual) Lymphocytes # (Manual) Monocytes # (Manual) Eosinophils # (Manual) Basophils # (Manual) Differential Comment Platelet Estimate Platelet Morphology RBC Morph Micro Appear Sodium Potassium Chloride Carbon Dioxide Anion Gap BUN Creatinine Estimated GFR (MDRD) Glucose Calcium Total Bilirubin AST ALT Alkaline Phosphatase Troponin I < 0.04 Total Protein Albumin Globulin Albumin/Globulin Ratio Lipase Urine Color Urine Clarity Urine pH Ur Specific [place] Urine Protein Urine Glucose (UA) Urine Ketones Urine Occult Blood Urine Nitrite Urine Bilirubin Urine Urobilinogen Ur Leukocyte Esterase Ur Microscopic Review Urine Culture Comments - Rads (name of study) cxr Radiology: Prelim report reviewed, EMP read contemporaneously, See rad report (no acute disease) PD MEDICAL DECISION MAKING - ED course Complexity details: reviewed results, re-evaluated patient, considered differential, d/w patient ED course: 88-year-old male with what sounds like vertigo earlier today. This is since resolved. Normal gait in the emergency department. Does feel better after a small amount of IV fluids. He is well-appearing, nontoxic. Afebrile. No EKG changes. No acute laboratory abnormalities. Has chronic hyponatremia though slightly worse today. We will have him follow-up with his doctor for further evaluation and care. NIH stroke scale of 0. No evidence of stroke, tumor. Patient counseled regarding signs and symptoms for which I believe and urgent re-evaluation would be necessary. Patient with good understanding of and agreement to plan and is comfortable going home at this time This document was made in part using voice recognition software. While efforts are made to proofread this document, sound alike and grammatical errors may occur. Departure - Departure Disposition: 01 Home, Self Care Clinical Impression: Vertigo, Hyponatremia Condition: Good Instructions: ED Vertigo Unspecified Follow-Up: Evens Aguilar MD [Primary Care Provider] - Within 1 week Comments: Follow-up with your doctor for further care. Return if you worsen. Discharge Date/Time: 04/12/18 17:27
[2018-04-12 17:27] VITALS: BP 180/79
== END 2018-04-12 17:27 | disposition home or self-care (01) ==
LOC: ED 13:32
DX: R42 Dizziness and giddiness (principal); E87.1 Hypo-osmolality and hyponatremia; D46.9 Myelodysplastic syndrome, unspecified; I25.10 Atherosclerotic heart disease of native coronary artery without angina pectoris; E03.9 Hypothyroidism, unspecified; Z79.82 Long term (current) use of aspirin; Z95.1 Presence of aortocoronary bypass graft; Z95.5 Presence of coronary angioplasty implant and graft; Z87.891 Personal history of nicotine dependence
CPT/HCPCS: 71045; 80053; 81001; 81003; 83690; 84484; 85025; 87086; 93005; 96360; 99284

== ENCOUNTER 2018-06-24 14:25 | Outpatient (CLI) | payer MEDICARE, BC ==
[2018-06-24 17:45] LABS: BASOPHILS % (AUTO) 1.6 %; EOSINOPHILS # (AUTO) 0.1 10^3/uL (0.0-0.7); EOSINOPHILS % (AUTO) 3.8 %; HGB - HEMOGLOBIN 12.3 g/dL (14.0-18.0); LYMPHOCYTES # (AUTO) 0.9 10^3/uL (1.5-3.5); LYMPHOCYTES % (AUTO) 38.9 %; MEAN CORPUSCULAR HEMOGLOBIN 31.3 pg (27.0-31.0); MEAN CORPUSCULAR HGB CONC 33.1 g/dL (32.0-36.0); MEAN CORPUSCULAR VOLUME 94.4 fL (80.0-94.0); MONOCYTES # (AUTO) 0.1 10^3/uL (0.0-1.0); MONOCYTES % (AUTO) 2.4 %; NEUTROPHILS # (AUTO) 1.2 10^3/uL (1.5-6.6); NEUTROPHILS % (AUTO) 53.3 %; PLT - PLATELET COUNT 156 10^3/uL (130-450); RED BLOOD COUNT 3.93 10^6/uL (4.70-6.10); RED CELL DISTRIBUTION WIDTH 15.7 % (12.0-15.0); WHITE BLOOD COUNT 2.3 x10^3/uL (4.8-10.8)
[2018-06-24 17:50] LABS: BILIRUBIN,URINE NEGATIVE (NEGATIVE); GLUCOSE, URINE (UA) NEGATIVE (NEGATIVE); KETONES,URINE (UA) NEGATIVE (NEGATIVE); LEUKOCYTE ESTERASE, URINE NEGATIVE (NEGATIVE); NITRITE,URINE NEGATIVE (NEGATIVE); OCCULT BLOOD,URINE NEGATIVE (NEGATIVE); PROTEIN,URINE NEGATIVE (NEGATIVE); UROBILINOGEN,URINE 0.2 (NORMAL) E.U./dL (NORMAL)
[2018-06-24 17:56] LABS: CLARITY,URINE CLEAR (CLEAR)
[2018-06-24 18:16] LABS: ALBUMIN/GLOBULIN RATIO 1.6 (1.0-2.2); BILIRUBIN,TOTAL 0.8 mg/dL (0.2-1.0); CALCIUM 8.4 mg/dL (8.5-10.3); CREATININE 1.2 mg/dL (0.6-1.2); TOTAL PROTEIN 6.5 g/dL (6.7-8.2)
[2018-06-24 21:09] LABS: BACTERIA,URINE None Seen /HPF (None Seen); RBC,URINE 0-5 /HPF (0-5); SQUAMOUS EPITHELIAL CELL,UR NONE SEEN (<= Few)
[2018-06-24 21:24] LABS: PLATELET ESTIMATE, MANUAL NORMAL (130-450,000) (NORMAL); PLATELET MORPHOLOGY NORMAL APPEARANCE (NORMAL)
== END 2018-06-24 14:26 | disposition home or self-care (01) ==
LOC: LAB.F 14:25
PROVIDERS: ATTEND Internal Medicine
DX: R10.30 Lower abdominal pain, unspecified (principal); M54.5 Low back pain; R35.0 Frequency of micturition; M79.18 Myalgia, other site
CPT/HCPCS: 36415; 80053; 81001; 82150; 82550; 83690; 85025; 87086

== ENCOUNTER 2018-06-25 15:00 | Emergency (ER) | payer MEDICARE, BC ==
--- NOTE | 2018-06-25 15:32 | ED Physician Documentation ---
History of Present Illness - Stated complaint Stated Complaint: BACK/ABD PX - Chief complaint Chief Complaint: General - History obtained from History obtained from: Patient, Family - History of Present Illness Timing: How many weeks ago (2) Pain level max: 8 Pain level now: 8 - Additonal information Additional information: myelodysplastic syndrome. Epigastric pain x 2 weeks. worse today. radiates around the back. No changes with eating. Nothing makes it better or worse. States had bloodwork done yesterday and is scheduled for a CT today, came here instead. Review of Systems Ten Systems: 10 systems reviewed and negative Constitutional: denies: Fever, Chills Respiratory: denies: Cough GI: denies: Nausea, Vomiting, Diarrhea : denies: Incontinent Skin: denies: Rash Musculoskeletal: denies: Neck pain Neurologic: denies: Focal weakness, Numbness, Headache PD PAST MEDICAL HISTORY - Past Medical History Cardiovascular: Coronary artery disease, Angina, Atrial fibrillation, Murmur, Arrhythmia Respiratory: Pneumonia, Sleep apnea Neuro: None Endocrine/Autoimmune: HyPOthyroidism GI: GERD, Ulcers, Hiatal hernia, Colon polyps, Hemorrhoids, Pancreatitis, Diverticulitis, Cholelithiasis : Benign prostate hypertrophy, Frequency HEENT: Glaucoma, Chronic hearing loss Psych: Depression, Anxiety, Panic attacks Musculoskeletal: Osteoarthritis Derm: None, Rosacea - Past Surgical History Past Surgical History: Yes General: Cholecystectomy, Appendectomy, Colonoscopy, EGD Ortho: Arthroscopic surgery Cardiovascular: CABG, Coronary stent HEENT: Cataracts, Tonsil/Adenoidectomy - Present Medications Home Medications: Ambulatory Orders Medication Instructions Recorded Confirmed Aspirin 81 mg PO DAILY 02/07/13 06/25/18 Brinzolamide 1% Ophth Drops [Azopt 1 drops RIGHTEYE BID 07/25/16 06/25/18 1% Ophth Drops] Levothyroxine Sodium [Synthroid] 12.5 mcg PO DAILY 07/25/16 06/25/18 Nitroglycerin [Nitrostat] 0.3 mg SL ONCE PRN 07/25/16 06/25/18 Metoprolol Succinate [Toprol Xl] 60 mg PO DAILY 02/27/17 06/25/18 Ondansetron HCl [Zofran] 4 mg PO Q4H PRN 03/23/17 06/25/18 Multivitamin [Multiple Vitamins] 1 each PO DAILY 11/30/17 06/25/18 Rosuvastatin Calcium [Crestor] 5 mg PO QPM 11/30/17 06/25/18 Metoprolol Succinate [Toprol Xl] 50 mg PO QPM 12/02/17 06/25/18 raNITIdine HCl [Ranitidine HCl] 150 mg PO BID 01/22/18 06/25/18 clonazePAM [KlonoPIN] 0.5 mg PO QPM PRN #30 tablet 03/11/18 06/25/18 Pantoprazole [Protonix] 40 mg PO DAILY #90 tablet 04/10/18 06/25/18 Oxycodone HCl/Acetaminophen 1 - 2 each PO Q6H PRN #20 tablet 06/25/18 [Percocet 5-325 mg Tablet] - Allergies Allergies/Adverse Reactions: Allergies Allergy/AdvReac Type Severity Reaction Status Date / Time lorazepam [From Ativan] Allergy Intermediate Nausea Verified 06/25/18 15:10 amylase [From Creon] Allergy Edema Verified 06/25/18 15:10 lipase [From Creon] Allergy Edema Verified 06/25/18 15:10 protease [From Creon] Allergy Edema Verified 06/25/18 15:10 ciprofloxacin HCl * AdvReac Intermediate confusion Verified 06/25/18 15:10 [From Cipro] codeine AdvReac Intermediate Cramps Verified 06/25/18 15:10 levofloxacin [From Levaquin] AdvReac Intermediate confusion Verified 06/25/18 15:10 Sulfa (Sulfonamide AdvReac Intermediate Nausea Verified 06/25/18 15:10 Antibiotics) - Social History Does the pt smoke?: No Smoking Status: Former smoker Does the pt drink ETOH?: No Does the pt have substance abuse?: No - Immunizations Immunizations are current?: Yes - POLST Patient has POLST: Yes PD ED PE NORMAL - Vitals Vital signs reviewed: Yes - General General: Alert and oriented X 3, No acute distress, Well developed/nourished - HEENT HEENT: Moist mucous membranes - Neck Neck: Supple, no meningeal sign - Cardiac Cardiac: RRR, No murmur - Respiratory Respiratory: Clear bilaterally - Abdomen Abdomen: Soft, Non distended, Other (TTP epigastric, no peritoneal.) - Back Back: No CVA TTP, No spinal TTP - Derm Derm: Warm and dry - Extremities Extremities: No edema - Neuro Neuro: Alert and oriented X 3, No motor deficit, No sensory deficit - Psych Psych: Normal mood, Normal affect Results - Vitals Vitals: Vital Signs - 24 hr 06/25/18 06/25/18 06/25/18 15:07 17:07 19:14 Temperature 36.2 C L Heart Rate 78 78 69 Respiratory 14 20 11 L Rate Blood Pressure 150/75 H 138/75 H 160/85 H O2 Saturation 100 100 96 06/25/18 19:45 Temperature Heart Rate 65 Respiratory 15 Rate Blood Pressure 143/73 H O2 Saturation 97 Oxygen O2 Source Room air - Labs Labs: Laboratory Tests 06/25/18 06/25/18 06/25/18 15:25 15:41 15:41 WBC 1.7 L* RBC 3.93 L Hgb 12.3 L Hct 36.7 L MCV 93.4 MCH 31.3 H MCHC 33.5 RDW 15.7 H Plt Count 146 MPV 7.2 L Neut # (Auto) Not Reportable Lymph # (Auto) Not Reportable [place] # (Auto) Not Reportable Eos # (Auto) Not Reportable Baso # (Auto) Not Reportable Absolute Nucleated RBC Not Reportable Total Counted 100 Band Neuts % (Manual) 3 Abnorm Lymph % (Manual) 0 Nucleated RBC % Not Reportable Neutrophils # (Manual) 1.1 L Lymphocytes # (Manual) 0.5 L Monocytes # (Manual) 0.0 Eosinophils # (Manual) 0.0 Basophils # (Manual) 0.0 Differential Comment MANUAL DIFFERENTIAL Manual Slide Review Indicated WBC Morphology NORMAL APPEARANCE Platelet Estimate NORMAL (130-450,000) Platelet Morphology NORMAL APPEARANCE RBC Morph Micro Appear 1+ ANISOCYTOSIS Sodium 134 L Potassium 4.1 Chloride 104 Carbon Dioxide 19 L Anion Gap 11.0 BUN 15 Creatinine 1.2 Estimated GFR (MDRD) 57 L Glucose 104 H Calcium 8.9 Total Bilirubin 0.9 AST 20 ALT 17 Alkaline Phosphatase 73 Troponin I Total Protein 6.9 Albumin 4.1 Globulin 2.8 Albumin/Globulin Ratio 1.5 Lipase 36 Urine Color YELLOW Urine Clarity CLEAR Urine pH 6.5 Ur Specific [place] <=1.005 Urine Protein NEGATIVE Urine Glucose (UA) NEGATIVE Urine Ketones NEGATIVE Urine Occult Blood NEGATIVE Urine Nitrite NEGATIVE Urine Bilirubin NEGATIVE Urine Urobilinogen 0.2 (NORMAL) Ur Leukocyte Esterase NEGATIVE Ur Microscopic Review NOT INDICATED Urine Culture Comments NOT INDICATED 06/25/18 15:41 WBC RBC Hgb Hct MCV MCH MCHC RDW Plt Count MPV Neut # (Auto) Lymph # (Auto) [place] # (Auto) Eos # (Auto) Baso # (Auto) Absolute Nucleated RBC Total Counted Band Neuts % (Manual) Abnorm Lymph % (Manual) Nucleated RBC % Neutrophils # (Manual) Lymphocytes # (Manual) Monocytes # (Manual) Eosinophils # (Manual) Basophils # (Manual) Differential Comment Manual Slide Review WBC Morphology Platelet Estimate Platelet Morphology RBC Morph Micro Appear Sodium Potassium Chloride Carbon Dioxide Anion Gap BUN Creatinine Estimated GFR (MDRD) Glucose Calcium Total Bilirubin AST ALT Alkaline Phosphatase Troponin I < 0.04 Total Protein Albumin Globulin Albumin/Globulin Ratio Lipase Urine Color Urine Clarity Urine pH Ur Specific [place] Urine Protein Urine Glucose (UA) Urine Ketones Urine Occult Blood Urine Nitrite Urine Bilirubin Urine Urobilinogen Ur Leukocyte Esterase Ur Microscopic Review Urine Culture Comments - Rads (name of study) CT abd/pelvis Radiology: Prelim report reviewed, EMP read contemporaneously, See rad report (No acute solid or hollow viscus organ abnormalities to account for the patient's presentation. 2. There is colonic diverticulosis without evidence of diverticulitis. 3. There is cardiomegaly. There are coronary artery calcifications. 4. There is increased sclerosis of the T11 vertebral body. Differential considerations include primary bone tumor, metastatic lesion, or metabolic bone disease. 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 Likely that this is what is causing his pain. No acute laboratory abnormalities, no ACS. Pain well controlled. Will prescribe pain medication for home and follow-up with his doctor. No neurological abnormalities. No incontinence or inability to urinate. No saddle anesthesia. Patient counseled regarding signs and symptoms for which I believe and urgent re-evaluation would be necessary. Patient with good understanding of and agreement to plan and is comfortable going home at this time This document was made in part using voice recognition software. While efforts are made to proofread this document, sound alike and grammatical errors may occur. Departure - Departure Disposition: 01 Home, Self Care Clinical Impression: Back pain Qualifiers: Back pain location: thoracic back pain Chronicity: acute Back pain laterality: bilateral Qualified Code(s): M54.6 - Pain in thoracic spine Condition: Good Instructions: ED Neck Back Pain General Follow-Up: Evens Aguilar MD [Primary Care Provider] - Within 3 Days Prescriptions: Oxycodone HCl/Acetaminophen [Percocet 5-325 mg Tablet] 1 - 2 each PO Q6H PRN #20 tablet PRN Reason: pain Comments: You may have a bony tumor or metastases in your thoracic spine, T11. This needs further follow-up with your doctor for confirmation. Do not drink alcohol or drive while on narcotic pain medicine. Note that many narcotic pain relievers also contain tylenol/acetaminophen. Please ensure that your total dose of acetaminophen from all sources does not exceed 3 grams (3000mg) per day. You may constipated on this medication, take a stool softener such as "Colace" twice a day while you are on it. Also recommend a [id number] laxative such as senna or MiraLAX any day that you do not have a bowel movement. If you received narcotic pain medication in the emergency department, do not drive or operate machinery for the next 24 hours. Discharge Date/Time: 06/25/18 19:59
[2018-06-25 15:39] LABS: BILIRUBIN,URINE NEGATIVE (NEGATIVE); GLUCOSE, URINE (UA) NEGATIVE (NEGATIVE); KETONES,URINE (UA) NEGATIVE (NEGATIVE); LEUKOCYTE ESTERASE, URINE NEGATIVE (NEGATIVE); NITRITE,URINE NEGATIVE (NEGATIVE); OCCULT BLOOD,URINE NEGATIVE (NEGATIVE); PH,URINE 6.5 PH (5.0-7.5); PROTEIN,URINE NEGATIVE (NEGATIVE); UROBILINOGEN,URINE 0.2 (NORMAL) E.U./dL (NORMAL)
[2018-06-25 15:40] LABS: CLARITY,URINE CLEAR (CLEAR)
[2018-06-25] MEDS ORDERED: MORPHINE 2 MG/ML SYRINGE IVP STA (15:40)
[2018-06-25] MEDS ORDERED: ONDANSETRON 4 MG/2 ML VIAL IVP STA (15:40)
[2018-06-25] MEDS ORDERED: SODIUM CHLORIDE 0.9% 1,000 ML IV ONE (15:41)
[2018-06-25 15:47] LABS: BASOPHILS % (AUTO) 1.3 %; EOSINOPHILS % (AUTO) 2.4 %; HGB - HEMOGLOBIN 12.3 g/dL (14.0-18.0); LYMPHOCYTES % (AUTO) 28.5 %; MEAN CORPUSCULAR HEMOGLOBIN 31.3 pg (27.0-31.0); MEAN CORPUSCULAR HGB CONC 33.5 g/dL (32.0-36.0); MEAN CORPUSCULAR VOLUME 93.4 fL (80.0-94.0); MEAN PLATELET VOLUME 7.2 fL (7.4-11.4); MONOCYTES % (AUTO) 2.7 %; NEUTROPHILS % (AUTO) 65.1 %; PLT - PLATELET COUNT 146 10^3/uL (130-450); RED BLOOD COUNT 3.93 10^6/uL (4.70-6.10); RED CELL DISTRIBUTION WIDTH 15.7 % (12.0-15.0)
[2018-06-25] MEDS ORDERED: IOVERSOL 320 100 ML VIAL IVP ONE ×2 (15:50→16:56)
[2018-06-25 15:52] LABS: WHITE BLOOD COUNT 1.7 x10^3/uL (4.8-10.8)
[2018-06-25 15:53] LABS: ABNORMAL LYMPHS % (MANUAL) 0 %
[2018-06-25 15:54] LABS: ALBUMIN 4.1 g/dL (3.2-5.5); ALBUMIN/GLOBULIN RATIO 1.5 (1.0-2.2); BILIRUBIN,TOTAL 0.9 mg/dL (0.2-1.0); CALCIUM 8.9 mg/dL (8.5-10.3); CREATININE 1.2 mg/dL (0.6-1.2); TOTAL PROTEIN 6.9 g/dL (6.7-8.2)
[2018-06-25 16:06] LABS: BAND NEUTROPHILS % (MANUAL) 3 %; DIFFERENTIAL COMMENT MANUAL DIFFERENTIAL; LYMPHOCYTES # (MANUAL) 0.5 10^3/uL (1.5-3.5); LYMPHOCYTES % (MANUAL) 31 %; NEUTROPHILS # (MANUAL) 1.1 10^3/uL (1.5-6.6); NEUTROPHILS % (MANUAL) 63 %; PLATELET ESTIMATE, MANUAL NORMAL (130-450,000) (NORMAL); PLATELET MORPHOLOGY NORMAL APPEARANCE (NORMAL); RBC MORPHOLOGY (MULTIPLE) 1+ ANISOCYTOSIS (NORMAL)
[2018-06-25] MEDS ORDERED: HYOSCYAMINE SL 0.125 MG TABLET SL STA (16:36)
[2018-06-25] MEDS ORDERED: MAG HYDROX/AL HYDROX/SIMETH 30 ML UDC PO STA (16:36)
[2018-06-25] MEDS ORDERED: SUCRALFATE 1 GM/10 ML UDC PO STA (16:36)
[2018-06-25] MEDS: LIDOCAINE VISCOUS 2% 15 ML UDC MM STA ×2 (16:44→16:49)
--- NOTE | 2018-06-25 16:54 | XRAY Report ---
Reason: chest pain Procedure Date: 06/25/2018 Accession Number: [id number] / [id number] Procedure: XR - Chest 1 View X-Ray CPT Code: 71709 FULL RESULT: EXAM: CHEST RADIOGRAPHY EXAM DATE: 06/25/2018 04:39 PM. CLINICAL HISTORY: Chest pain. COMPARISON: CHEST 1 VIEW 04/12/2018 2:00 PM. TECHNIQUE: 1 view. FINDINGS: Lungs/Pleura: No focal opacities evident. No pleural effusion. No pneumothorax. Mediastinum: Mild cardiomegaly. There is thoracic aortic tortuosity. Other: None. IMPRESSION: No acute intrathoracic plain film abnormality. [facility]
[2018-06-25] MEDS ORDERED: oxyCODONE 5 MG TABLET PO STA ×2 (17:10→18:53)
--- NOTE | 2018-06-25 17:11 | CT Report ---
Reason: epigastric/back pain Procedure Date: 06/25/2018 Accession Number: [id number] / [id number] Procedure: CT - Abdomen/Pelvis W CPT Code: FULL RESULT: EXAM: CT ABDOMEN AND PELVIS EXAM DATE: 06/25/2018 04:13 PM. CLINICAL HISTORY: Epigastric/back pain. COMPARISONS: ABDOMEN/PELVIS W/O 12/02/2017 10:47 AM. TECHNIQUE: Routine helical CT imaging was performed through the abdomen and pelvis. IV contrast: CE. Enteric contrast: No. Reconstructions: Coronal and sagittal. In accordance with CT protocol optimization, one or more of the following dose reduction techniques were utilized for this exam: automated exposure control, adjustment of mA and/or KV based on patient size, or use of iterative reconstructive technique. FINDINGS: Lung Bases: There is cardiomegaly. There are coronary artery calcifications. Liver: No focal hepatic abnormalities are seen. Gallbladder/Bile Ducts: The gallbladder is surgically absent. No significant bile duct dilatation. Spleen: Normal. Pancreas: Normal. Adrenal Glands: Normal. Kidneys: Normal. No masses or hydronephrosis. Peritoneal Cavity/Bowel: Stomach and small bowel demonstrate no acute abnormalities. There is colonic diverticulosis without evidence of diverticulitis. There is no evidence of appendicitis. There are no enlarged mesenteric or retroperitoneal lymph nodes. Pelvic Organs: Normal. The bladder and visualized pelvic organs are within normal limits. Vasculature: There is stable ectasia of the lower abdominal aorta above the aortic bifurcation. Bones: There is relative sclerosis of the T11 vertebral body. This is increased as compared to the previous examination. No evidence of fracture. Other: None. IMPRESSION: 1. No acute solid or hollow viscus organ abnormalities to account for the patient's presentation. 2. There is colonic diverticulosis without evidence of diverticulitis. 3. There is cardiomegaly. There are coronary artery calcifications. 4. There is increased sclerosis of the T11 vertebral body. Differential considerations include primary bone tumor, metastatic lesion, or metabolic bone disease. [facility]
[2018-06-25] MEDS ORDERED: KETOROLAC 30 MG/ML VIAL IVP STA (18:52)
[2018-06-25 19:46] VITALS: BP 143/73
== END 2018-06-25 19:59 | disposition home or self-care (01) ==
LOC: ED 15:00
DX: M54.6 Pain in thoracic spine (principal); R10.13 Epigastric pain; D46.9 Myelodysplastic syndrome, unspecified; K21.9 Gastro-esophageal reflux disease without esophagitis; K57.30 Diverticulosis of large intestine without perforation or abscess without bleeding; Z79.82 Long term (current) use of aspirin; Z87.891 Personal history of nicotine dependence
CPT/HCPCS: 36415; 71045; 74177; 80053; 81003; 83690; 84484; 85025; 93005; 96361; 96374; 96375; 99283; A9270; J2270; Q9967; 81001; 87086

== ENCOUNTER 2018-06-28 18:24 | Outpatient (CLI) | payer MEDICARE, BC | END 2018-06-28 18:25 | disposition short-term general hospital (02) | LOC: EMS 18:24 | PROVIDERS: ATTEND Surgery | DX: R50.9 Fever, unspecified (principal); R11.0 Nausea ==

== ENCOUNTER 2018-07-15 11:28 | Outpatient (CLI) | payer MEDICARE, BC | END 2018-07-15 11:29 | disposition home or self-care (01) | LOC: LAB.F 11:28 | PROVIDERS: ATTEND Internal Medicine | DX: R19.7 Diarrhea, unspecified (principal) | CPT/HCPCS: 87493 ==

== ENCOUNTER 2018-07-19 08:41 | Outpatient (CLI) | payer MEDICARE, BC ==
[2018-07-19 10:58] LABS: BASOPHILS # (AUTO) 0.1 10^3/uL (0.0-0.1); BASOPHILS % (AUTO) 1.7 %; EOSINOPHILS # (AUTO) 0.1 10^3/uL (0.0-0.7); EOSINOPHILS % (AUTO) 1.8 %; HGB - HEMOGLOBIN 12.7 g/dL (14.0-18.0); LYMPHOCYTES # (AUTO) 0.7 10^3/uL (1.5-3.5); LYMPHOCYTES % (AUTO) 16.6 %; MEAN CORPUSCULAR HEMOGLOBIN 31.3 pg (27.0-31.0); MONOCYTES # (AUTO) 0.5 10^3/uL (0.0-1.0); MONOCYTES % (AUTO) 11.4 %; NEUTROPHILS # (AUTO) 2.7 10^3/uL (1.5-6.6); NEUTROPHILS % (AUTO) 68.5 %; RED BLOOD COUNT 4.04 10^6/uL (4.70-6.10); RED CELL DISTRIBUTION WIDTH 15.6 % (12.0-15.0)
[2018-07-19 11:16] LABS: CHOL/HDL RATIO 3.3 (<5.0); CHOLESTEROL 170 mg/dL; HDL CHOLESTEROL 52 mg/dL; LDL CHOLESTEROL,CALCULATED 98 mg/dL; LDL/HDL RATIO 1.9 (<3.6); VLDL CHOLESTEROL 20 mg/dL
== END 2018-07-19 08:42 | disposition home or self-care (01) ==
LOC: LAB.F 08:41
PROVIDERS: ATTEND Internal Medicine
DX: J30.9 Allergic rhinitis, unspecified (principal); I25.9 Chronic ischemic heart disease, unspecified; K30 Functional dyspepsia; K21.9 Gastro-esophageal reflux disease without esophagitis; E78.5 Hyperlipidemia, unspecified; E03.9 Hypothyroidism, unspecified; R10.30 Lower abdominal pain, unspecified; M54.5 Low back pain; D61.818 Other pancytopenia; R35.0 Frequency of micturition
CPT/HCPCS: 36415; 80061; 83721; 84443; 85025

== ENCOUNTER 2018-09-06 08:12 | Outpatient (CLI) | payer MEDICARE ==
[2018-09-06] MEDS ORDERED: IOVERSOL 320 100 ML VIAL IVP ONE ×2 (08:25→09:37)
[2018-09-06] MEDS ORDERED: IOVERSOL 320 50 ML VIAL ONE (08:25)
[2018-09-06 09:13] LABS: BILIRUBIN,TOTAL 0.6 mg/dL (0.2-1.0); CALCIUM 8.9 mg/dL (8.5-10.3); CREATININE 1.2 mg/dL (0.6-1.2)
[2018-09-06 09:14] LABS: ALBUMIN 3.8 g/dL (3.2-5.5); ALBUMIN/GLOBULIN RATIO 1.3 (1.0-2.2); TOTAL PROTEIN 6.7 g/dL (6.7-8.2)
[2018-09-06 09:15] LABS: BASOPHILS % (AUTO) 0.9 %; EOSINOPHILS # (AUTO) 0.1 10^3/uL (0.0-0.7); EOSINOPHILS % (AUTO) 3.5 %; HGB - HEMOGLOBIN 12.1 g/dL (14.0-18.0); LYMPHOCYTES % (AUTO) 29.9 %; MEAN CORPUSCULAR HEMOGLOBIN 32.4 pg (27.0-31.0); MEAN CORPUSCULAR HGB CONC 32.6 g/dL (32.0-36.0); MEAN CORPUSCULAR VOLUME 99.2 fL (80.0-94.0); MEAN PLATELET VOLUME 9.7 fL (7.4-11.4); MONOCYTES # (AUTO) 0.5 10^3/uL (0.0-1.0); MONOCYTES % (AUTO) 16.7 %; NEUTROPHILS # (AUTO) 1.5 10^3/uL (1.5-6.6); NEUTROPHILS % (AUTO) 48.4 %; PLT - PLATELET COUNT 141 10^3/uL (130-450); RED BLOOD COUNT 3.74 10^6/uL (4.70-6.10); RED CELL DISTRIBUTION WIDTH 14.6 % (12.0-15.0); WHITE BLOOD COUNT 3.2 x10^3/uL (4.8-10.8)
--- NOTE | 2018-09-08 05:03 | CT Report ---
Reason: LOWER ABDOMINAL PAIN Procedure Date: 09/06/2018 Accession Number: [id number] / [id number] Procedure: CT - Abdomen/Pelvis W CPT Code: FULL RESULT: EXAM: CT ABDOMEN AND PELVIS EXAM DATE: 09/06/2018 09:36 AM. CLINICAL HISTORY: Lower abdominal pain. COMPARISONS: ABDOMEN/PELVIS W/ 06/25/2018 4:10 PM. TECHNIQUE: Routine helical CT imaging was performed through the abdomen and pelvis. IV contrast: OPTI 320, 90 mL. Enteric contrast: Present. Reconstructions: Coronal and sagittal. In accordance with CT protocol optimization, one or more of the following dose reduction techniques were utilized for this exam: automated exposure control, adjustment of mA and/or KV based on patient size, or use of iterative reconstructive technique. FINDINGS: ABDOMEN: Liver: No significant abnormality. Stomach/Distal Esophagus: Mild to moderate distended stomach, with ingested contrast material and other debris. Gallbladder: Prior cholecystectomy. Bile Ducts: No significant abnormality. Pancreas: No significant abnormality. Spleen: No significant abnormality. Kidneys: No suspicious solid appearing lesion. No hydronephrosis. Adrenals: No significant abnormality. Bowel: Severe sigmoid colonic and moderate to severe descending colon diverticulosis noted. There is no evidence of diverticulitis. Average amount of retained colonic fecal matter. No findings to indicate small bowel obstruction noted on this examination. Appendix: Normal. Lymph Nodes: No pathologically enlarged nodes. 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 No significant change when accounting for differences in technique. Moderate aortic and branch vessel atherosclerosis. Fluid: No significant free fluid. Abdominal Wall: No significant abnormality. Other: No significant abnormality. PELVIS: Prostate and Seminal Vesicles: There is moderate prostate hypertrophy. Bladder: Minimally distended without definite suspicious filling defect. Lymph Nodes: No pathologically enlarged nodes. Fluid: No significant free fluid. Other: None. BONES: As before, there is faint increased sclerosis of T11, which is of undetermined etiology. Moderate to severe osteopenia elsewhere. LOWER CHEST: Moderate to severe coronary vascular calcifications are noted. No significant consolidation or effusion. IMPRESSION: 1. No definite acute abdominal or pelvic abnormality noted. 2. Distal colonic diverticulosis without evidence of diverticulitis. 3. Moderate to severe aortic and branch vessel atherosclerosis. 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 4. Stable faint increased sclerosis of the T11 vertebral body again seen. RADIA
== END 2018-09-06 08:13 | disposition home or self-care (01) ==
LOC: DI 08:12
PROVIDERS: ATTEND Internal Medicine
DX: R10.30 Lower abdominal pain, unspecified (principal); K57.30 Diverticulosis of large intestine without perforation or abscess without bleeding; I70.0 Atherosclerosis of aorta; I71.4 Abdominal aortic aneurysm, without rupture; D61.818 Other pancytopenia
CPT/HCPCS: 36415; 74177; 80053; 82150; 83690; 85025; Q9967

== ENCOUNTER 2018-12-26 14:18 | Outpatient (CLI) | payer MEDICARE, BC ==
[2018-12-26 15:21] LABS: CALCIUM 8.5 mg/dL (8.5-10.3); CREATININE 1.6 mg/dL (0.6-1.2)
== END 2018-12-26 14:19 | disposition home or self-care (01) ==
LOC: DI 14:18
PROVIDERS: ATTEND Internal Medicine
DX: R00.1 Bradycardia, unspecified (principal); E78.5 Hyperlipidemia, unspecified; I25.9 Chronic ischemic heart disease, unspecified; D46.9 Myelodysplastic syndrome, unspecified; K30 Functional dyspepsia; E03.9 Hypothyroidism, unspecified; R10.30 Lower abdominal pain, unspecified; D61.818 Other pancytopenia
CPT/HCPCS: 36415; 80048; 84443; 93005

== ENCOUNTER 2019-02-21 14:03 | Outpatient (CLI) | payer MEDICARE, BC ==
--- NOTE | 2019-02-21 15:25 | XRAY Report ---
Reason: LOW BACK PAIN Procedure Date: 02/21/2019 Accession Number: [id number] / [id number] Procedure: XRS - Lumbar Spine 2 View CPT Code: Final Report FULL RESULT: EXAM: LUMBOSACRAL SPINE RADIOGRAPHY EXAM DATE: 02/21/2019 02:23 PM. CLINICAL HISTORY: LOW BACK PAIN. COMPARISONS: LUMBAR SPINE 2 VIEW 06/21/2016 11:57 AM. TECHNIQUE: 3 views. FINDINGS: Alignment: Normal. No spondylolisthesis or scoliosis. Bones: Five [id number] lumbar vertebral bodies are present. No fractures or bone lesions. Disks: Osteophytes at every level. L2-L3 disk space narrowing, subchondral sclerosis. L5-S1 disk space narrowing Facets: L4-L5, L5-S1 facet arthropathy Sacroiliac Joints: Unremarkable. Soft Tissues: Right upper quadrant clips. Vascular calcifications. The visualized bowel gas pattern is normal. IMPRESSION: Moderate degenerative changes increased since previous RADIA
[2019-02-21 18:04] LABS: BILIRUBIN,URINE NEGATIVE (NEGATIVE); GLUCOSE, URINE (UA) NEGATIVE (NEGATIVE); KETONES,URINE (UA) NEGATIVE (NEGATIVE); LEUKOCYTE ESTERASE, URINE NEGATIVE (NEGATIVE); NITRITE,URINE NEGATIVE (NEGATIVE); OCCULT BLOOD,URINE NEGATIVE (NEGATIVE); PH,URINE 5.5 PH (5.0-7.5); PROTEIN,URINE NEGATIVE (NEGATIVE); UROBILINOGEN,URINE 0.2 (NORMAL) E.U./dL (NORMAL)
[2019-02-21 18:21] LABS: BACTERIA,URINE Rare /HPF (None Seen); CLARITY,URINE CLEAR (CLEAR); RBC,URINE 0-5 /HPF (0-5); SQUAMOUS EPITHELIAL CELL,UR NONE SEEN (<= Few)
== END 2019-02-21 14:04 | disposition home or self-care (01) ==
LOC: DI.S 14:03
PROVIDERS: ATTEND Internal Medicine
DX: M47.816 Spondylosis without myelopathy or radiculopathy, lumbar region (principal); M47.817 Spondylosis without myelopathy or radiculopathy, lumbosacral region; M51.36 Other intervertebral disc degeneration, lumbar region; R35.0 Frequency of micturition
CPT/HCPCS: 72100; 81001; 87086

== ENCOUNTER 2019-04-16 21:53 | Outpatient (CLI) | payer MEDICARE, BC | END 2019-04-16 21:54 | disposition EMS.NT | LOC: EMS 21:53 | PROVIDERS: ATTEND Surgery | DX: R07.9 Chest pain, unspecified (principal); R03.0 Elevated blood-pressure reading, without diagnosis of hypertension ==

== ENCOUNTER 2019-04-21 14:01 | Outpatient (CLI) | payer MEDICARE, BC | END 2019-04-21 14:02 | disposition home or self-care (01) | LOC: LAB.S 14:01 | PROVIDERS: ATTEND Internal Medicine | DX: N40.1 Benign prostatic hyperplasia with lower urinary tract symptoms (principal); N13.8 Other obstructive and reflux uropathy; R00.1 Bradycardia, unspecified; I25.9 Chronic ischemic heart disease, unspecified; D46.9 Myelodysplastic syndrome, unspecified; K30 Functional dyspepsia; K21.9 Gastro-esophageal reflux disease without esophagitis; E78.5 Hyperlipidemia, unspecified; E03.9 Hypothyroidism, unspecified; M54.5 Low back pain; D61.818 Other pancytopenia | CPT/HCPCS: 36415; 84443 ==

== ENCOUNTER 2019-05-23 10:21 | Outpatient (CLI) | payer MEDICARE, BC ==
--- NOTE | 2019-05-23 16:55 | CONSULTATION NOTE ---
Palliative Care Follow Up - Referral Referring Provider: Dr. 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 He was treated with Vidaza 01/2017 to 01/2019 with ongoing persistent pancytopenia. They had been trying to work with him regarding supporting him with Procrit, at 20,000 units every other week, he is still required intermittent blood transfusions, and currently is receiving 1 today. This is for a hematocrit of 23.3 and hemoglobin 7.6. His most persistent symptoms have been fatigue, and has been feeling more poorly. They did try and bump up his Procrit, unfortunately he had hypertensive crisis and chest pain, his understanding is they were working on a treatment plan, awaiting bone marrow biopsy to evaluate his disease status. He is quite distressed this got put off, secondary to CO VID 19. In his mind this is an essential procedure, has had it done previously in the past, and is worried about the persistent fatigue on his current quality of life. Patient also has BPH, is currently started on Flomax, reports he is still up with nocturia 4-5 times at night. This does impact his sleep and feels this impacts his fatigue as well. He is not interested at this point time and follow-up with urology. He reports he does have some increased lower back pain, attributes this to wearing more sedentary, and unfortunately cannot see his regular physical therapist. Reports his diverticulum colitis is been well controlled with his diet modifications, and has regular bowel movements, with no recurrent episodes. His break up worker did increase his metoprolol to 75 mg twice daily, he has had no further chest pain, but did find a dramatic response to the increase in Procrit. He is anxious to see if there is any other treatment options. Patient still perceives patient's current quality of life is acceptable, though he does feel like he has declined some, he is hoping for better management of his fatigue. He is hoping for a bump in his energy with transfusion. He is still remains independent, does have support of community and friends, though is having more social isolation. Social History - Living Situation Living arrangement: At home Living Situation: Alone Support System: Patient lives alone, he does have a daughter in [place]. He does have friends and community to check on him frequently. He is currently working on a play, he is a playwrite and director, he is finding this quite uplifting and something to focus on. He is able to manage his own ADLs, he does except the rides, but otherwise is doing fairly well. Medications/Allergies - Medications Home Medications: Ambulatory Orders Medication Instructions Recorded Confirmed Brinzolamide 1% Ophth Drops [Azopt 1 drops RIGHTEYE BID 07/25/16 05/25/19 1% Ophth Drops] Levothyroxine Sodium [Synthroid] 12.5 mcg PO DAILY 07/25/16 05/25/19 Nitroglycerin [Nitrostat] 0.3 mg SL ONCE PRN 07/25/16 05/25/19 Ondansetron HCl [Zofran] 4 mg PO Q4H PRN 03/23/17 05/25/19 Multivitamin [Multiple Vitamins] 1 each PO DAILY 11/30/17 05/25/19 Rosuvastatin Calcium [Crestor] 5 mg PO QPM 11/30/17 05/25/19 Metoprolol Succinate [Toprol Xl] 75 mg PO BID 12/02/17 05/25/19 clonazePAM [KlonoPIN] 0.5 mg PO QPM PRN #30 tablet 03/11/18 05/25/19 Tamsulosin HCl [Flomax] 0.4 mg PO DAILY 03/31/19 05/25/19 - Allergies Allergies/Adverse Reactions: Allergies Allergy/AdvReac Type Severity Reaction Status Date / Time lorazepam [From Ativan] Allergy Intermediate Nausea Verified 04/29/19 11:36 amylase [From Creon] Allergy Edema Verified 04/29/19 11:36 lipase [From Creon] Allergy Edema Verified 04/29/19 11:36 protease [From Creon] Allergy Edema Verified 04/29/19 11:36 ciprofloxacin HCl * AdvReac Intermediate confusion Verified 04/29/19 11:36 [From Cipro] codeine AdvReac Intermediate Cramps Verified 04/29/19 11:36 levofloxacin [From Levaquin] AdvReac Intermediate confusion Verified 04/29/19 11:36 Sulfa (Sulfonamide AdvReac Intermediate Nausea Verified 04/29/19 11:36 Antibiotics) Review of Systems - Constitutional Constitutional: reports: Fatigue (worsening; receiving transfusion today), Weakness - Eyes Eyes: reports: Vision loss - Ears, Nose & Throat Ears, Nose & Throat: reports: Hearing loss, Dry mouth. denies: Mouth lesions - Cardiovascular Cardiovascular: reports: Palpitations, Exertional dyspnea, Decr. exercise tolerance. denies: Chest pain - Respiratory Respiratory: reports: SOB at rest, SOB with exertion (worsening). denies: Cough - Gastrointestinal Gastrointestinal: reports: Early satiety. denies: Constipation - Genitourinary Genitourinary: reports: Frequency, Nocturia (recently started on Flomax; up 5x night interferring with sleep) - Musculoskeletal Musculoskeletal: reports: Back pain (worsening), Stiffness, Muscle weakness - Integumentary Integumentary: reports: Dryness - Neurological Neurological: reports: General weakness - Psychiatric Psychiatric: reports: Depression, Anxiety - Endocrine Endocrine: reports: Hypothyroidism - Hematologic/Lymphatic Hematologic/Lymphatic: reports: Anemia - All Other Systems All Other Systems: reports: Reviewed and negative Physical Exam - Vital Signs Temperature: 36.6 C Pulse Rate: 60 Respiratory Rate: 18 Blood Pressure: 126/62 - Physical Exam General Appearance: positive: No acute distress, Alert, Anxious Eyes Bilateral: positive: Normal inspection ENT: positive: No signs of dehydration Neck: positive: Trachea midline Respiratory: positive: No respiratory distress Skin: positive: Pallor, Dryness Extremities: positive: No pedal edema Neurologic/Psychiatric: positive: Oriented x3, Mood/affect nml, Weakness Palliative Care - POLST Patient has POLST: Yes POLST Status: DNR, Selective Treatment Pain: Pain worsening, Location (back pain; unable to participate in PT which often helps; attributes also to sedentary lifestyle currently) Tiredness/Fatigue: Severe (7-10) Drowsiness/Sedation: Mild (1-3) Nausea: Mild (1-3) Anorexia: Mild (1-3) Dyspnea: Severe (7-10) Depression: Moderate (4-6) Anxiety: Moderate (4-6) Feelings of wellbeing/Perceived Quality of Life: Fair, Worsening Sleep: Sleeps poorly (attributed to nocturis) Constipation: Yes, Managed Performance Status: Patient does get frustrated with his decreased energy, does impact his activity tolerance and ability to do things that are important to him. He is still managing independently with his ADLs, is able to ambulate short distances. - Palliative Care Discussion: Patient currently feels his quality of life is acceptable, though he would like to have more energy, and is bothered somewhat by the fatigue. He is someone who octavio better with knowing what his options are, is feeling somewhat suspended and waiting for his bone marrow biopsy, finds this quite frustrating. Would like to have a further idea of what his treatment plan, is and implications regarding this and feels the bone marrow is part of this pollock to puzzle. Palliative care to reestablish, as patient now into his original 3-year prognosis, would be helpful to have new bone marrow, to help patient with long- term planning for prognostication. Results - Lab Results Lab results reviewed: Yes Lab and Imaging Results: Patient remains pancytopenic with a WBC is 0.9, hemoglobin 7.6, hematocrit 23.3, and platelets 35,000. Neutrophils are 0.1 Impression and Recommendations - Palliative Care Impression: This is a patrica 89-year-old gentleman with MDS and pancytopenia, quiring transfusion today. His most pressing quality of life issue, continues to be his fatigue, and impact on his activity.Has reestablished with palliative care for ongoing support regarding psychosocial support, and symptom management. Palliative care to continue to follow. Recommendations/Counseling Done: 1. MDS with pancytopenia, awaiting bone marrow biopsy for further treatment plan. Counseling provided regarding weighing benefits and burdens particularly in the context of risk of CO VID 19 exposure versus waiting for further definition of treatment plan. Patient feels Procrit has not been effective, and does not tolerate higher dose. Will be seeing oncology next week, agreed would reach out with patient's concerns as well. 2. Fatigue. This is multifactorial, including impacted by insomnia. He has had insomnia in the past, has tried multiple agents, has effectively used clonazepam, but finds some "hangover with this". 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 Discussed options, will at this point in time just use intermittently and continue to evaluate. He is awaiting hopefully better outcome from his Flomax, did offer referral to urology as they do now have and [place] at this time. 3. Advanced care planning. Patient does have POLST in place, with DNA R and selective treatments. He remains interested in prognostic variables, for future planning. He does perceive his quality of life is quite good right now, other than the persistent fatigue and unknown treatment plan. Palliative care to continue to provide support and anticipatory guidance moving forward. Time Spent: 45 minutes with greater than 50% of this done in counseling regarding goals of care, setting of rapport, and anticipatory guidance. Will coordinate with oncology team for next week's appointment
== END 2019-05-23 10:22 | disposition home or self-care (01) ==
LOC: PC 10:21
PROVIDERS: ATTEND Nurse Practitioner Adult Health
DX: Z51.5 Encounter for palliative care (principal); R53.83 Other fatigue; D46.9 Myelodysplastic syndrome, unspecified; N40.1 Benign prostatic hyperplasia with lower urinary tract symptoms; R35.1 Nocturia; R06.02 Shortness of breath; Z79.899 Other long term (current) drug therapy; Z72.820 Sleep deprivation; Z66 Do not resuscitate
CPT/HCPCS: 99215

== ENCOUNTER 2019-06-17 07:47 | Outpatient (CLI) | payer MEDICARE, BC | END 2019-06-17 07:48 | disposition home or self-care (01) | LOC: DI 07:47 | PROVIDERS: ATTEND Internal Medicine Cardiovascular Disease | DX: I25.10 Atherosclerotic heart disease of native coronary artery without angina pectoris (principal); I25.5 Ischemic cardiomyopathy; I10 Essential (primary) hypertension | CPT/HCPCS: 93306 ==

== ENCOUNTER 2019-06-24 13:22 | Emergency (ER) | payer MEDICARE, BC ==
--- NOTE | 2019-06-24 14:01 | XRAY Report ---
Reason: Chest pain Procedure Date: 06/24/2019 Accession Number: [id number] / [id number] Procedure: XR - Chest 1 View X-Ray CPT Code: 01641 Final Report FULL RESULT: EXAM: CHEST RADIOGRAPHY EXAM DATE: 06/24/2019 01:43 PM. CLINICAL HISTORY: Chest pain. COMPARISON: CHEST 1 VIEW 06/25/2018 4:21 PM. TECHNIQUE: 1 view. FINDINGS: Lungs/Pleura: No focal opacities evident. No pleural effusion. No pneumothorax. Mediastinum: Normal heart size. There is thoracic aortic tortuosity. Other: None. IMPRESSION: No acute intrathoracic plain film abnormality. RADIA
[2019-06-24 14:07] LABS: EOSINOPHILS % (AUTO) 0.8 %; HGB - HEMOGLOBIN 8.5 g/dL (14.0-18.0); LYMPHOCYTES % (AUTO) 58.3 %; MEAN CORPUSCULAR HEMOGLOBIN 33.1 pg (27.0-31.0); MEAN CORPUSCULAR HGB CONC 33.5 g/dL (32.0-36.0); MEAN CORPUSCULAR VOLUME 98.8 fL (80.0-94.0); MONOCYTES % (AUTO) 19.7 %; NEUTROPHILS % (AUTO) 18.8 %; RED BLOOD COUNT 2.57 10^6/uL (4.70-6.10); RED CELL DISTRIBUTION WIDTH 17.2 % (12.0-15.0)
[2019-06-24 14:10] LABS: PLT - PLATELET COUNT 23 10^3/uL (130-450); WHITE BLOOD COUNT 1.3 x10^3/uL (4.8-10.8)
[2019-06-24 14:13] LABS: ABNORMAL LYMPHS % (MANUAL) 0 %; BAND NEUTROPHILS % (MANUAL) 0 %
[2019-06-24 14:18] LABS: ALBUMIN 4.1 g/dL (3.2-5.5); ALBUMIN/GLOBULIN RATIO 1.5 (1.0-2.2); BILIRUBIN,TOTAL 1.1 mg/dL (0.2-1.0); CALCIUM 8.8 mg/dL (8.5-10.3); CREATININE 1.5 mg/dL (0.6-1.2); TOTAL PROTEIN 6.9 g/dL (6.7-8.2)
[2019-06-24 14:28] LABS: DIFFERENTIAL COMMENT MANUAL DIFFERENTIAL; LYMPHOCYTES # (MANUAL) 0.8 10^3/uL (1.5-3.5); LYMPHOCYTES % (MANUAL) 52 %; MONOCYTES # (MANUAL) 0.2 10^3/uL (0.0-1.0); RBC MORPHOLOGY (MULTIPLE) 3+ ANISOCYTOSIS (NORMAL)
[2019-06-24 14:31] VITALS: BP 178/82
--- NOTE | 2019-06-24 14:35 | ED Physician Documentation ---
History of Present Illness - Stated complaint Stated Complaint: DIZZINESS,COUGH, - Chief complaint Chief Complaint: Cardiac - History obtained from History obtained from: Patient - History of Present Illness Timing: How many days ago (3) Pain level max: 3 Pain level now: 2 - Additonal information Additional information: 89-year-old male with a history of myelodysplastic syndrome. Recently started on a new medication, luspatercept, And since that time has been feeling fatigued, short of breath, dry cough. No fever. Nothing makes it better or worse. He saw his oncologist today who sent him here for evaluation. Review of Systems Ten Systems: 10 systems reviewed and negative Constitutional: denies: Fever, Chills Nose: denies: Rhinorrhea / runny nose, Congestion Throat: denies: Sore throat Cardiac: reports: Chest pain / pressure (center of chest, pressure. non- radiating.) Respiratory: reports: Dyspnea, Cough (dry, mild) GI: denies: Abdominal Pain, Nausea, Vomiting, Diarrhea Skin: denies: Rash Musculoskeletal: denies: Neck pain, Back pain Neurologic: denies: Headache PD PAST MEDICAL HISTORY - Past Medical History Past Medical History: Yes Cardiovascular: Coronary artery disease, Angina, Atrial fibrillation, Murmur, Arrhythmia Respiratory: Pneumonia, Sleep apnea Neuro: None Endocrine/Autoimmune: HyPOthyroidism GI: GERD, Ulcers, Hiatal hernia, Colon polyps, Hemorrhoids, Pancreatitis, Diverticulitis, Cholelithiasis : Benign prostate hypertrophy, Frequency HEENT: Glaucoma, Chronic hearing loss Psych: Depression, Anxiety, Panic attacks Musculoskeletal: Osteoarthritis Derm: None, Rosacea - Past Surgical History Past Surgical History: Yes General: Cholecystectomy, Appendectomy, Colonoscopy, EGD Ortho: Arthroscopic surgery Cardiovascular: CABG, Coronary stent HEENT: Cataracts, Tonsil/Adenoidectomy - Present Medications Home Medications: Ambulatory Orders Medication Instructions Recorded Confirmed Brinzolamide 1% Ophth Drops [Azopt 1 drops RIGHTEYE BID 07/25/16 05/27/19 1% Ophth Drops] Levothyroxine Sodium [Synthroid] 12.5 mcg PO DAILY 07/25/16 05/27/19 Nitroglycerin [Nitrostat] 0.3 mg SL ONCE PRN 07/25/16 05/27/19 Ondansetron HCl [Zofran] 4 mg PO Q4H PRN 03/23/17 05/27/19 Multivitamin [Multiple Vitamins] 1 each PO DAILY 11/30/17 05/27/19 Rosuvastatin Calcium [Crestor] 5 mg PO QPM 11/30/17 05/27/19 Metoprolol Succinate [Toprol Xl] 75 mg PO DAILY 12/02/17 05/27/19 clonazePAM [KlonoPIN] 0.5 mg PO QPM PRN #30 tablet 03/11/18 05/27/19 Tamsulosin HCl [Flomax] 0.4 mg PO DAILY 03/31/19 05/27/19 - Allergies Allergies/Adverse Reactions: Allergies Allergy/AdvReac Type Severity Reaction Status Date / Time lorazepam [From Ativan] Allergy Intermediate Nausea Verified 05/27/19 09:07 amylase [From Creon] Allergy Edema Verified 05/27/19 09:07 lipase [From Creon] Allergy Edema Verified 05/27/19 09:07 protease [From Creon] Allergy Edema Verified 05/27/19 09:07 ciprofloxacin HCl * AdvReac Intermediate confusion Verified 05/27/19 09:07 [From Cipro] codeine AdvReac Intermediate Cramps Verified 05/27/19 09:07 levofloxacin [From Levaquin] AdvReac Intermediate confusion Verified 05/27/19 09:07 Sulfa (Sulfonamide AdvReac Intermediate Nausea Verified 05/27/19 09:07 Antibiotics) - Social History Does the pt smoke?: No Smoking Status: Never smoker Does the pt drink ETOH?: No Does the pt have substance abuse?: No - Immunizations Immunizations are current?: Yes - POLST Patient has POLST: Yes PD ED PE NORMAL - Vitals Vital signs reviewed: Yes - General General: Alert and oriented X 3, No acute distress, Well developed/nourished - HEENT HEENT: PERRL, Moist mucous membranes - Neck Neck: Supple, no meningeal sign - Cardiac Cardiac: RRR, Strong equal pulses - Respiratory Respiratory: No respiratory distress, Clear bilaterally - Abdomen Abdomen: Soft, Non tender, Non distended - Derm Derm: Warm and dry, No rash - Extremities Extremities: No edema, No calf tenderness / cord - Neuro Neuro: Alert and oriented X 3 - Psych Psych: Normal mood, Normal affect Results - Vitals Vitals: Vital Signs - 24 hr 06/24/19 06/24/19 13:33 14:30 Temperature 36.7 C Heart Rate 73 71 Respiratory 12 8 L Rate Blood Pressure 188/82 H 178/82 H O2 Saturation 100 100 Oxygen O2 Source Room air - EKG (time done) 1329 Rate: Rate (enter#) (71) Rhythm: NSR [place]: Normal QRS: Normal Ischemia: Non specific changes - Labs Labs: Laboratory Tests 06/24/19 06/24/19 06/24/19 13:58 13:58 13:58 WBC 1.3 L* RBC 2.57 L Hgb 8.5 L Hct 25.4 L MCV 98.8 H MCH 33.1 H MCHC 33.5 RDW 17.2 H Plt Count 23 L* Neut # (Auto) Not Reportable Lymph # (Auto) Not Reportable [place] # (Auto) Not Reportable Eos # (Auto) Not Reportable Baso # (Auto) Not Reportable Absolute Nucleated RBC Not Reportable Total Counted 25 Band Neuts % (Manual) 0 Reactive Lymphs % (Man) 12 Abnorm Lymph % (Manual) 0 Nucleated RBC % Not Reportable Neutrophils # (Manual) 0.3 L* Lymphocytes # (Manual) 0.8 L Monocytes # (Manual) 0.2 Eosinophils # (Manual) 0.0 Basophils # (Manual) 0.0 Differential Comment MANUAL DIFFERENTIAL Manual Slide Review Indicated RBC Morph Micro Appear 3+ ANISOCYTOSIS Sodium 132 L Potassium 4.5 Chloride 102 Carbon Dioxide 20 L Anion Gap 10.0 BUN 24 H Creatinine 1.5 H Estimated GFR (MDRD) 44 L Glucose 103 H Calcium 8.8 Total Bilirubin 1.1 H AST 32 ALT 27 Alkaline Phosphatase 64 Troponin I High Sens 8.3 Total Protein 6.9 Albumin 4.1 Globulin 2.8 Albumin/Globulin Ratio 1.5 Lipase 45 - Rads (name of study) cxr Radiology: Prelim report reviewed, EMP read contemporaneously, See rad report (No acute intrathoracic plain film abnormality. ) PD MEDICAL DECISION MAKING - ED course Complexity details: reviewed results, re-evaluated patient, considered diff erential, d/w patient ED course: Patient with what appears to be a side effect to his new medication. The half- life of this medication is approximately 11 days. Expect that the symptoms will continue for some time. Attempted to call his oncologist, Dr. Garcia, however she was not available and did not answer the phone. Message left. No callback received. We will have her him follow-up with her for further care. Patient is well-appearing, nontoxic. Afebrile. No evidence of hypoxia, pulmonary embolus, acute coronary syndrome. Patient counseled regarding signs and symptoms for which I believe and urgent re-evaluation would be necessary. Patient with good understanding of and agreement to plan and is comfortable going home at this time This document was made in part using voice recognition software. While efforts are made to proofread this document, sound alike and grammatical errors may occur. Departure - Departure Disposition: 01 Home, Self Care Clinical Impression: Medication side effects, Pancytopenia, Myelodysplastic syndrome Condition: Good Instructions: ED Chest Pain Atypical Unkn Cause Follow-Up: Evens Aguilar MD [Primary Care Provider] - Ed Garcia MD [Physician No Access] - Within 1 week Comments: Your testing is normal today. This is likely a side effect of the injection that they gave you. The side effects may last for 2 to 3 weeks. Return if you worsen.
== END 2019-06-24 14:58 | disposition home or self-care (01) ==
LOC: ED 13:22
DX: R05 Cough (principal); R53.83 Other fatigue; R06.02 Shortness of breath; T50.995A Adverse effect of other drugs, medicaments and biological substances, initial encounter; D61.818 Other pancytopenia; D46.9 Myelodysplastic syndrome, unspecified; Z11.59 Encounter for screening for other viral diseases
CPT/HCPCS: 36415; 71045; 80053; 83690; 84484; 85025; 93005; 99284; U0004; 81599

== ENCOUNTER 2019-06-27 10:05 | Outpatient (CLI) | payer MEDICARE, BC | END 2019-06-27 10:06 | disposition critical access hospital (66) | LOC: EMS 10:05 | PROVIDERS: ATTEND Surgery | DX: R05 Cough (principal); R19.7 Diarrhea, unspecified; R50.9 Fever, unspecified | CPT/HCPCS: A0425; A0429 ==

== ENCOUNTER 2019-06-27 10:44 | Emergency (ER) | payer MEDICARE, BC ==
--- NOTE | 2019-06-27 12:02 | XRAY Report ---
Reason: Chest pain Procedure Date: 06/27/2019 Accession Number: [id number] / [id number] Procedure: XR - Chest 1 View X-Ray CPT Code: 34305 Final Report FULL RESULT: EXAM: CHEST RADIOGRAPHY EXAM DATE: 06/27/2019 11:55 AM. CLINICAL HISTORY: Chest pain. COMPARISON: CHEST 1 VIEW 06/24/2019 1:26 PM. TECHNIQUE: 1 view. FINDINGS: Lungs/Pleura: Bibasilar atelectasis. No pleural effusion. No pneumothorax. Decrease in volumes Mediastinum: Post sternotomy. Heart size normal. Ectatic aorta. Other: None. IMPRESSION: Bibasilar atelectasis RADIA
[2019-06-27] MEDS ORDERED: DEXAMETHASONE 10 MG/ML VIAL IVP STA (12:56)
[2019-06-27] MEDS ORDERED: cefTRIAXone 1 GM in SODIUM CHLORIDE 0.9% MINIBAG 100 ML IV STA (12:56)
[2019-06-27] MEDS ORDERED: KETOROLAC 30 MG/ML VIAL IVP STA (12:56)
--- NOTE | 2019-06-27 13:01 | ED Physician Documentation ---
PD HPI DYSPNEA - Stated complaint Stated Complaint: COUGH - Chief complaint Chief Complaint: Resp - History obtained from History obtained from: Patient - History of Present Illness Timing - onset: How many days ago (4) Timing - onset during: Rest Timing - duration: Days (4) Timing - details: Gradual onset, Still present Inciting event(s): Other (new medication) Improved by: Rest Worsened by: Exertion, Coughing Associated symptoms: Cough, Chest pain / discomfort. No: Wheezing, Bilateral edema, Unilateral edema Similar symptoms before: Diagnosis (medication side effectg) Recently seen: Emergency Dept - Additional information Additional information: 89-year-old male with history of myelodysplastic syndrome has recently started a new medication Luspastercept. He developed symptoms of cough shortness of breath and chest pain associated with this and this is a known side effect of this medication that is likely to last 2 to 3 weeks. The patient is come back to the emergency department with increased pain with cough and concern for worsening. He has had some sweats he does not have a fever he is not had any production from his cough. He has been to the hospital twice once in the beginning of May and once 3 days ago these are his only exposures to outside possibility of coronavirus. He was tested 2 days ago was negative. Review of Systems Constitutional: reports: Chills, Fatigue. denies: Fever Eyes: denies: Decreased vision Ears: denies: Ear pain Nose: denies: Rhinorrhea / runny nose, Congestion Throat: denies: Sore throat Cardiac: reports: Chest pain / pressure. denies: Palpitations, Pedal edema, Calf pain Respiratory: reports: Dyspnea, Cough GI: denies: Abdominal Pain, Nausea, Vomiting : denies: Dysuria, Frequency PD PAST MEDICAL HISTORY - Past Medical History Past Medical History: Yes Cardiovascular: Coronary artery disease, Angina, Atrial fibrillation, Murmur, Arrhythmia Respiratory: Pneumonia, Sleep apnea Neuro: None Endocrine/Autoimmune: HyPOthyroidism GI: GERD, Ulcers, Hiatal hernia, Colon polyps, Hemorrhoids, Pancreatitis, Diverticulitis, Cholelithiasis : Benign prostate hypertrophy, Frequency HEENT: Glaucoma, Chronic hearing loss Psych: Depression, Anxiety, Panic attacks Musculoskeletal: Osteoarthritis Derm: None, Rosacea Other Past Medical History: MDS - Past Surgical History Past Surgical History: Yes General: Cholecystectomy, Appendectomy, Colonoscopy, EGD Ortho: Arthroscopic surgery Cardiovascular: CABG, Coronary stent HEENT: Cataracts, Tonsil/Adenoidectomy - Present Medications Home Medications: Ambulatory Orders Medication Instructions Recorded Confirmed Brinzolamide 1% Ophth Drops [Azopt 1 drops RIGHTEYE BID 07/25/16 05/27/19 1% Ophth Drops] Levothyroxine Sodium [Synthroid] 12.5 mcg PO DAILY 07/25/16 06/27/19 Nitroglycerin [Nitrostat] 0.3 mg SL ONCE PRN 07/25/16 06/27/19 Ondansetron HCl [Zofran] 4 mg PO Q4H PRN 03/23/17 06/27/19 Multivitamin [Multiple Vitamins] 1 each PO DAILY 11/30/17 06/27/19 Rosuvastatin Calcium [Crestor] 5 mg PO QPM 11/30/17 06/27/19 Metoprolol Succinate [Toprol Xl] 75 mg PO DAILY 12/02/17 06/27/19 clonazePAM [KlonoPIN] 0.5 mg PO QPM PRN #30 tablet 03/11/18 06/27/19 Tamsulosin HCl [Flomax] 0.4 mg PO DAILY 03/31/19 06/27/19 Azithromycin [Zithromax] 250 mg PO DAILY #6 tablet 06/27/19 Hydrocodone/Acetaminophen 1 - 2 each PO Q6H PRN #14 tablet 06/27/19 [Hydrocodon-Acetaminophen 5-325] - Allergies Allergies/Adverse Reactions: Allergies Allergy/AdvReac Type Severity Reaction Status Date / Time lorazepam [From Ativan] Allergy Intermediate Nausea Verified 06/27/19 11:03 amylase [From Creon] Allergy Edema Verified 06/27/19 11:03 lipase [From Creon] Allergy Edema Verified 06/27/19 11:03 protease [From Creon] Allergy Edema Verified 06/27/19 11:03 ciprofloxacin HCl * AdvReac Intermediate confusion Verified 06/27/19 11:03 [From Cipro] codeine AdvReac Intermediate Cramps Verified 06/27/19 11:03 levofloxacin [From Levaquin] AdvReac Intermediate confusion Verified 06/27/19 11:03 Sulfa (Sulfonamide AdvReac Intermediate Nausea Verified 06/27/19 11:03 Antibiotics) - Social History Does the pt smoke?: No Smoking Status: Never smoker Does the pt drink ETOH?: No Does the pt have substance abuse?: No - Immunizations Immunizations are current?: Yes - POLST Patient has POLST: Yes PD ED PE NORMAL - Vitals Vital signs reviewed: Yes (tachy and hypertensive ) - General General: Alert and oriented X 3, No acute distress, Well developed/nourished, Other (The patient appears well at rest when he coughs he appears with a distressed look on his face. He appears to be in pain. .) - HEENT HEENT: Atraumatic, PERRL, EOMI - Neck Neck: Supple, no meningeal sign, No bony TTP - Cardiac Cardiac: RRR, No murmur - Respiratory Respiratory: No respiratory distress, Other (light rhonchi at the right base ) - Abdomen Abdomen: Normal bowel sounds, Soft, Non tender, Non distended, No organomegaly - Back Back: No CVA TTP, No spinal TTP - Derm Derm: Normal color, No rash - Extremities Extremities: No deformity, No edema - Neuro Neuro: Alert and oriented X 3, photonics technician 2-12 intact, No motor deficit, No sensory deficit, Normal speech Eye Opening: Spontaneous Motor: Obeys Commands Verbal: Oriented GCS Score: 15 - Psych Psych: Normal mood, Normal affect Results - Vitals Vitals: Vital Signs - 24 hr 06/27/19 06/27/19 06/27/19 10:58 11:57 12:32 Temperature 37.5 C Heart Rate 103 H 104 H 98 Respiratory 20 16 16 Rate Blood Pressure 163/77 H 148/75 H 142/69 H O2 Saturation 100 97 98 06/27/19 06/27/19 13:42 15:00 Temperature Heart Rate 106 H 100 Respiratory 18 16 Rate Blood Pressure 139/67 H 105/74 O2 Saturation 98 96 Oxygen O2 Source Room air - EKG (time done) 1054 Rate: Rate (enter#) (108) Rhythm: Sinus tachycardia Ischemia: Non specific changes (diffuse ST-T flattening ) Compare to prior EKG: Changed from prior EKG (SPT 06-24-2019 the rate had increased, the QTc has normalized) Computer interpretation: Agree with computer - Labs Labs: Laboratory Tests 06/27/19 06/27/19 06/27/19 13:04 13:04 13:04 WBC 0.9 L* RBC 2.44 L Hgb 8.1 L Hct 24.2 L MCV 99.2 H MCH 33.2 H MCHC 33.5 RDW 17.4 H Plt Count 17 L* Neut # (Auto) 0.4 L* Lymph # (Auto) 0.2 L [place] # (Auto) 0.3 Eos # (Auto) 0.0 Baso # (Auto) 0.0 Absolute Nucleated RBC 0.06 Nucleated RBC % 6.5 WBC Morphology NORMAL APPEARANCE Platelet Estimate DECREASED (<130,000) Platelet Morphology NORMAL APPEARANCE RBC Morph Micro Appear 1+ SCHISTOCYTES Sodium 133 L Potassium 4.0 Chloride 105 Carbon Dioxide 18 L Anion Gap 10.0 BUN 24 H Creatinine 1.4 H Estimated GFR (MDRD) 48 L Glucose 97 Calcium 8.2 L Total Bilirubin 1.8 H AST 30 ALT 27 Alkaline Phosphatase 57 Troponin I High Sens 10.5 Total Protein 6.5 L Albumin 3.9 Globulin 2.6 Albumin/Globulin Ratio 1.5 Lipase 33 - Rads (name of study) chest Radiology: Prelim report reviewed (Impression: Bibasilar atelectasis.), EMP read indepedently, See rad report PD MEDICAL DECISION MAKING - ED course Complexity details: reviewed old records, reviewed results, re-evaluated patient, considered differential, d/w patient ED course: 89-year-old male on treatment for myelodysplastic syndrome with a new medication has a very painful cough this is thought to be associated with his medication. He is concerned that there may be something else going on as well. I have elected to treat him symptomatically with Toradol and dexamethasone and we will provide antibiotic support as well. Dr. Carter is consulted in the case and recommends symptomatic treatment. The patient does not have much relief with the toradal and he is subsequently given IV dilaudid with marked improvement. He feels comfortable now thankful for pain relief and feels comfortable going home. Departure - Departure Disposition: 01 Home, Self Care Clinical Impression: Medication side effects Condition: Stable Instructions: ED Upper Resp Infec Abx Tx, ED Drug React Adverse Other Follow-Up: Evens Aguilar MD [Primary Care Provider] - Prescriptions: Azithromycin [Zithromax] 250 mg PO DAILY #6 tablet Hydrocodone/Acetaminophen [Hydrocodon-Acetaminophen 5-325] 1 - 2 each PO Q6H PRN #14 tablet PRN Reason: pain Discharge Date/Time: 06/27/19 15:58
[2019-06-27 13:11] LABS: BASOPHILS % (AUTO) 1.1 %; HGB - HEMOGLOBIN 8.1 g/dL (14.0-18.0); LYMPHOCYTES # (AUTO) 0.2 10^3/uL (1.5-3.5); LYMPHOCYTES % (AUTO) 26.1 %; MEAN CORPUSCULAR HEMOGLOBIN 33.2 pg (27.0-31.0); MEAN CORPUSCULAR HGB CONC 33.5 g/dL (32.0-36.0); MEAN CORPUSCULAR VOLUME 99.2 fL (80.0-94.0); MONOCYTES # (AUTO) 0.3 10^3/uL (0.0-1.0); MONOCYTES % (AUTO) 29.3 %; NEUTROPHILS % (AUTO) 41.3 %; RED BLOOD COUNT 2.44 10^6/uL (4.70-6.10); RED CELL DISTRIBUTION WIDTH 17.4 % (12.0-15.0)
[2019-06-27 13:17] LABS: PLT - PLATELET COUNT 17 10^3/uL (130-450); WHITE BLOOD COUNT 0.9 x10^3/uL (4.8-10.8)
[2019-06-27 13:18] LABS: NEUTROPHILS # (AUTO) 0.4 10^3/uL (1.5-6.6)
[2019-06-27 13:23] LABS: ALBUMIN 3.9 g/dL (3.2-5.5); ALBUMIN/GLOBULIN RATIO 1.5 (1.0-2.2); BILIRUBIN,TOTAL 1.8 mg/dL (0.2-1.0); CALCIUM 8.2 mg/dL (8.5-10.3); CREATININE 1.4 mg/dL (0.6-1.2); TOTAL PROTEIN 6.5 g/dL (6.7-8.2)
[2019-06-27] MEDS ORDERED: ONDANSETRON 4 MG/2 ML VIAL IVP STA (13:44)
[2019-06-27] MEDS ORDERED: HYDROmorphone 1 MG/ML CARPUJECT IVP STA (13:44)
[2019-06-27 14:00] LABS: PLATELET ESTIMATE, MANUAL DECREASED (<130,000) (NORMAL)
[2019-06-27 14:02] LABS: PLATELET MORPHOLOGY NORMAL APPEARANCE (NORMAL)
[2019-06-27 15:04] VITALS: BP 105/74
== END 2019-06-27 15:58 | disposition home or self-care (01) ==
LOC: EDUNIT# → ED 10:44
DX: R05 Cough (principal); R06.02 Shortness of breath; R07.9 Chest pain, unspecified; T50.995A Adverse effect of other drugs, medicaments and biological substances, initial encounter; Z20.828 Contact with and (suspected) exposure to other viral communicable diseases
CPT/HCPCS: 36415; 71045; 80053; 81599; 83690; 84484; 85025; 93005; 96365; 96375; 99284; J1170

== ENCOUNTER 2019-06-30 00:02 | Outpatient (CLI) | payer MEDICARE, BC | END 2019-06-30 00:03 | disposition critical access hospital (66) | LOC: EMS 00:02 | PROVIDERS: ATTEND Surgery | DX: R05 Cough (principal); R06.02 Shortness of breath; R50.9 Fever, unspecified | CPT/HCPCS: A0425; A0429 ==